=== PATIENT | male | born 1960 | race Caucasian/White ===

== ENCOUNTER 2017-08-16 12:46 | Inpatient (IN) ==
[2017-08-16] MEDS ORDERED: Aspirin 81 MG TAB.CHEW PO ONE (13:14)
[2017-08-16] MEDS ORDERED: *HR* LORazepam 2 MG/ML VIAL IVP ONE (13:15)
--- NOTE | 2017-08-16 13:15 | Emergency Department Note ---
Disposition Clinical Impression: Community acquired pneumonia, CHF (congestive heart failure), RONI (acute kidney injury), Respiratory distress, Elevated troponin Disposition: Admitted As Inpatient Condition: Critical Time of Disposition: 17:00 SOB HPI - General Chief Complaint: ED Shortness of Breath/Dyspnea Stated Complaint: PERLA Time Seen by Provider: 08/16/17 12:55 Source: patient, family Limitations: no limitations Nursing Notes Reviewed: Yes Vital Signs Reviewed: Yes - History of Present Illness Mr. Pitts, a 57-year-old man, presents from home for evaluation of dyspnea. Onset is ago and worsening. He now is unable to lie flat He has no chest pain, no fevers, no chills, no cough. He arrives wearing oxygen but states he is by with it. He has no home oxygen, no home breathing treatments, no history of COPD. PMH: CAD with ACS s/p stent in early . HTN, HLD, DM - Related Data Home Medications Medication Instructions Recorded Confirmed Allopurinol [Zyloprim 300 MG] 300 mg PO DAILY 08/16/17 08/16/17 Amlodipine Besylate 10 mg PO DAILY 08/16/17 08/16/17 Aspirin [Lo-Dose Aspirin EC] 81 mg PO DAILY 08/16/17 08/16/17 Carvedilol [Coreg] 6.25 mg PO BID 08/16/17 08/16/17 Cholecalciferol (D-3) [Vitamin D] 5,000 unit PO DAILY 08/16/17 08/16/17 Escitalopram [Lexapro] 20 mg PO DAILY 08/16/17 08/16/17 Fenofibrate Nanocrystallized 145 mg PO DAILY 08/16/17 08/16/17 [Tricor] Finasteride [Proscar] 5 mg PO DAILY 08/16/17 08/16/17 Insulin ASPART [Novolog] 5 - 15 unit SQ TIDWM 08/16/17 08/16/17 Insulin DETEMIR [Levemir Flextouch] 40 unit SQ HS 08/16/17 08/16/17 Insulin DETEMIR [Levemir Flextouch] 50 unit SQ QAM 08/16/17 08/16/17 Losartan Potassium [Cozaar] 100 mg PO DAILY 08/16/17 08/16/17 Metoprolol [Lopressor] 100 mg PO BID 08/16/17 08/16/17 Rosuvastatin [Crestor] 40 mg PO DAILY 08/16/17 08/16/17 Tamsulosin [Flomax] 0.4 mg PO DAILY 08/16/17 08/16/17 cloNIDine HCl [CloNIDine HCl] 0.1 mg PO DAILY 08/16/17 08/16/17 clonazePAM [Klonopin] 0.5 mg PO BID 08/16/17 08/16/17 glipiZIDE [Glucotrol] 5 mg PO BID 08/16/17 08/16/17 metFORMIN [Glucophage] 500 mg PO BID 08/16/17 08/16/17 Allergies Allergy/AdvReac Type Severity Reaction Status Date / Time No Known Allergies Allergy Verified 01/05/17 18:47 All systems ED: reviewed and negative except as stated. Review of Systems: As Per HPI Past Medical History - Past Medical History Medical history: Reports: coronary artery disease, diabetes, hyperlipidemia, hypertension, myocardial infarction Psychiatric history: Reports: anxiety, depression - Social History Smoking Status: Former smoker Smokeless Tobacco Status: No Alcohol use: Reports: none Physical Exam - General Limitations: no limitations General appearance: alert, in no apparent distress Course Course Narrative: Patient's presentation is concerning for multiple potential etiologies. He has no history of congestive heart are however, he has increasing pedal edema and orthopnea. Patient is dyspneic and diaphoretic also concerning for acute coronary syndrome. He has no chest pain. Chest x-ray concerning for pulmonary edema. Troponin is elevated at 0.17. Patient remains chest pain-free. Abdomen 1.71; this is above his baseline despite the setting of chronic kidney disease. Patient is in acute kidney injury. EKG is concerning for new left bundle-branch block. Most recent EKGs in 2013. Patient has not had a stress test or cardiac intervention in, "many years." Patient has done well on BiPAP. Chest x-ray concerning for pneumonia. Will admit the patient for pneumonia, elevated throat, congestive heart failure , bilateral pulmonary edema. I discussed the above with the patient and family at bedside. They have no additional questions or concerns this time. I also discussed the patient and his critical picture with the admitting physician, Dr. Rubio, who agrees to accept the patient for continued evaluation and management. Chest X-Ray 08/16/17 13:14 IMPRESSION: Pulmonary edema and trace bilateral pleural effusions. D/ / Keo Moreno MD / Keo Moreno MD Interpreting Provider: Keo Moreno MD Vital Signs Temperature 98.2 F 08/16/17 12:49 Pulse Rate 80 08/16/17 12:49 Respiratory Rate 22 08/16/17 12:49 Blood Pressure 201/123 08/16/17 12:49 O2 Sat by Pulse Oximetry 95 08/16/17 12:49 Temperature 98.2 F 08/16/17 12:49 Pulse Rate 69 08/16/17 16:29 Respiratory Rate 16 08/16/17 16:29 Blood Pressure 166/108 08/16/17 16:29 O2 Sat by Pulse Oximetry 96 08/16/17 16:29 Oxygen Delivery Oxygen Delivery Nasal Cannula Shortness of Breath/Dyspnea - Medical Records Medical records reviewed: Yes I reviewed the patient's medical records. - Lab Data Lab results reviewed: Yes I reviewed the patient's lab results. Result diagrams: 08/16/17 13:20 08/16/17 13:20 Lab Results 08/16/17 08/16/17 08/16/17 Range/Units 13:20 13:20 13:20 WBC 12.2 H (4.3-11.1) K/mcL RBC 4.35 (4.19-5.50) M/mcL Hgb 13.3 (12.9-16.9) g/dL Hct 39.2 (37.5-50.1) % MCV 90.1 (83.0-100.0) fL MCH 30.6 (28.0-33.3) pg MCHC 33.9 (31.6-35.5) g/dL RDW 13.8 (11.5-14.5) % Plt Count 300 (140-400) K/mcL MPV 10.3 (9.4-12.4) fL Immature Gran % 1.0 (0-4) % Seg Neutrophils % 86.6 % Lymphocytes % 5.9 % Monocytes % 5.6 % Eosinophils % 0.6 % Basophils % 0.3 % Neutrophils # 10.6 H (1.6-8.9) K/mcL Lymphocytes # 0.7 (0.6-4.6) K/mcL Monocytes # 0.7 (0.0-1.3) K/mcL Eosinophils # 0.1 (0.0-0.6) K/mcL Basophils # 0.0 (0.0-0.2) K/mcL PT 11.7 (9.4-12.1) Seconds INR 1.1 APTT 31.8 (26.0-36.0) Seconds D-Dimer 514 H (0-500) ng/mLFEU Sodium 140 (136-145) mEq/L Potassium 4.0 (3.5-4.5) mEq/L Chloride 107 (98-109) mEq/L Carbon Dioxide 26 (19-29) mEq/L BUN 20 (8-26) mg/dL Creatinine 1.71 H (0.72-1.25) mg/dL Est GFR ( Amer) 50 L (> 60) Est GFR (Non-Af Amer) 41 L (> 60) BUN/Creatinine Ratio 12 (6-26) Glucose 104 H (70-99) mg/dL POC Glucose (58-89) Calculated Osmolality 293 (280-300) Lactic Acid (0.5-2.2) mmol/L Calcium 9.3 (8.6-10.8) mg/dL Phosphorus (2.3-4.7) mg/dL Magnesium (1.6-2.6) mg/dL Troponin I (0-0.03) ng/mL 08/16/17 08/16/17 08/16/17 Range/Units 13:20 15:43 15:43 WBC (4.3-11.1) K/mcL RBC (4.19-5.50) M/mcL Hgb (12.9-16.9) g/dL Hct (37.5-50.1) % MCV (83.0-100.0) fL MCH (28.0-33.3) pg MCHC (31.6-35.5) g/dL RDW (11.5-14.5) % Plt Count (140-400) K/mcL MPV (9.4-12.4) fL Immature Gran % (0-4) % Seg Neutrophils % % Lymphocytes % % Monocytes % % Eosinophils % % Basophils % % Neutrophils # (1.6-8.9) K/mcL Lymphocytes # (0.6-4.6) K/mcL Monocytes # (0.0-1.3) K/mcL Eosinophils # (0.0-0.6) K/mcL Basophils # (0.0-0.2) K/mcL PT 12.0 (9.4-12.1) Seconds INR 1.1 APTT 33.5 (26.0-36.0) Seconds D-Dimer (0-500) ng/mLFEU Sodium (136-145) mEq/L Potassium (3.5-4.5) mEq/L Chloride (98-109) mEq/L Carbon Dioxide (19-29) mEq/L BUN (8-26) mg/dL Creatinine (0.72-1.25) mg/dL Est GFR ( Amer) (> 60) Est GFR (Non-Af Amer) (> 60) BUN/Creatinine Ratio (6-26) Glucose (70-99) mg/dL POC Glucose (58-89) Calculated Osmolality (280-300) Lactic Acid 0.9 (0.5-2.2) mmol/L Calcium (8.6-10.8) mg/dL Phosphorus (2.3-4.7) mg/dL Magnesium (1.6-2.6) mg/dL Troponin I 0.12 H* (0-0.03) ng/mL 08/16/17 08/16/17 08/16/17 Range/Units 15:43 15:43 16:01 WBC (4.3-11.1) K/mcL RBC (4.19-5.50) M/mcL Hgb (12.9-16.9) g/dL Hct (37.5-50.1) % MCV (83.0-100.0) fL MCH (28.0-33.3) pg MCHC (31.6-35.5) g/dL RDW (11.5-14.5) % Plt Count (140-400) K/mcL MPV (9.4-12.4) fL Immature Gran % (0-4) % Seg Neutrophils % % Lymphocytes % % Monocytes % % Eosinophils % % Basophils % % Neutrophils # (1.6-8.9) K/mcL Lymphocytes # (0.6-4.6) K/mcL Monocytes # (0.0-1.3) K/mcL Eosinophils # (0.0-0.6) K/mcL Basophils # (0.0-0.2) K/mcL PT (9.4-12.1) Seconds INR APTT (26.0-36.0) Seconds D-Dimer (0-500) ng/mLFEU Sodium (136-145) mEq/L Potassium (3.5-4.5) mEq/L Chloride (98-109) mEq/L Carbon Dioxide (19-29) mEq/L BUN (8-26) mg/dL Creatinine (0.72-1.25) mg/dL Est GFR ( Amer) (> 60) Est GFR (Non-Af Amer) (> 60) BUN/Creatinine Ratio (6-26) Glucose (70-99) mg/dL POC Glucose 66 (58-89) Calculated Osmolality (280-300) Lactic Acid (0.5-2.2) mmol/L Calcium (8.6-10.8) mg/dL Phosphorus 2.9 (2.3-4.7) mg/dL Magnesium 1.4 L (1.6-2.6) mg/dL Troponin I 0.13 H* (0-0.03) ng/mL - EKG Data EKG attestation: Yes I reviewed and interpreted this EKG. EKG results narrative: EKG data told August 2017 at 13:02 interpreted as sinus rhythm with a rate of 81. Normal intervals appear 133, QRS 177, QT/QTC 434/472. Normal axis. Left bundle branch block that is new and not on comparative EKG dated 12/22/2013. Otherwise nonspecific ST-T changes. Critical Care Time Critical Care Time: Yes Total Critical Care Time: 70 Attestation: Critical care time 35 minutes. Attestation Statement - Attestation Attestation: Patient was seen with resident physician. I reviewed the history, physical, assessment and plan, and agree with the findings. I also personally evaluated this patient and had [id number] time with this patient. 57-year-old male presents to the emergency department with chief complaint of shortness of breath. Patient states that his shortness of breath is gotten progressively worse the last 24-48 hours. He also has a history of anxiety. He states that he has been sweating because of the anxiety. He feels some tightness in his chest but not necessarily chest pain. No nausea vomiting or diarrhea. No abdominal pain. He does note that he has had increased swelling in the lower extremities with some weight gain over nonspecified. At time. Denies oxygen requirements at home. Denies CHF. Denies COPD. On exam vital signs patient is markedly hypertensive. Other vital signs show hypoxia. ENT is unremarkable but the. Patient appears diaphoretic. Heart regular rhythm and rate. Lungs do not hear any abnormalities. Abdomen is soft and nontender. Extremities show 1+ edema in the extremities bilaterally. Neurologically intact. ED course I will do a workup for pulmonary issues. D-dimer was mildly elevated so did order a CTA of the chest. Additionally will need to do a chest pain workup. Patient was started on BiPAP. Patient's troponin came back mildly elevated and with a left bundle branch block we called interventional cardiology. Their suggestion was to continue with the CT scan of the chest, and admission to medicine with possible cardiology consult. This revealed pneumonia in addition to CHF, in addition to the kidney dysfunction. We did note the patient had some renal dysfunction prior to the CT scan that we felt it was an acceptable risk considering the patient's presentation and need to exclude some of the causes of his elevated troponin and respiratory distress. Patient was started on a nitro drip, was also given Lasix. We will start on antibiotics and get blood cultures. Will and admitting to the hospitalist service for respiratory difficulty and pneumonia. Critical care time 70 minutes.
[2017-08-16 13:28] LABS: Basophils % 0.3 %; Eosinophils # 0.1 K/mcL (0.0-0.6); Eosinophils % 0.6 %; Hematocrit 39.2 % (37.5-50.1); Hemoglobin 13.3 g/dL (12.9-16.9); Lymphocytes # 0.7 K/mcL (0.6-4.6); Lymphocytes % 5.9 %; Mean Corpuscular HGB Conc 33.9 g/dL (31.6-35.5); Mean Corpuscular Hemoglobin 30.6 pg (28.0-33.3); Mean Corpuscular Volume 90.1 fL (83.0-100.0); Mean Platelet Volume 10.3 fL (9.4-12.4); Monocytes # 0.7 K/mcL (0.0-1.3); Monocytes % 5.6 %; Neutrophils # 10.6 K/mcL (1.6-8.9); Platelet Count 300 K/mcL (140-400); Red Blood Count 4.35 M/mcL (4.19-5.50); Red Cell Distribution Width 13.8 % (11.5-14.5); Segmented Neutrophils % 86.6 %
[2017-08-16 13:38] LABS: INR 1.1; Prothrombin Time 11.7 Seconds (9.4-12.1)
[2017-08-16 13:40] LABS: Activated Partial Thrombo Time 31.8 Seconds (26.0-36.0)
[2017-08-16 13:42] LABS: Calcium 9.3 mg/dL (8.6-10.8)
[2017-08-16] MEDS ORDERED: Furosemide 40 MG/4 ML VIAL IVP ONE (14:00)
[2017-08-16] MEDS: Nitroglycerin 25 MG/250 ML INFUS..BTL IVC SCH (14:10)
[2017-08-16] MEDS ORDERED: cefTRIAXone 1,000 MG in Water for inj. (sterile) 10 ML IVP ONE (15:10)
[2017-08-16 15:58] LABS: INR 1.1
[2017-08-16 16:00] LABS: Activated Partial Thrombo Time 33.5 Seconds (26.0-36.0)
[2017-08-16 16:02] LABS: Magnesium 1.4 mg/dL (1.6-2.6); Phosphorous 2.9 mg/dL (2.3-4.7)
[2017-08-16] MEDS ORDERED: Acetaminophen 325 MG TABLET PO ONE (16:24)
[2017-08-16] MEDS ORDERED: *HR* Dextrose 50 % in Water (Syg) 50 ML SYRINGE IVP PRN (17:41)
[2017-08-16] MEDS ORDERED: Dextrose Gel 15 GM PO PRN ×2 (17:41)
[2017-08-16] MEDS ORDERED: D5% in Water 1,000 ML IVC PRN (17:41)
[2017-08-16] MEDS ORDERED: Naloxone 0.4 MG/ML INJ IVP PRN (17:43)
[2017-08-16] MEDS ORDERED: Ondansetron 4 MG/2 ML VIAL IVP PRN (17:43)
[2017-08-16] MEDS ORDERED: *HR* Morphine 2 MG/ML SYRINGE IVP PRN (17:43)
[2017-08-16 17:56] LABS: Hemoglobin A1C 5.5 %
[2017-08-16] MEDS: Aspirin Enteric Coated 81 MG Tablet PO SCH (18:14)
[2017-08-16] MEDS: Azithromycin 500 MG in D5% in Water 250 ML IVPB SCH (18:14)
[2017-08-16] MEDS ORDERED: *HR* Heparin 5,000 UNIT/ML VIAL IVP PRN ×2 (18:25)
[2017-08-16] MEDS ORDERED: *HR* Heparin 5,000 UNIT/ML VIAL IVP ONE (18:25)
--- NOTE | 2017-08-16 18:26 | Internal Med History&Physical ---
Date of Encounter: 08/16/17 Time of Encounter: 18:00 Assessment and Plan (1) CHF (congestive heart failure) Current visit: Yes Status: Acute Acute CHF exacerbation, unspecified, unknown LVEF - newly diagnosed - causing dyspnea/orthopnea and lower leg edema - rule out ACS BNP - 823 Chest x-ray - pulmonary edema and trace bilateral pleural effusions Echocardiogram - pending Continue IV Lasix, Coreg, IV Heparin, IV Morphine, O2 via nasal cannula, IV Nitro Cardiology consult - discussed with Dr. Lainez Fluid restriction, strict I's and O's, daily weight Qualifiers: Congestive heart failure type: unspecified congestive heart failure type Congestive heart failure chronicity: acute Qualified Code(s): I50.9 - Heart failure, unspecified (2) Elevated troponin Current visit: Yes Status: Acute Mildly elevated troponin at 0.13 - probably due to CHF and demand ischemia - rule out ACS Start IV Heparin as per protocol for ACS Continue Aspirin, Crestor, Coreg EKG - sinus rhythm with LBBB Cycle troponin, EKG in a.m. Echocardiogram - pending Cardiology consult - discussed with Dr. Lainez (3) Community acquired pneumonia Current visit: Yes Status: Acute Community-acquired pneumonia, bibasilar consolidation, present on admission, likely bacterial - causing shortness of breath Continue empiric IV Rocephin, IV Azithromycin, DuoNeb breathing treatment Cultures - pending Chest x-ray - pulmonary edema with small bilateral effusions CTA chest - negative for PE, negative for aneurysm or dissection, by basilar airspace consolidation, mediastinal lymphadenopathy which is likely reactive WBC - 12.2 Mag - 1.4 Troponin - 0.13 EKG - sinus rhythm with LBBB Cardiac telemetry, continuous pulse ox, labs in a.m., monitor closely Qualifiers: Lung location: unspecified part of lung Qualified Code(s): J18.9 - Pneumonia, unspecified organism (4) CAD (coronary artery disease) Current visit: Yes Status: Acute Coronary artery disease status post stents 2 in the year 1999 Continue Aspirin, Crestor, Coreg, Nitro Elevated troponin, EKG with LBBB, rule out ACS Qualifiers: Coronary Disease-Associated Artery/Lesion type: [place] artery [place] vs. transplanted heart: [place] heart Associated angina: without angina Qualified Code(s): I25.10 - Atherosclerotic heart disease of [place] coronary artery without angina pectoris (5) Chronic kidney disease Current visit: Yes Status: Acute Chronic kidney disease probable stage III with RONI likely due to CHF - possible cardiorenal syndrome Patient was given IV contrast for CTA chest, he needs IV Lasix for CHF Monitor closely, repeat labs in a.m. Nephrology consult if renal function worsens Avoid nephrotoxic agents - Hold Metformin, Losartan Qualifiers: Chronic kidney disease stage: stage 3 (moderate) Qualified Code(s): N18.3 - Chronic kidney disease, stage 3 (moderate) (6) Hypertension Current visit: Yes Status: Acute Essential hypertension, uncontrolled, monitor Continue home dose of Coreg, IV Nitro IV Labetalol as needed for SBP >160 Qualifiers: Hypertension type: essential hypertension Qualified Code(s): I10 - Essential (primary) hypertension (7) Diabetes mellitus Current visit: Yes Status: Acute Type 2 diabetes mellitus, insulin-dependent, hyperglycemia Continue insulin sliding scale, glucose checks HbA1c - pending Qualifiers: Diabetes mellitus type: type 2 Diabetes mellitus complication status: with kidney complications Diabetes mellitus complication detail: with chronic kidney disease Diabetes mellitus group home insulin use: with group home use Chronic kidney disease stage: stage 3 (moderate) Qualified Code(s): E11.22 - Type 2 diabetes mellitus with diabetic chronic kidney disease; N18.3 - Chronic kidney disease, stage 3 (moderate); N18.3 - Chronic kidney disease, stage 3 ( moderate); Z79.4 - terminal gauger supervisor (current) use of insulin; Z79.4 - retirement ( current) use of insulin; Z79.4 - retirement (current) use of insulin; Z79.4 - terminal gauger supervisor (current) use of insulin (8) Hyperlipidemia Current visit: Yes Status: Acute Continue home dose of Crestor 40 mg, TriCor Qualifiers: Hyperlipidemia type: unspecified Qualified Code(s): E78.5 - Hyperlipidemia , unspecified (9) Anxiety and depression Current visit: Yes Status: Acute Chronic anxiety with depression - stable Continue home dose of Lexapro (10) DVT prophylaxis Current visit: Yes Status: Acute Continue IV Heparin due to elevated troponin Internal Medicine - H&P: HPI Chief complaint: Shortness of breath Admitted From: Emergency Dept Plans for Post Hospital Care: Home History of present illness: Mr. Pitts is a 57 year old male with past medical history of coronary artery disease s/p stents, insulin-dependent diabetes, hypertension, anxiety, hyperlipidemia, chronic kidney disease stage III and BPH. He presents to the ED with complaints of shortness of breath. Examined in the room. Patient is awake and alert. He is in mild discomfort due to shortness of breath. He is able to provide all history. He is able to speak in full sentences. and family are not bedside. They provide history as well. Patient states his shortness of breath started about 1 week ago, and is gradually worsening. He states he was sitting at home when he developed sudden onset shortness of breath. Symptoms are intermittent. He also has associated chest tightness but no chest pain. Denies diaphoresis. Denies palpitations. He states the shortness of breath is worse with exertion and also when laying flat. Patient states he wakes up in the middle of the night feeling short of breath. His also states that he has difficulty breathing at night. He also complains of mild cough. Patient also states his bilateral lower leg edema has been gradually worsening. He denies abdominal pain or vomiting or fever or headache or dizziness. No other associated symptoms. No alleviating factors. No other acute complaints at this time. Initial workup in the ED is significant for elevated troponin, elevated BNP. CTA chest is negative for PE. EKG shows sinus rhythm with new onset LBBB. Patient does have bibasilar airspace disease, likely pneumonia and mediastinal lymphadenopathy which is likely reactive. He will need IV antibiotics and IV Lasix. DuoNeb breathing treatment, supplemental O2. IV heparin for elevated troponin. Cardiology consult pending. Patient was initially on BiPAP in the ED , but is now doing well on 4 L nasal cannula. Patient and family have been explained about his guarded condition and plan of care in detail. They understood and agreed. No unanswered questions. Patient is a high risk due to elevated troponin, pneumonia and new onset CHF. CODE STATUS full code. Past Med Surg Social Fam HX - Past Medical History Medical history: coronary artery disease, diabetes, hyperlipidemia, hypertension , myocardial infarction Psychiatric history: anxiety, depression - Past Surgical History Surgical History: angioplasty/stent - Social History Smoking Status: Former smoker Smokeless Tobacco Status: No Alcohol use: none - Family History Father Hx Family Cardiac Disorders: Yes Mother Hx Family Endocrine Disorder: Yes (Diabetes) Internal Medicine - H&P: Meds Allopurinol [Zyloprim 300 MG] 300 mg PO DAILY 08/16/17 [History] Amlodipine Besylate 10 mg PO DAILY 08/16/17 [History] Aspirin [Lo-Dose Aspirin EC] 81 mg PO DAILY 08/16/17 [History] Carvedilol [Coreg] 6.25 mg PO BID 08/16/17 [History] Cholecalciferol (D-3) [Vitamin D] 5,000 unit PO DAILY 08/16/17 [History] Escitalopram [Lexapro] 20 mg PO DAILY 08/16/17 [History] Fenofibrate Nanocrystallized [Tricor] 145 mg PO DAILY 08/16/17 [History] Finasteride [Proscar] 5 mg PO DAILY 08/16/17 [History] Insulin ASPART [Novolog] 5 - 15 unit SQ TIDWM 08/16/17 [History] Insulin DETEMIR [Levemir Flextouch] 40 unit SQ HS 08/16/17 [History] Insulin DETEMIR [Levemir Flextouch] 50 unit SQ QAM 08/16/17 [History] Losartan Potassium [Cozaar] 100 mg PO DAILY 08/16/17 [History] Metoprolol [Lopressor] 100 mg PO BID 08/16/17 [History] Rosuvastatin [Crestor] 40 mg PO DAILY 08/16/17 [History] Tamsulosin [Flomax] 0.4 mg PO DAILY 08/16/17 [History] cloNIDine HCl [CloNIDine HCl] 0.1 mg PO DAILY 08/16/17 [History] clonazePAM [Klonopin] 0.5 mg PO BID 08/16/17 [History] glipiZIDE [Glucotrol] 5 mg PO BID 08/16/17 [History] metFORMIN [Glucophage] 500 mg PO BID 08/16/17 [History] 3 Allergy/AdvReac Type Severity Reaction Status Date / Time No Known Allergies Allergy Verified 01/05/17 18:47 All Systems PM: A 10-system review of systems was performed and is negative for pertinent findings except as documented above in the HPI. - Constitutional Constitutional: fatigue, no fever(s), no falls, no weakness - EENT Eyes: no blurry vision - Cardiovascular Cardiovascular ROS IM: chest pain (Chest pressure), dyspnea, dyspnea on exertion , edema, orthopnea, paroxysmal nocturnal dyspnea, no diaphoresis, no palpitations, no syncope - Respiratory Respiratory: cough, dyspnea, dyspnea on exertion, snoring, no hemoptysis, no wheezing, no chest congestion - Gastrointestinal Gastrointestinal: no abdominal pain, no bloating, no cramping, no diarrhea, no hematemesis, no hematochezia, no nausea, no vomiting - Genitourinary Genitourinary ROS male: no dysuria - Musculoskeletal Musculoskeletal ROS IM: no arthralgias - Neurological Neurological ROS: no abnormal speech, no confusion, no dizziness, no frequent falls, no loss of vision, no numbness, no tingling - Constitutional Vitals: Temp Pulse Resp BP Pulse Ox 98.3 F 71 20 168/108 97 08/16/17 16:51 08/16/17 17:30 08/16/17 16:51 08/16/17 17:30 08/16/17 16:51 General appearance: Present: cooperative, mild distress, A&O X 3, morbidly obese , pleasant, answers questions appropriately - Head Head exam: Present: atraumatic - Eye Eye exam: Present: EOMI - ENT ENT exam: Present: mucous membranes moist - Respiratory Respiratory exam: Present: rales (Mild bilateral), tachypnea. Absent: accessory muscle use, chest wall tenderness, respiratory distress, rhonchi, wheezes - Cardiovascular Cardiovascular exam: Present: RRR, +S1, +S2 - GI/Abdominal GI/Abdominal exam: Present: soft (Obese). Absent: distended, firm, guarding, tenderness - Extremities Exam Extremities exam: Present: pedal edema (Bilaterally 3+ pitting edema), radial pulses palpable and symmetrical. Absent: calf tenderness, cyanotic - Neurological Exam Neurological exam: Present: alert, CN II-XII intact, oriented X3, no focal deficits. Absent: facial droop, speech deficit Internal Med - H&P Results - Labs CBC & Chem 7: 08/16/17 13:20 08/16/17 13:20
[2017-08-16] MEDS ORDERED: Heparin 25,000 UNIT/500 ML D5W 25,000 UNIT/500 ML MLS IVC SCH (18:30)
[2017-08-16 19:14] LABS: Hematocrit 34.4 % (37.5-50.1); Hemoglobin 11.7 g/dL (12.9-16.9); Mean Corpuscular Hemoglobin 30.7 pg (28.0-33.3); Mean Corpuscular Volume 90.3 fL (83.0-100.0); Mean Platelet Volume 10.4 fL (9.4-12.4); Platelet Count 264 K/mcL (140-400); Red Blood Count 3.81 M/mcL (4.19-5.50)
[2017-08-16 19:19] LABS: INR 1.1; Prothrombin Time 12.1 Seconds (9.4-12.1)
[2017-08-16 19:22] LABS: Activated Partial Thrombo Time 33.1 Seconds (26.0-36.0)
[2017-08-16] MEDS: Furosemide 40 MG/4 ML VIAL IVP SCH (19:54)
[2017-08-16] MEDS: Ipratropium/Albuterol Neb 3 ML IH SCH ×2 (21:00→23:33)
[2017-08-16] MEDS: Insulin LISPRO 300 UNITS/3 ML VIAL SQ SCH (21:39)
[2017-08-16 21:40] LABS: Bilirubin,Urine Negative (Negative); Blood,Urine Trace (Negative); Clarity,Urine Clear (Clear); Color,Urine Yellow (Yellow); Glucose,Urine (UA) Normal (Normal); Ketones,Urine Negative (Negative); Leukocyte Esterase,Urine Negative (Negative); Nitrite,Urine Negative (Negative); Protein,Urine >=300 mg/dL (Neg-Trace); Specific Gravity,Urine 1.024 (1.010-1.025); Urobilinogen,Urine Normal (Normal)
[2017-08-16 21:45] LABS: Bacteria,Urine None Seen per hpf (None-Few); Hyaline Casts,Urine None Seen per lpf (None-Few); Squamous Epithelial Cell,Urine Moderate per lpf (None-Few); WBC,Urine 0-3 per hpf (0-3)
[2017-08-16] MEDS: Acetaminophen 325 MG TABLET PO PRN (23:49)
[2017-08-17] MEDS ORDERED: *HR* Heparin 5,000 UNIT/ML VIAL SQ SCH
[2017-08-17 02:55] LABS: Basophils # 0.1 K/mcL (0.0-0.2); Basophils % 0.6 %; Eosinophils # 0.2 K/mcL (0.0-0.6); Eosinophils % 2.5 %; Hematocrit 33.4 % (37.5-50.1); Hemoglobin 11.2 g/dL (12.9-16.9); Immature Granulocytes % 1.2 % (0-4); Immature Platelets 3.6 % (1.1-6.1); Lymphocytes # 1.5 K/mcL (0.6-4.6); Lymphocytes % 17.4 %; Mean Corpuscular HGB Conc 33.5 g/dL (31.6-35.5); Mean Corpuscular Hemoglobin 30.7 pg (28.0-33.3); Mean Corpuscular Volume 91.5 fL (83.0-100.0); Mean Platelet Volume 10.2 fL (9.4-12.4); Monocytes # 0.7 K/mcL (0.0-1.3); Monocytes % 8.5 %; Neutrophils # 5.9 K/mcL (1.6-8.9); Platelet Count 247 K/mcL (140-400); Red Blood Count 3.65 M/mcL (4.19-5.50); Red Cell Distribution Width 14.1 % (11.5-14.5); Segmented Neutrophils % 69.8 %
[2017-08-17 03:09] LABS: Calcium 8.5 mg/dL (8.6-10.8); Magnesium 1.9 mg/dL (1.6-2.6); Potassium 3.2 mEq/L (3.5-4.5)
[2017-08-17] MEDS: Ipratropium/Albuterol Neb 3 ML IH SCH ×6 (03:15→23:13)
[2017-08-17] MEDS: *HR* Labetalol 20 MG/4 ML SYRINGE IVP PRN ×5 (03:49→23:20)
[2017-08-17] MEDS: Insulin LISPRO 300 UNITS/3 ML VIAL SQ SCH ×4 (07:18→20:29)
[2017-08-17] MEDS: Furosemide 40 MG/4 ML VIAL IVP SCH ×2 (07:25→20:28)
[2017-08-17] MEDS: Fenofibrate 54 MG TABLET PO SCH (07:25)
[2017-08-17] MEDS: cefTRIAXone 1,000 MG in Water for inj. (sterile) 10 ML IVPB SCH (07:25)
[2017-08-17] MEDS: Finasteride 5 MG TABLET PO SCH (07:26)
[2017-08-17] MEDS: Aspirin Enteric Coated 81 MG Tablet PO SCH (07:26)
[2017-08-17] MEDS: Cholecalciferol (D-3) 1,000 UNIT TABLET PO SCH (07:26)
[2017-08-17] MEDS ORDERED: Perflutren Lipid Microsphere 1.3 ML in 0.9 % Sodium Chloride 8.7 ML IVP ONE (08:32)
[2017-08-17] MEDS ORDERED: cloNIDine HCl 0.1 MG TABLET PO SCH (09:00)
[2017-08-17] MEDS ORDERED: amLODIPine 5 MG TABLET PO SCH (09:00)
--- NOTE | 2017-08-17 09:57 | Cardiology Consult Note ---
Addendum entered and electronically signed by Juancho Bustillos DO 08/17/17 15:54: no cardiac rehab indicated due to trop elevation from demand ischemia Original Note: <Juancho Bustillos - Last Filed: 08/17/17 11:04> Date of Encounter: 08/17/17 Time of Encounter: 09:47 Assessment and Plan (1) Elevated troponin Current Visit: Yes Status: Acute Most likely Demand Ischemia 2/2 acute exacerbation of CHF/RONI on CKD vs ACS. no chest pain, but patient has been diaphoretic. Patient has previous hx of 2 stent placements in 1999. 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 EKG : new Left bundle branch block. elevated trops, and BNP. - Echo pending, will consider cath - continue IV heparin for now - continue ASA, statin, coreg, O2, morphine PRN, nitro (2) CHF (congestive heart failure) Current Visit: Yes Status: Acute patient has PND, orthopnea, dyspnea on exertion, and leg edema. Risks include uncontrolled BP, HLD, DM, hx of smoking. CXR - pulmonary edema BNP 823, and trop 0.12, 0.13, 0.16, 0.15 - rule out ACS. - echo - pending. - Fluid/Na restriction. NPO for now. - continue Lasix, Coreg, morphine, O2, Nitro, ASA, Statin, heparin Qualifiers: Congestive heart failure type: unspecified congestive heart failure type Congestive heart failure chronicity: acute Qualified Code(s): I50.9 - Heart failure, unspecified (3) CAD (coronary artery disease) Current Visit: Yes Status: Acute Previous 2 stents for MD. Qualifiers: Coronary Disease-Associated Artery/Lesion type: [place] artery [place] vs. transplanted heart: [place] heart Associated angina: without angina Qualified Code(s): I25.10 - Atherosclerotic heart disease of [place] coronary artery without angina pectoris (4) Hypertension Current Visit: Yes Status: Acute When patient seen, systolic 189. Patient reports blood pressure has risen in the last week. home rx: metoprolol 100 BID, clonidine 0.1, losartan 100 PO, and coreg 6.25 BID. Currently on Labetalol 10 mg IV PRN, Furosemide 40 BID - increased Carvedilol from 6.25 to 12.5 BID. Qualifiers: Hypertension type: essential hypertension Qualified Code(s): I10 - Essential (primary) hypertension Discussion w patient/family: The assessment and plan as outlined above was discussed with the patient and/or family members who expressed understanding and agreement. All questions were answered. Thank you for involving us in the care of your patient. Please call with any questions. History of Present Illness Consult date: 08/17/17 Requesting physician: Charbel Sanchez Consult reason: new CHF/elevated trops Chief complaint: Dyspnea History of present illness: Mr. Pitts is a 57 year old male w/ hx of CAD w/ 2 stents in the early , HTN, HLD, T2DM, CKD3 presented w/ trouble breathing. Cardiology is consulted for elevated trops and suspected new CHF. Patient was seen in with daughter and . Patient started having SOB last Thursday, started while at rest and has progressively gotten worse. reports patient wakes up in the middle of the night trying to catch his breath 2-3x a night in the last week. Patient states he's required more pillows to sleep in the last week, and has started sleeping in the recliner, SOB worsens with exertion, and he's had significantly worse Leg edema. Patient denies chest pain but has had diaphoresis for the last week. Patient reports quiting smoking, drinking and marijuana 14-15 years ago when he had his MD. Patient reports eating whatever he wants that includes fast foot. Past Med Surg Social Fam HX - Past Medical History Medical history: coronary artery disease, diabetes, hyperlipidemia, hypertension , myocardial infarction Psychiatric history: anxiety, depression - Past Surgical History Surgical History: angioplasty/stent - Social History Smoking Status: Former smoker Smokeless Tobacco Status: No Alcohol use: none - Family History Father Hx Family Cardiac Disorders: Yes Mother Hx Family Endocrine Disorder: Yes (Diabetes) Medications and Allergies Allopurinol [Zyloprim 300 MG] 300 mg PO DAILY 08/16/17 [History] Amlodipine Besylate 10 mg PO DAILY 08/16/17 [History] Aspirin [Lo-Dose Aspirin EC] 81 mg PO DAILY 08/16/17 [History] Carvedilol [Coreg] 6.25 mg PO BID 08/16/17 [History] Cholecalciferol (D-3) [Vitamin D] 5,000 unit PO DAILY 08/16/17 [History] Escitalopram [Lexapro] 20 mg PO DAILY 08/16/17 [History] Fenofibrate Nanocrystallized [Tricor] 145 mg PO DAILY 08/16/17 [History] Finasteride [Proscar] 5 mg PO DAILY 08/16/17 [History] Insulin ASPART [Novolog] 5 - 15 unit SQ TIDWM 08/16/17 [History] Insulin DETEMIR [Levemir Flextouch] 40 unit SQ HS 08/16/17 [History] Insulin DETEMIR [Levemir Flextouch] 50 unit SQ QAM 08/16/17 [History] Losartan Potassium [Cozaar] 100 mg PO DAILY 08/16/17 [History] Metoprolol [Lopressor] 100 mg PO BID 08/16/17 [History] Rosuvastatin [Crestor] 40 mg PO DAILY 08/16/17 [History] Tamsulosin [Flomax] 0.4 mg PO DAILY 08/16/17 [History] cloNIDine HCl [CloNIDine HCl] 0.1 mg PO DAILY 08/16/17 [History] clonazePAM [Klonopin] 0.5 mg PO BID 08/16/17 [History] glipiZIDE [Glucotrol] 5 mg PO BID 08/16/17 [History] metFORMIN [Glucophage] 500 mg PO BID 08/16/17 [History] 3 Allergy/AdvReac Type Severity Reaction Status Date / Time No Known Allergies Allergy Verified 01/05/17 18:47 All Systems Review: A 10-system review of systems was performed and is negative for pertinent findings except as documented above in the HPI. - Constitutional Constitutional: fatigue, no anorexia, no chills, no fever(s), no headache(s) - EENT Eyes: no blurred vision, no loss of vision - Cardiovascular Cardiovascular: as per HPI - Respiratory Respiratory: cough, dyspnea, no hemoptysis - Gastrointestinal Gastrointestinal: no abdominal pain - Genitourinary Genitourinary: dysuria, other (continues to urinate but has decreased in the last week) - Integumentary Integumentary: no erythema, no rash - Neurological Neurological: no abnormal speech, no dizziness, no loss of vision, no memory loss, no numbness - Psychiatric Psychiatric: no anxiety (reports history of anxiety but has since been controlled since starting new medication 2 years ago) - Hematological/Lymphatic Hematologic/Lymphatic: no easy bleeding, no easy bruising Physical Examination Vital Signs, Last 4 Hours Temp Pulse Resp BP Pulse Ox 08/17/17 08:07 19 96 08/17/17 07:06 98.4 F 70 19 173/98 96 General: Conversant, No Apparent Distress (mildly anxious) HEENT: Atraumatic, Normocephaly, Mucus Membranes Moist Neck: No JVD, Normal carotid pulses Cardiac: Reg Rate and Rhythm, Normal S1 and S2, No Murmur Lungs: Normal Breath Sounds, Other (mild expiratory wheeze lower right lobe) Neuro: Alert and responsive, No focal deficits noted Abdomen: Soft Skin: No rashes noted on visualized skin Musculoskeletal: No Chest Wall Tenderness Extremities: No Clubbing, No Cyanosis, Normal Pulses, Other (2/4 BLE pitting edema) Results 08/17/17 02:47 08/17/17 02:47 Lab Results 08/16/17 08/16/17 08/16/17 18:50 18:50 21:16 WBC 9.4 Hgb 11.7 L D Hct 34.4 L Plt Count 264 INR 1.1 APTT 33.1 Sodium Potassium Chloride Carbon Dioxide BUN Creatinine Glucose Calcium Magnesium Troponin I 0.16 H* 08/17/17 08/17/17 08/17/17 02:47 02:47 02:47 WBC 8.4 Hgb 11.2 L Hct 33.4 L Plt Count 247 INR APTT Sodium 140 Potassium 3.2 L Chloride 106 Carbon Dioxide 24 BUN 22 Creatinine 2.02 H Glucose 113 H Calcium 8.5 L Magnesium 1.9 Troponin I 0.15 H* 08/17/17 02:47 WBC Hgb Hct Plt Count INR APTT 36.4 H Sodium Potassium Chloride Carbon Dioxide BUN Creatinine Glucose Calcium Magnesium Troponin I Consult Discharge Plan - Plan Referrals: Araceli Massey CNP [Advanced Practice Nurse] - 08/26/17 12:30 pm Brooklyn Kirkpatrick CNP [Advanced Practice Nurse] - (office will call patient at home with follow up appointment) <Belinda Kovacs - Last Filed: 08/17/17 17:18> Date of Encounter: 08/17/17 - Attending Attestation I examined this patient and my medical decision-making was reviewed with the Resident Physician. I agree with the documented findings, disposition and treatment plan as described except to the extent set forth below. Mr. Pitts presented with worsening SOB and LE edema recently. He denies chest pain. On admission, he was noted to have ARF on what appears to be worsening CKD. ECG shows LBBB which is new when compared to ECG from 2014 - no intervening ECGs to review. However, Echo demonstrated normal EF 50% with normal wall motion. Patient has been hemodynamically stable. Troponins appear elevated but flat in setting of ARF which appears related to demand ischemia. Recommend IV diuresis - would also consider Nephrology consultation. Appears he was on lopressor at home - recommend restarting and stopping coreg. Ok to continue IV heparin for 48h. Continue aspirin and statin. Can consider outpatient stress testing once clinical status improves. Assessment and Plan Discussion w patient/family: The assessment and plan as outlined above was discussed with the patient and/or family members who expressed understanding and agreement. All questions were answered. Thank you for involving us in the care of your patient. Please call with any questions. History of Present Illness History of present illness: Mr. Pitts is a 57 year old male All Systems Review: A 10-system review of systems was performed and is negative for pertinent findings except as documented above in the HPI. Physical Examination Vital Signs, Last 4 Hours Temp Pulse Resp BP Pulse Ox 08/17/17 16:30 18 94 08/17/17 15:45 98.4 F 86 18 157/96 94 08/17/17 14:16 72 162/94 08/17/17 13:10 174/100 Results 08/17/17 02:47 08/17/17 02:47 Lab Results 08/16/17 08/16/17 08/16/17 18:50 18:50 21:16 WBC 9.4 Hgb 11.7 L D Hct 34.4 L Plt Count 264 INR 1.1 APTT 33.1 Sodium Potassium Chloride Carbon Dioxide BUN Creatinine Glucose Calcium Magnesium Troponin I 0.16 H* 08/17/17 08/17/17 08/17/17 02:47 02:47 02:47 WBC 8.4 Hgb 11.2 L Hct 33.4 L Plt Count 247 INR APTT Sodium 140 Potassium 3.2 L Chloride 106 Carbon Dioxide 24 BUN 22 Creatinine 2.02 H Glucose 113 H Calcium 8.5 L Magnesium 1.9 Troponin I 0.15 H* 08/17/17 08/17/17 08/17/17 02:47 10:20 10:20 WBC Hgb Hct Plt Count INR APTT 36.4 H 49.8 H Sodium Potassium Chloride Carbon Dioxide BUN Creatinine Glucose Calcium Magnesium Troponin I 0.09 H*
[2017-08-17] MEDS: amLODIPine 5 MG TABLET PO SCH (11:59)
[2017-08-17] MEDS: *HR* LORazepam 2 MG/ML VIAL IVP PRN ×2 (12:45→23:21)
[2017-08-17] MEDS: Nitroglycerin 25 MG/250 ML INFUS..BTL IVC SCH (14:05)
--- NOTE | 2017-08-17 15:05 | Electrocardiograph Report ---
[place] [id number] Test Date: 2017-08-16 Pat Name: Solo Pitts Department: 103 Room: 2N11 Gender: M Veterinary Practice Manager: : 1960 Requested By: Kenton Dhaliwal Order Number: [id number] Reading MD: Eduin Lopez MD Measurements Intervals [place] Rate: 81 P: 37 ID: 133 QRS: 24 QRSD: 177 T: 201 QT: 434 QTc: 472 Interpretive Statements SINUS RHYTHM LEFT BUNDLE BRANCH BLOCK Electronically Signed On 08-17-2017 15:04:14 EST by Eduin Lopez MD
--- NOTE | 2017-08-17 15:13 | Electrocardiograph Report ---
[place] [id number] Test Date: 2017-08-16 Pat Name: Solo Pitts Department: 110 Room: 2N11 Gender: M Visual Effects Artist: MARNI : 1960 Requested By: Umberto Funk Order Number: [id number] Reading MD: Eduin Lopez MD Measurements Intervals [place] Rate: 63 P: 31 NM: 135 QRS: 17 QRSD: 190 T: 187 QT: 520 QTc: 528 Interpretive Statements SINUS RHYTHM LEFT BUNDLE BRANCH BLOCK Electronically Signed On 08-17-2017 15:12:02 EST by Eduin Lopez MD
--- NOTE | 2017-08-17 15:14 | Electrocardiograph Report ---
[place] [address] Test Date: 2017-08-17 Pat Name: Solo Pitts Department: 110 Room: 2N11 Gender: M Cork Tipper: FABI : 1960 Requested By: Charbel Sanchez Order Number: [id number] Reading MD: Eduin Lopez MD Measurements Intervals [place] Rate: 71 P: 56 NC: 165 QRS: 35 QRSD: 194 T: 220 QT: 495 QTc: 517 Interpretive Statements SINUS RHYTHM LEFT BUNDLE BRANCH BLOCK Electronically Signed On 08-17-2017 15:12:58 EST by Eduin Lopez MD
--- NOTE | 2017-08-17 15:20 | Internal Med Progress Note ---
Date of Encounter: 08/17/17 Time of Encounter: 10:40 - Assessment and plan (1) CHF (congestive heart failure) Current Visit: Yes Status: Acute Assessment and plan: Acute CHF exacerbation, diastolic dysfunction, LVEF 50% - newly diagnosed - causing dyspnea/orthopnea and lower leg edema - symptoms slowly improving Patient did not require BiPAP last night and is currently doing well on NC, IV heparin can be discontinued BNP - 823 Chest x-ray - pulmonary edema and trace bilateral pleural effusions Echocardiogram - LVEF 50%, normal LV function, moderate LV diastolic dysfunction , normal RV function Continue IV Lasix, Coreg, IV Morphine, O2 via nasal cannula, Nitro Cardiology consult - recommendations reviewed, appreciate input Fluid restriction, strict I's and O's, daily weight, cardiac telemetry, labs in a.m. Qualifiers: Congestive heart failure type: unspecified congestive heart failure type Congestive heart failure chronicity: acute Qualified Code(s): I50.9 - Heart failure, unspecified (2) Elevated troponin Current Visit: Yes Status: Acute Assessment and plan: Mildly elevated troponin at 0.16, trending down - probably due to CHF and demand ischemia - unlikely ACS IV Heparin discontinued Continue Aspirin, Crestor, Coreg EKG - sinus rhythm with LBBB Cycle troponin, EKG in a.m. Echocardiogram - reviewed Cardiology consult - recommendations reviewed, appreciate input (3) Community acquired pneumonia Current Visit: Yes Status: Acute Assessment and plan: Community-acquired pneumonia, bibasilar consolidation, present on admission, likely bacterial - causing shortness of breath Continue empiric IV Rocephin, IV Azithromycin, DuoNeb breathing treatment Cultures - pending Chest x-ray - pulmonary edema with small bilateral effusions CTA chest - negative for PE, negative for aneurysm or dissection, by basilar airspace consolidation, mediastinal lymphadenopathy which is likely reactive WBC - 8.4 Mag - 1.4 Troponin - 0.16, trending down EKG - sinus rhythm with LBBB Cardiac telemetry, continuous pulse ox, labs in a.m., monitor closely Qualifiers: Lung location: unspecified part of lung Qualified Code(s): J18.9 - Pneumonia, unspecified organism (4) CAD (coronary artery disease) Current Visit: Yes Status: Acute Assessment and plan: Coronary artery disease status post stents 2 in the year 1999 Continue Aspirin, Crestor, Coreg, Nitro Qualifiers: Coronary Disease-Associated Artery/Lesion type: [place] artery [place] vs. transplanted heart: [place] heart Associated angina: without angina Qualified Code(s): I25.10 - Atherosclerotic heart disease of [place] coronary artery without angina pectoris (5) Chronic kidney disease Current Visit: Yes Status: Acute Assessment and plan: Chronic kidney disease probable stage III with RONI likely due to CHF - possible cardiorenal syndrome - creatinine is above baseline Patient was given IV contrast for CTA chest, he needs IV Lasix for CHF Monitor closely, repeat labs in a.m. Nephrology consult if renal function worsens Avoid nephrotoxic agents - Hold Metformin, Losartan Qualifiers: Chronic kidney disease stage: stage 3 (moderate) Qualified Code(s): N18.3 - Chronic kidney disease, stage 3 (moderate) (6) Hypertension Current Visit: Yes Status: Acute Assessment and plan: Essential hypertension, uncontrolled, monitor add Norvasc, Lopressor IV Labetalol as needed for SBP >160 Qualifiers: Hypertension type: essential hypertension Qualified Code(s): I10 - Essential (primary) hypertension (7) Diabetes mellitus Current Visit: Yes Status: Acute Assessment and plan: Type 2 diabetes mellitus, insulin-dependent, hyperglycemia Continue insulin sliding scale, glucose checks HbA1c - 5.5 Qualifiers: Diabetes mellitus type: type 2 Diabetes mellitus complication status: with kidney complications Diabetes mellitus complication detail: with chronic kidney disease Diabetes mellitus senior care insulin use: with senior care use Chronic kidney disease stage: stage 3 (moderate) Qualified Code(s): E11.22 - Type 2 diabetes mellitus with diabetic chronic kidney disease; N18.3 - Chronic kidney disease, stage 3 (moderate); N18.3 - Chronic kidney disease, stage 3 ( moderate); Z79.4 - petroleum terminal plant operator (current) use of insulin; 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; Z79.4 - retirement (current) use of insulin; Z79.4 - petroleum terminal plant operator (current) use of insulin (8) Hyperlipidemia Current Visit: Yes Status: Acute Assessment and plan: Continue home dose of Crestor 40 mg, TriCor Qualifiers: Hyperlipidemia type: unspecified Qualified Code(s): E78.5 - Hyperlipidemia , unspecified (9) Anxiety and depression Current Visit: Yes Status: Acute Assessment and plan: Chronic anxiety with depression - stable Continue home dose of Lexapro, IV Ativan as needed (10) DVT prophylaxis Current Visit: Yes Status: Acute Assessment and plan: Start heparin subcutaneous twice daily - Time Spent With Patient 25 - 35 minutes - Subjective Interval history: Examined this morning. Patient is awake and alert. Not in any distress. Denies chest pain. States he continues to have shortness of breath with exertion, but has significantly improved. No fever. Blood pressure has been uncontrolled. No other acute events or complaints. Cardiology has evaluated the patient. Troponin is trending down. IV heparin can be discontinued. LVEF is 50% and overall function appears normal. Moderate LV diastolic dysfunction. - Constitutional Vitals: Temp Pulse Resp BP Pulse Ox 98.9 F 72 20 162/94 94 08/17/17 10:31 08/17/17 14:16 08/17/17 10:31 08/17/17 14:16 08/17/17 12:50 General appearance: Present: cooperative, A&O X 3, morbidly obese, pleasant, no acute distress, answers questions appropriately Exam: Patient does seem to be anxious - Head Head exam: Present: atraumatic - Eye Eye exam: Present: EOMI - ENT ENT exam: Present: mucous membranes moist - Respiratory Respiratory exam: Present: rales (Mild bibasilar, otherwise clear to auscultation). Absent: accessory muscle use, chest wall tenderness, respiratory distress, rhonchi, wheezes, tachypnea - Cardiovascular Cardiovascular exam: Present: RRR, +S1, +S2 - GI/Abdominal GI/Abdominal exam: Present: soft (Obese). Absent: distended, firm, guarding, tenderness - Extremities Exam Extremities exam: Present: pedal edema (Bilateral 3+ pitting edema), radial pulses palpable and symmetrical. Absent: calf tenderness, cyanotic - Neurological Exam Neurological exam: Present: alert, oriented X3, no focal deficits. Absent: facial droop, speech deficit Internal Medicine: Result - Labs CBC & Chem 7: 08/17/17 02:47 08/17/17 02:47 Labs: Short CBC 08/16/17 08/17/17 Range/Units 18:50 02:47 WBC 9.4 8.4 (4.3-11.1) K/mcL Hgb 11.7 L D 11.2 L (12.9-16.9) g/dL Hct 34.4 L 33.4 L (37.5-50.1) % Plt Count 264 247 (140-400) K/mcL Neutrophils # 5.9 (1.6-8.9) K/mcL BMP 08/17/17 02:47 Sodium 140 Potassium 3.2 L Chloride 106 Carbon Dioxide 24 BUN 22 Creatinine 2.02 H Glucose 113 H Calcium 8.5 L Cardiac Enzymes 08/16/17 08/17/17 08/17/17 Range/Units 21:16 02:47 10:20 Troponin I 0.16 H* 0.15 H* 0.09 H* (0-0.03) ng/mL Urine 08/16/17 Range/Units 21:20 Urine Color Yellow (Yellow) Urine Clarity Clear (Clear) Urine pH 6.0 (5.0-8.0) pH Units Ur Specific [place] 1.024 (1.010-1.025) Urine Protein >=300 H (Neg-Trace) mg/dL Urine Glucose (UA) Normal (Normal) mg/dL - ABG Interpretation ABG results: PT/INR, D-dimer PT 12.1 Seconds (9.4-12.1) 08/16/17 18:50 D-Dimer 514 ng/mLFEU (0-500) H 08/16/17 13:20 - Impressions Impressions Echocardiogram 08/16/17 17:50 Impressions: LVEF 50%. Not all LV segments were well visualized, but overall function appears grossly normal. Mild concentric left ventricular hypertrophy. Atypical septal motion possibly due to a bundle branch block. Moderate left ventricular diastolic dysfunction. Right ventricular size not well visualized, but function appears grossly normal. Mild mitral regurgitation. No evidence of pulmonary hypertension identified. Left Ventricular Wall Motion: Rest Echo Findings All wall segments showed normal motion. Findings: Study Quality * Technically sub-optimal due to body habitus. ECG Findings * Sinus rhythm, possible bundle branch block. Left Ventricle * LVEF 50%. Not all LV segments were well visualized, but overall function appears grossly normal. * Normal LV chamber size. * Mild concentric left ventricular hypertrophy. * Atypical septal motion possibly due to a bundle branch block. * Moderate left ventricular diastolic dysfunction. Right Ventricle * Right ventricular size not well visualized, but function appears grossly normal. Left Atrium * Moderately dilated left atrium. Right Atrium * Mildly dilated right atrium. Interatrial Septum * Interatrial septum not well evaluated. Aortic Valve * Aortic valve not well visualized. * No aortic regurgitation. * No aortic stenosis. Mitral Valve * Normal mitral valve structure. * Mild mitral regurgitation. * No mitral stenosis. Tricuspid Valve * Normal tricuspid valve structure and function. * Trace tricuspid regurgitation. * No evidence of pulmonary hypertension identified. Pulmonic Valve * Pulmonic valve not well visualized. * No pulmonic regurgitation. Aorta * Normally sized aortic root. Pericardium * The pericardium appears normal. IVC * The IVC is not well evaluated. Pulmonary Artery * Pulmonary artery not well visualized. Consult Discharge Plan - Plan Referrals: Araceli Massey CNP [Advanced Practice Nurse] - 08/26/17 12:30 pm Brooklyn Kirkpatrick CNP [Advanced Practice Nurse] - (office will call patient at home with follow up appointment)
[2017-08-17] MEDS: Metoprolol 100 MG TABLET PO SCH ×2 (15:46→20:27)
[2017-08-17] MEDS: *HR* Heparin 5,000 UNIT/ML VIAL SQ SCH (17:38)
[2017-08-17] MEDS: Azithromycin 500 MG in D5% in Water 250 ML IVPB SCH (17:40)
[2017-08-18] MEDS: Ipratropium/Albuterol Neb 3 ML IH SCH ×6 (04:02→23:30)
[2017-08-18] MEDS: *HR* Heparin 5,000 UNIT/ML VIAL SQ SCH ×2 (06:06→17:16)
[2017-08-18] MEDS: *HR* LORazepam 2 MG/ML VIAL IVP PRN (06:19)
[2017-08-18 07:23] LABS: Basophils % 0.5 %; Eosinophils # 0.3 K/mcL (0.0-0.6); Eosinophils % 3.1 %; Hematocrit 35.8 % (37.5-50.1); Hemoglobin 12.2 g/dL (12.9-16.9); Immature Granulocytes % 1.5 % (0-4); Lymphocytes # 0.9 K/mcL (0.6-4.6); Lymphocytes % 11.2 %; Mean Corpuscular HGB Conc 34.1 g/dL (31.6-35.5); Mean Corpuscular Hemoglobin 30.8 pg (28.0-33.3); Mean Corpuscular Volume 90.4 fL (83.0-100.0); Mean Platelet Volume 10.4 fL (9.4-12.4); Monocytes # 0.7 K/mcL (0.0-1.3); Monocytes % 8.1 %; Neutrophils # 6.2 K/mcL (1.6-8.9); Platelet Count 257 K/mcL (140-400); Red Blood Count 3.96 M/mcL (4.19-5.50); Red Cell Distribution Width 13.9 % (11.5-14.5); Segmented Neutrophils % 75.6 %
[2017-08-18 07:29] LABS: INR 1.2; Prothrombin Time 12.5 Seconds (9.4-12.1)
[2017-08-18 07:50] LABS: Calcium 8.9 mg/dL (8.6-10.8)
[2017-08-18] MEDS: Insulin LISPRO 300 UNITS/3 ML VIAL SQ SCH ×4 (08:01→21:06)
[2017-08-18] MEDS: Finasteride 5 MG TABLET PO SCH (08:19)
[2017-08-18] MEDS: Metoprolol 100 MG TABLET PO SCH ×2 (08:19→21:11)
[2017-08-18] MEDS: Fenofibrate 54 MG TABLET PO SCH (08:19)
[2017-08-18] MEDS: Aspirin Enteric Coated 81 MG Tablet PO SCH (08:19)
[2017-08-18] MEDS: amLODIPine 5 MG TABLET PO SCH (08:19)
[2017-08-18] MEDS: cefTRIAXone 1,000 MG in Water for inj. (sterile) 10 ML IVPB SCH (08:20)
[2017-08-18] MEDS: Cholecalciferol (D-3) 1,000 UNIT TABLET PO SCH (08:20)
[2017-08-18] MEDS: Furosemide 40 MG/4 ML VIAL IVP SCH ×2 (08:20→21:10)
--- NOTE | 2017-08-18 08:26 | Nephrology Consult Note ---
Date of Encounter: 08/18/17 Time of Encounter: 08:20 Assessment and Plan (1) RONI (acute kidney injury) Current Visit: Yes Status: Acute Scr 1.92, was 2.02 yesterday GFR 36, was 34 yesterday Baseline GFR appears to be 54 based on limited past labs Patient currently on Lasix 40mg IV BID and had a CT with contrast 2 days ago which has most likely contributed to his RONI Agree with holding Metformin and Losartan Had 4600ml UOP yesterday-caution with such high volume output. K+ 3.0- recommend replacing Will do RONI workup to include urine culutre, urine sodium, urine creatinine, urine eosinophils, CPK serum uric acid, and renal ultrasound If patient is scheduled to get a cath will need Mucomyst ordered along with IV fluids before and after heart cath Avoid nephrotoxins if possible (2) CKD (chronic kidney disease) stage 3, GFR 30-59 ml/min Current Visit: Yes Status: Acute CKD workup to include: PTH, C3 and C4 compliments, Vitamin D25-OH, SASHA, SPEP, UPEP, urine albumin to creatine ratio Continue strict I/Os (3) CHF (congestive heart failure) Current Visit: Yes Status: Acute per cardiology/primary teams Qualifiers: Congestive heart failure type: unspecified congestive heart failure type Congestive heart failure chronicity: acute Qualified Code(s): I50.9 - Heart failure, unspecified (4) Diabetes mellitus Current Visit: Yes Status: Acute per primary team Qualifiers: Diabetes mellitus type: type 2 Diabetes mellitus complication status: with kidney complications Diabetes mellitus complication detail: with chronic kidney disease Diabetes mellitus shelter insulin use: with petroleum terminal plant operator use Chronic kidney disease stage: stage 3 (moderate) Qualified Code(s): E11.22 - Type 2 diabetes mellitus with diabetic chronic kidney disease; N18.3 - Chronic kidney disease, stage 3 (moderate); N18.3 - Chronic kidney disease, stage 3 ( moderate); Z79.4 - petroleum terminal plant operator (current) use of insulin; Z79.4 - long-term ( current) use of insulin; Z79.4 - long-term (current) use of insulin; Z79.4 - long-term (current) use of insulin (5) Hypokalemia Current Visit: Yes Status: Acute K+ 3.0 Recommend replacing UOP 4710ml yesterday--use caution with diuretics. History of Present Illness - Reason for Consult Consult date: 08/18/17 - Chief Complaint CHF, elevated troponin, RONI on CKD stage 3A - History of Present Illness Mr. Pitts is a 57 year old male with past medical history of coronary artery disease s/p stents, insulin-dependent diabetes, hypertension, anxiety, hyperlipidemia, chronic kidney disease stage IIIa and BPH. He presented to the ED with complaints of shortness of breath and was admitted for elevated troponins and CHF. Patient is on Lasix 40mg IV BID and had a CT with contrast on 08/16. Review of past records show he has a CKD of stage 3a that appears to have developed over the last year or so. GFR has dropped from a baseline of 54 to as low as 34 during this hospitalization; currently 36. Patient states he is aware of having come CKD but has never seen a administrative professional. His mother had some type of kidney disease which he said contributed to her . Patient occasionally takes NSAIDs. Past Med Surg Social Fam HX - Past Medical History Medical history: coronary artery disease, diabetes, hyperlipidemia, hypertension , myocardial infarction Psychiatric history: anxiety, depression - Past Surgical History Surgical History: angioplasty/stent - Social History Smoking Status: Former smoker Smokeless Tobacco Status: No Alcohol use: none - Family History Father Hx Family Cardiac Disorders: Yes Mother Hx Family Endocrine Disorder: Yes (Diabetes) Medications and Allergies Allopurinol [Zyloprim 300 MG] 300 mg PO DAILY 08/16/17 [History] Amlodipine Besylate 10 mg PO DAILY 08/16/17 [History] Aspirin [Lo-Dose Aspirin EC] 81 mg PO DAILY 08/16/17 [History] Carvedilol [Coreg] 6.25 mg PO BID 08/16/17 [History] Cholecalciferol (D-3) [Vitamin D] 5,000 unit PO DAILY 08/16/17 [History] Escitalopram [Lexapro] 20 mg PO DAILY 08/16/17 [History] Fenofibrate Nanocrystallized [Tricor] 145 mg PO DAILY 08/16/17 [History] Finasteride [Proscar] 5 mg PO DAILY 08/16/17 [History] Insulin ASPART [Novolog] 5 - 15 unit SQ TIDWM 08/16/17 [History] Insulin DETEMIR [Levemir Flextouch] 40 unit SQ HS 08/16/17 [History] Insulin DETEMIR [Levemir Flextouch] 50 unit SQ QAM 08/16/17 [History] Losartan Potassium [Cozaar] 100 mg PO DAILY 08/16/17 [History] Metoprolol [Lopressor] 100 mg PO BID 08/16/17 [History] Rosuvastatin [Crestor] 40 mg PO DAILY 08/16/17 [History] Tamsulosin [Flomax] 0.4 mg PO DAILY 08/16/17 [History] cloNIDine HCl [CloNIDine HCl] 0.1 mg PO DAILY 08/16/17 [History] clonazePAM [Klonopin] 0.5 mg PO BID 08/16/17 [History] glipiZIDE [Glucotrol] 5 mg PO BID 08/16/17 [History] metFORMIN [Glucophage] 500 mg PO BID 08/16/17 [History] 3 Allergy/AdvReac Type Severity Reaction Status Date / Time No Known Allergies Allergy Verified 01/05/17 18:47 Review of Systems All Systems: reviewed and no additional remarkable complaints except as stated Constitutional: malaise, no fever(s) Cardiovascular: chest pain, dyspnea, dyspnea on exertion, leg edema Respiratory: cough, dyspnea, dyspnea on exertion Gastrointestinal: no vomiting Neurological: no behavioral changes Exam - Vital Signs Vital signs: Initial Vital Signs Temp Pulse Resp BP Pulse Ox 98.2 F 80 22 201/123 95 08/16/17 12:49 08/16/17 12:49 08/16/17 12:49 08/16/17 12:49 08/16/17 12:49 Vital Signs - Last 8 Hours Temp Pulse Resp BP Pulse Ox 08/18/17 07:27 18 93 08/18/17 07:23 98.4 F 81 18 153/99 92 08/18/17 04:03 20 96 08/18/17 03:35 98.5 F 75 18 160/83 94 Intake and Output 08/17/17 08/18/17 08/18/17 23:59 07:59 15:59 Intake Total 650 / 650 Output Total 1625 / 1625 Balance -975 / -975 Intake: IV Fluids 250 / 250 Zithromax 500 mg In Dextrose 5% 250 / 250 250 ML @ 252 mls/hr IVPB Q24H [facility] Rx#:[id number] Oral 400 / 400 Output: Urine 1625 / 1625 Other: Weight 117.6 kg Blood Glucose* 204 135 Patient Weight 08/18/17 23:59 Weight 117.6 kg - General Appearance General appearance: well-developed, well-nourished, obese EENT: ATNC, mucous membranes moist, hearing intact, vision intact Neck: supple Respiratory: clear Cardiology: edema (mild BLL edema, improved), normal S1, normal S2 Gastrointestinal: no tenderness, no guarding, obese Integumentary: warm and dry Neurologic: alert and oriented x3 Psychiatric: mood/affect appropriate, cooperative Results - Lab Results 08/18/17 06:51 08/18/17 06:51 Most recent lab results Calcium 8.9 mg/dL (8.6-10.8) 08/18/17 06:51 Phosphorus 2.9 mg/dL (2.3-4.7) 08/16/17 15:43 Magnesium 1.9 mg/dL (1.6-2.6) 08/17/17 02:47 Consult Discharge Plan - Plan Referrals: Araceli Massey CNP [Advanced Practice Nurse] - 08/26/17 12:30 pm Brooklyn Kirkpatrick CNP [Advanced Practice Nurse] - (office will call patient at home with follow up appointment)
--- NOTE | 2017-08-18 09:50 | Cardiology Progress Note ---
<Juancho Bustillos - Last Filed: 08/18/17 11:29> Date of Encounter: 08/18/17 Time of Encounter: 09:46 Assessment and Plan (1) Elevated troponin Current Visit: Yes Status: Acute Most likely Demand Ischemia 2/2 acute exacerbation of CHF/RONI on CKD vs ACS. no chest pain, but patient has been diaphoretic. Patient has previous hx of 2 stent placements in 1999. Patient has not had follow up with government relations analyst. EKG : new Left bundle branch block. trops 0.12, 0.13, 0.16, 0.15, 0.09, and BNP 823. Echo EF 50%, normal wall motion, atypical septal motion possibly due to bundle branch block. Urine Output in last 24 hours 3.4L, cum output 6.3L. Patient is clinically improving. - Patient is fluid overloaded. outpatient stress test follow up. Will sign off for now. (2) CHF (congestive heart failure) Current Visit: Yes Status: Acute Most likely patient is fluid overloaded vs less likely new HFpEF. patient has PND, orthopnea, dyspnea on exertion, and leg edema. Risks include uncontrolled BP, HLD, DM, hx of smoking. CXR - pulmonary edema BNP 823, and trop 0.12, 0.13 , 0.16, 0.15, 0.09. echo 50% Qualifiers: Congestive heart failure type: unspecified congestive heart failure type Congestive heart failure chronicity: acute Qualified Code(s): I50.9 - Heart failure, unspecified (3) CAD (coronary artery disease) Current Visit: Yes Status: Acute Previous 2 stents for MA. Qualifiers: Coronary Disease-Associated Artery/Lesion type: [place] artery [place] vs. transplanted heart: [place] heart Associated angina: without angina Qualified Code(s): I25.10 - Atherosclerotic heart disease of [place] coronary artery without angina pectoris (4) Hypertension Current Visit: Yes Status: Acute Patient reports blood pressure has risen in the last week. home rx: metoprolol 100 BID, clonidine 0.1, losartan 100 PO, and coreg 6.25 BID. - patient BP remains elevated ~150-170/~83-110 - D/C labetalol - increased dose of Lopressor to 200 BID - further management per medicine team. will sign off for now Qualifiers: Hypertension type: essential hypertension Qualified Code(s): I10 - Essential (primary) hypertension Discussion w patient/family: The assessment and plan as outlined above was discussed with the patient and/or family members who expressed understanding and agreement. All questions were answered. Thank you for involving us in the care of your patient. Please call with any questions. Subjective Principal diagnosis: new CHF/elevated Trops Interval history: Mr. Pitts is a 57 year old male w/ hx of CAD w/ 2 stents in the early , HTN, HLD, T2DM, CKD3 presented w/ trouble breathing. Cardiology was consulted for elevated trops and new CHF. No events over night. Patient reports symptoms of difficult breathing are improving. He has been urinating. Objective Vital Signs, Last 4 Hours Temp Pulse Resp BP Pulse Ox 08/18/17 07:27 18 93 08/18/17 07:23 98.4 F 81 18 153/99 92 General: Conversant, No Apparent Distress HEENT: Atraumatic, Normocephaly, Mucus Membranes Moist Neck: No JVD, Normal carotid pulses Cardiac: Reg Rate and Rhythm, Normal S1 and S2, No Murmur Lungs: Normal Breath Sounds, No Wheeze, Rales, Rhonchi Neuro: Alert and responsive, No focal deficits noted Abdomen: Soft, Non-Tender Skin: No rashes noted on visualized skin Musculoskeletal: No Chest Wall Tenderness Extremities: No Clubbing, No Cyanosis, Normal Pulses, Other (1/4 BLE pitting edema) Results 08/18/17 06:51 08/18/17 06:51 Lab Results 08/17/17 08/17/17 08/18/17 10:20 10:20 06:51 WBC 8.1 Hgb 12.2 L Hct 35.8 L Plt Count 257 INR APTT 49.8 H Sodium Potassium Chloride Carbon Dioxide BUN Creatinine Glucose Calcium Troponin I 0.09 H* 08/18/17 08/18/17 06:51 06:51 WBC Hgb Hct Plt Count INR 1.2 APTT Sodium 143 Potassium 3.0 L Chloride 105 Carbon Dioxide 28 BUN 21 Creatinine 1.92 H Glucose 140 H Calcium 8.9 Troponin I - VTE Documentation of Mechanical Device: Graduated compression elastic hosiery Consult Discharge Plan - Plan Referrals: Araceli Massey CNP [Advanced Practice Nurse] - 08/26/17 12:30 pm Casimiro,Brooklyn J, [employer] [Advanced Practice Nurse] - (office will call patient at home with follow up appointment) <Belinda Kovacs - Last Filed: 08/18/17 18:47> Date of Encounter: 08/18/17 Assessment and Plan Discussion w patient/family: I examined this patient and my medical decision-making was reviewed with the Resident Physician. I agree with the documented findings, disposition and treatment plan. Mr. Pitts has diuresed and is now that -5 L. He is feeling better today. Nephrology has been consulted and made recommendations. PLAN: 1. Elevated troponin: Suspect demand ischemia secondary to diastolic dysfunction and acute renal failure. LV systolic function remains in the normal range. However, given patient's history of remote PCI, we did discuss consideration for an invasive approach. Given acute renal dysfunction, the patient is aware that proceeding with LHC at this time could contribute to worsening renal function. I also recommended considering optimizing his current status and having him follow up as an outpatient to consider stress testing. The patient declines proceeding with left heart catheterization. He would like to follow up as an outpatient. Continue aspirin and statin. 2. CHF: Appears to be diastolic dysfunction in the setting of acute renal failure. Recommend diuresis management per nephrology. 3. Hypertension: Recommend continuing the increased dose of metoprolol, 150 mg twice daily. We will add on Imdur 30 mg daily and hydralazine IV as needed. We will sign off for now. Please call with questions. Recommend outpatient cardiology follow-up. Objective Vital Signs, Last 4 Hours Temp Pulse Resp BP Pulse Ox 08/18/17 16:37 98.2 F 72 18 134/80 92 Results 08/18/17 06:51 08/18/17 06:51 Lab Results 08/18/17 08/18/17 08/18/17 06:51 06:51 06:51 WBC 8.1 Hgb 12.2 L Hct 35.8 L Plt Count 257 INR 1.2 Sodium 143 Potassium 3.0 L Chloride 105 Carbon Dioxide 28 BUN 21 Creatinine 1.92 H Glucose 140 H Calcium 8.9
[2017-08-18 09:51] LABS: Uric Acid 6.9 mg/dL (3.5-7.2)
[2017-08-18] MEDS ORDERED: Potassium Chloride Elixir 20 MEQ/15 ML UDC PO ONE (11:27)
[2017-08-18] MEDS ORDERED: Metoprolol 100 MG TABLET PO SCH (11:30)
--- NOTE | 2017-08-18 11:56 | Internal Med Progress Note ---
Date of Encounter: 08/18/17 Time of Encounter: 11:54 - Assessment and plan (1) Pneumonia Current Visit: Yes Status: Acute Assessment and plan: CT angiogram of chest shows bibasal infiltrates along with bilateral pleural effusion. Continue IV antibiotics-Rocephin and azithromycin for possible pneumonia. Continues to require supplemental oxygen via nasal cannula at 2 L/ m. Supportive care. Blood cultures, sputum culture, urine for Legionella and strep pneumoniae antigen remain negative. Qualifiers: Pneumonia type: due to unspecified organism Laterality: bilateral Lung location: lower lobe of lung Qualified Code(s): J18.9 - Pneumonia, unspecified organism (2) CHF (congestive heart failure) Current Visit: Yes Status: Acute Assessment and plan: Patient presents with dyspnea, orthopnea, pedal edema, elevated BNP. Echocardiogram shows ejection fraction 50%, mild concentric left ventricular hypertrophy, moderate left-ventricular diastolic dysfunction, mild mitral regurgitation, atypical septal motion consistent with bundle branch block. Continue diuresis with IV Lasix, urine output monitoring, start fluid restriction. Noted to have at least 5 L net negative fluid balance. Cardiology consult and follow-up appreciated, currently signed off. Continue beta romie, Imdur; Telemetry monitoring; patient had mild Troponin leak, peak at 0.16, likely demand ischemia, no further testing at this time, recommend outpatient stress testing. Qualifiers: Congestive heart failure type: unspecified congestive heart failure type Congestive heart failure chronicity: acute Qualified Code(s): I50.9 - Heart failure, unspecified (3) RONI (acute kidney injury) Current Visit: Yes Status: Acute Assessment and plan: serum creatinine noted to be improving, 19 today, Baseline noted to be around 1.3 in January 2017. nephrology on board. Follow-up renal ultrasound. (4) Elevated troponin Current Visit: Yes Status: Resolved (5) CAD (coronary artery disease) Current Visit: Yes Status: Chronic Assessment and plan: continue ASA, statin, beta romie; Telemetry monitoring; Qualifiers: Coronary Disease-Associated Artery/Lesion type: [place] artery [place] vs. transplanted heart: [place] heart Associated angina: without angina Qualified Code(s): I25.10 - Atherosclerotic heart disease of [place] coronary artery without angina pectoris (6) Hypertension Current Visit: Yes Status: Chronic Assessment and plan: BP noted to be fairly controlled; continue Norvasc, Metoprolol, Imdur; on IV Labetalol PRN for appropriate BP control; off Nitroglycerine drip; Qualifiers: Hypertension type: essential hypertension Qualified Code(s): I10 - Essential (primary) hypertension (7) Diabetes mellitus Current Visit: Yes Status: Chronic Assessment and plan: continue Accucheck blood glucose monitoring with sliding scale insulin; start basal insulin at home dose; blood sugars noted to be elevated; diabetic diet; Qualifiers: Diabetes mellitus type: type 2 Diabetes mellitus complication status: with kidney complications Diabetes mellitus complication detail: with chronic kidney disease Diabetes mellitus rn long term care insulin use: with rn long term care use Chronic kidney disease stage: stage 3 (moderate) Qualified Code(s): E11.22 - Type 2 diabetes mellitus with diabetic chronic kidney disease; N18.3 - Chronic kidney disease, stage 3 (moderate); N18.3 - Chronic kidney disease, stage 3 ( moderate); Z79.4 - correction (current) use of insulin; Z79.4 - correction ( current) use of insulin; Z79.4 - correction (current) use of insulin; Z79.4 - continuous churn buttermaker (current) use of insulin (8) Anxiety and depression Current Visit: Yes Status: Chronic (9) Chronic kidney disease Current Visit: Yes Status: Chronic Qualifiers: Chronic kidney disease stage: stage 3 (moderate) Qualified Code(s): N18.3 - Chronic kidney disease, stage 3 (moderate) (10) Hypokalemia Current Visit: Yes Status: Acute Assessment and plan: supplement with PO potassium chloride; monitor K and Mg closely due to diuretic use; - Subjective Interval history: Feels better; continues to have leg swelling and facial puffiness; no cough, fever, and has some exertional dyspnea; good urine output with IV Lasix; continues to require supplemental O2 via NC; - Constitutional Vitals: Temp Pulse Resp BP Pulse Ox 98.4 F 71 18 155/87 95 08/18/17 11:18 08/18/17 11:18 08/18/17 11:18 08/18/17 11:18 08/18/17 11:18 General appearance: Present: A&O X 3, morbidly obese, answers questions appropriately - Respiratory Respiratory exam: Present: CTAB. Absent: accessory muscle use, rales, rhonchi, wheezes - Cardiovascular Cardiovascular exam: Present: RRR, +S1, +S2. Absent: diastolic murmur, gallop, rubs, systolic murmur - GI/Abdominal GI/Abdominal exam: Present: normal bowel sounds, soft, no peritoneal signs. Absent: distended, tenderness - Extremities Exam Extremities exam: Present: pedal edema (2+ pedal edema B/L upto knees), warm, radial pulses palpable and symmetrical. Absent: calf tenderness, cyanotic - Neurological Exam Neurological exam: Present: CN II-XII intact, oriented X3, no focal deficits. Absent: pronater drift, facial droop, speech deficit - Skin Skin exam: Present: dry, intact Internal Medicine: Result - Labs CBC & Chem 7: 08/18/17 06:51 08/18/17 06:51 Labs: Short CBC 08/18/17 Range/Units 06:51 WBC 8.1 (4.3-11.1) K/mcL Hgb 12.2 L (12.9-16.9) g/dL Hct 35.8 L (37.5-50.1) % Plt Count 257 (140-400) K/mcL Neutrophils # 6.2 (1.6-8.9) K/mcL BMP 08/18/17 06:51 Sodium 143 Potassium 3.0 L Chloride 105 Carbon Dioxide 28 BUN 21 Creatinine 1.92 H Glucose 140 H Calcium 8.9 - ABG Interpretation ABG results: PT/INR, D-dimer PT 12.5 Seconds (9.4-12.1) H 08/18/17 06:51 D-Dimer 514 ng/mLFEU (0-500) H 08/16/17 13:20 - Impressions Impressions Echocardiogram 08/16/17 17:50 Impressions: LVEF 50%. Not all LV segments were well visualized, but overall function appears grossly normal. Mild concentric left ventricular hypertrophy. Atypical septal motion possibly due to a bundle branch block. Moderate left ventricular diastolic dysfunction. Right ventricular size not well visualized, but function appears grossly normal. Mild mitral regurgitation. No evidence of pulmonary hypertension identified. Left Ventricular Wall Motion: Rest Echo Findings All wall segments showed normal motion. Findings: Study Quality * Technically sub-optimal due to body habitus. ECG Findings * Sinus rhythm, possible bundle branch block. Left Ventricle * LVEF 50%. Not all LV segments were well visualized, but overall function appears grossly normal. * Normal LV chamber size. * Mild concentric left ventricular hypertrophy. * Atypical septal motion possibly due to a bundle branch block. * Moderate left ventricular diastolic dysfunction. Right Ventricle * Right ventricular size not well visualized, but function appears grossly normal. Left Atrium * Moderately dilated left atrium. Right Atrium * Mildly dilated right atrium. Interatrial Septum * Interatrial septum not well evaluated. Aortic Valve * Aortic valve not well visualized. * No aortic regurgitation. * No aortic stenosis. Mitral Valve * Normal mitral valve structure. * Mild mitral regurgitation. * No mitral stenosis. Tricuspid Valve * Normal tricuspid valve structure and function. * Trace tricuspid regurgitation. * No evidence of pulmonary hypertension identified. Pulmonic Valve * Pulmonic valve not well visualized. * No pulmonic regurgitation. Aorta * Normally sized aortic root. Pericardium * The pericardium appears normal. IVC * The IVC is not well evaluated. Pulmonary Artery * Pulmonary artery not well visualized. - VTE Documentation of Mechanical Device: Graduated compression elastic hosiery Consult Discharge Plan - Plan Referrals: Araceli Massey CNP [Advanced Practice Nurse] - 08/26/17 12:30 pm Brooklyn Kirkpatrick CNP [Advanced Practice Nurse] - (office will call patient at home with follow up appointment)
[2017-08-18] MEDS: clonazePAM 0.5 MG TABLET PO PRN (12:23)
[2017-08-18] MEDS: Isosorbide MONOnitrate (24 HR) 30 MG TAB.ER.24H PO SCH (12:38)
[2017-08-18] MEDS: Acetaminophen 325 MG TABLET PO PRN (14:47)
[2017-08-18 16:42] LABS: Protein/Creatinine Ratio,Urine 8.15 mg/mg (0-0.20)
[2017-08-18] MEDS: Azithromycin 500 MG in D5% in Water 250 ML IVPB SCH (17:16)
[2017-08-18] MEDS: *HR* OxyCODONE/APAP 5/325 TABLET PO PRN (17:32)
[2017-08-18] MEDS ORDERED: Acetaminophen/Butalbital/CaffeineTABLET PO ONE (20:34)
[2017-08-18] MEDS: Insulin DETEMIR 100 UNIT/ML X5UNITS SQ SCH (21:10)
[2017-08-19] MEDS: Ipratropium/Albuterol Neb 3 ML IH SCH ×6 (04:19→23:25)
[2017-08-19] MEDS: *HR* Heparin 5,000 UNIT/ML VIAL SQ SCH ×2 (05:06→17:17)
[2017-08-19 06:31] LABS: Albumin 2.6 g/dL (3.5-5.0); Calcium 9.3 mg/dL (8.6-10.8); Magnesium 1.7 mg/dL (1.6-2.6); Potassium 3.3 mEq/L (3.5-4.5)
[2017-08-19] MEDS: Insulin LISPRO 300 UNITS/3 ML VIAL SQ SCH ×4 (07:32→20:50)
[2017-08-19] MEDS: Furosemide 40 MG/4 ML VIAL IVP SCH (07:43)
[2017-08-19] MEDS: cefTRIAXone 1,000 MG in Water for inj. (sterile) 10 ML IVPB SCH (07:45)
[2017-08-19] MEDS: Aspirin Enteric Coated 81 MG Tablet PO SCH (07:45)
[2017-08-19] MEDS: Finasteride 5 MG TABLET PO SCH (07:45)
[2017-08-19] MEDS: amLODIPine 5 MG TABLET PO SCH (07:46)
[2017-08-19] MEDS: Metoprolol 100 MG TABLET PO SCH ×2 (07:46→20:50)
[2017-08-19] MEDS: Isosorbide MONOnitrate (24 HR) 30 MG TAB.ER.24H PO SCH (07:46)
[2017-08-19] MEDS: Cholecalciferol (D-3) 1,000 UNIT TABLET PO SCH (07:46)
[2017-08-19] MEDS: Fenofibrate 54 MG TABLET PO SCH (07:46)
[2017-08-19] MEDS: clonazePAM 0.5 MG TABLET PO PRN ×2 (07:53→20:55)
[2017-08-19] MEDS: Insulin DETEMIR 100 UNIT/ML X5UNITS SQ SCH ×2 (08:46→20:51)
[2017-08-19] MEDS: *HR* OxyCODONE/APAP 5/325 TABLET PO PRN (13:11)
--- NOTE | 2017-08-19 16:57 | Event Note ---
Date of Encounter: 08/19/17 Time of Encounter: 16:56 Nephrology Chart review Slightly improved renal function. Agree with switching lasix back to oral. Will recheck on him tomorrow. No new recommendations today. Thank you.
[2017-08-19] MEDS: Furosemide 40 MG TABLET PO SCH (17:17)
[2017-08-19] MEDS ORDERED: Potassium Chloride Elixir 20 MEQ/15 ML UDC PO ONE (17:19)
--- NOTE | 2017-08-19 17:23 | Internal Med Progress Note ---
Date of Encounter: 08/19/17 Time of Encounter: 14:50 - Assessment and plan (1) Pneumonia Current Visit: Yes Status: Acute Assessment and plan: CT angiogram of chest shows bibasal infiltrates along with bilateral pleural effusion. Continue IV antibiotics-Rocephin and azithromycin- day 4 for possible pneumonia. Does not require supplemental O2. Supportive care. Blood cultures, sputum culture, urine for Legionella and strep pneumoniae antigen remain negative. Qualifiers: Pneumonia type: due to unspecified organism Laterality: bilateral Lung location: lower lobe of lung Qualified Code(s): J18.9 - Pneumonia, unspecified organism (2) CHF (congestive heart failure) Current Visit: Yes Status: Acute Assessment and plan: Patient presents with dyspnea, orthopnea, pedal edema, elevated BNP. Echocardiogram shows ejection fraction 50%, mild concentric left ventricular hypertrophy, moderate left-ventricular diastolic dysfunction, mild mitral regurgitation, atypical septal motion consistent with bundle branch block. Continue diuresis, change to oral Lasix with IV Lasix, urine output monitoring, fluid restriction. Noted to have at least 6.3 L net negative fluid balance. Cardiology consult and follow-up appreciated, currently signed off. Continue beta romie, Imdur; Telemetry monitoring; patient had mild Troponin leak, peak at 0.16, likely demand ischemia, no further testing at this time, recommend outpatient stress testing. Qualifiers: Congestive heart failure type: unspecified congestive heart failure type Congestive heart failure chronicity: acute Qualified Code(s): I50.9 - Heart failure, unspecified (3) RONI (acute kidney injury) Current Visit: Yes Status: Acute Assessment and plan: serum creatinine noted to be stable, 2.1 today, Baseline noted to be around 1.3 in January 2017. nephrology on board. Renal ultrasound shows no acute abnormality /obstruction. (4) Elevated troponin Current Visit: Yes Status: Resolved (5) CAD (coronary artery disease) Current Visit: Yes Status: Chronic Assessment and plan: continue ASA, statin, beta romie; Telemetry monitoring; Qualifiers: Coronary Disease-Associated Artery/Lesion type: [place] artery [place] vs. transplanted heart: [place] heart Associated angina: without angina Qualified Code(s): I25.10 - Atherosclerotic heart disease of [place] coronary artery without angina pectoris (6) Hypertension Current Visit: Yes Status: Chronic Assessment and plan: BP noted to be better controlled; continue Norvasc, Metoprolol, Imdur; on IV Labetalol PRN for appropriate BP control; Qualifiers: Hypertension type: essential hypertension Qualified Code(s): I10 - Essential (primary) hypertension (7) Diabetes mellitus Current Visit: Yes Status: Chronic Assessment and plan: continue Accucheck blood glucose monitoring with sliding scale and basal insulin ; blood sugars noted to be better controlled today; diabetic diet; Qualifiers: Diabetes mellitus type: type 2 Diabetes mellitus complication status: with kidney complications Diabetes mellitus complication detail: with chronic kidney disease Diabetes mellitus detention insulin use: with truck terminal manager use Chronic kidney disease stage: stage 3 (moderate) Qualified Code(s): E11.22 - Type 2 diabetes mellitus with diabetic chronic kidney disease; N18.3 - Chronic kidney disease, stage 3 (moderate); N18.3 - Chronic kidney disease, stage 3 ( moderate); Z79.4 - USP (current) use of insulin; Z79.4 - USP ( current) use of insulin; Z79.4 - termite exterminator helper (current) use of insulin; Z79.4 - USP (current) use of insulin (8) Anxiety and depression Current Visit: Yes Status: Chronic (9) Chronic kidney disease Current Visit: Yes Status: Chronic Assessment and plan: Needs outpatient Nephrology f/up; continue to hold ARB for now; Urine PCR noted to be 8.1; Qualifiers: Chronic kidney disease stage: stage 3 (moderate) Qualified Code(s): N18.3 - Chronic kidney disease, stage 3 (moderate) (10) Hypokalemia Current Visit: Yes Status: Acute Assessment and plan: supplement with PO potassium chloride; monitor K and Mg closely due to diuretic use; - Subjective Interval history: Feels well. No new complaints. Able to ambulate independently. Not requiring supplemental oxygen. Minimal improvement in leg swelling and facial puffiness. Noted to have good urine output. No chest pain, dyspnea, palpitations. - Constitutional Vitals: Temp Pulse Resp BP Pulse Ox 98.0 F 81 20 142/84 100 08/19/17 16:20 08/19/17 16:20 08/19/17 16:20 08/19/17 16:20 08/19/17 16:20 General appearance: Present: A&O X 3, morbidly obese, answers questions appropriately - Respiratory Respiratory exam: Present: CTAB. Absent: accessory muscle use, rales, rhonchi, wheezes - Cardiovascular Cardiovascular exam: Present: RRR, +S1, +S2. Absent: diastolic murmur, gallop, rubs, systolic murmur - GI/Abdominal GI/Abdominal exam: Present: normal bowel sounds, soft (Obese), no peritoneal signs. Absent: distended, tenderness - Extremities Exam Extremities exam: Present: full ROM, pedal edema (2+ pedal edema bilaterally), warm, radial pulses palpable and symmetrical. Absent: calf tenderness, cyanotic - Neurological Exam Neurological exam: Present: CN II-XII intact, oriented X3, no focal deficits. Absent: pronater drift, facial droop, speech deficit Internal Medicine: Result - Labs CBC & Chem 7: 08/18/17 06:51 08/19/17 05:43 Labs: BMP 08/19/17 05:43 Sodium 143 Potassium 3.3 L Chloride 105 Carbon Dioxide 29 BUN 28 H Creatinine 2.11 H Glucose 105 H Calcium 9.3 Liver Function 08/19/17 Range/Units 05:43 Albumin 2.6 L (3.5-5.0) g/dL - ABG Interpretation ABG results: PT/INR, D-dimer PT 12.5 Seconds (9.4-12.1) H 08/18/17 06:51 D-Dimer 514 ng/mLFEU (0-500) H 08/16/17 13:20 - Impressions Impressions Retroperitoneum Ultrasound 08/18/17 17:30 IMPRESSION: Unremarkable ultrasound of the kidneys and urinary bladder. Fatty infiltration of the liver. D/ / Rickie Vogt MD / Rickie Vogt MD Interpreting Provider: Rickie Vogt MD - VTE Documentation of Mechanical Device: Graduated compression elastic hosiery Consult Discharge Plan - Plan Referrals: Araceli Massey CNP [Advanced Practice Nurse] - 08/26/17 12:30 pm Brooklyn Kirkpatrick CNP [Advanced Practice Nurse] - (office will call patient at home with follow up appointment)
[2017-08-19] MEDS ORDERED: Azithromycin 250 MG TABLET PO SCH (18:00)
[2017-08-20] MEDS: Ipratropium/Albuterol Neb 3 ML IH SCH ×3 (03:51→11:31)
[2017-08-20 04:28] LABS: Potassium 3.6 mEq/L (3.5-4.5)
[2017-08-20] MEDS: *HR* Heparin 5,000 UNIT/ML VIAL SQ SCH (05:36)
[2017-08-20] MEDS: Fenofibrate 54 MG TABLET PO SCH (07:41)
[2017-08-20] MEDS: Finasteride 5 MG TABLET PO SCH (07:42)
[2017-08-20] MEDS: Isosorbide MONOnitrate (24 HR) 30 MG TAB.ER.24H PO SCH (07:42)
[2017-08-20] MEDS: Furosemide 40 MG TABLET PO SCH (07:42)
[2017-08-20] MEDS: Metoprolol 100 MG TABLET PO SCH (07:42)
[2017-08-20] MEDS: amLODIPine 5 MG TABLET PO SCH (07:43)
[2017-08-20] MEDS: Aspirin Enteric Coated 81 MG Tablet PO SCH (07:44)
[2017-08-20] MEDS: cefTRIAXone 1,000 MG in Water for inj. (sterile) 10 ML IVPB SCH (07:44)
[2017-08-20] MEDS: clonazePAM 0.5 MG TABLET PO PRN (07:53)
[2017-08-20] MEDS: Insulin LISPRO 300 UNITS/3 ML VIAL SQ SCH (08:02)
[2017-08-20 08:09] LABS: Complement Component 3 205 mg/dL (88-201); Complement Component 4 49 mg/dL (10-40)
[2017-08-20 08:16] LABS: ANA IgG by ELISA NONE DETECTED (None Detected)
--- NOTE | 2017-08-20 08:58 | Nephrology Progress Note ---
Date of Encounter: 08/20/17 Time of Encounter: 08:53 - Assessment and Plan (1) RONI (acute kidney injury) Current Visit: Yes Status: Acute Kidney function stable-Scr 2.15 GFR 32 [place] UOP 3655 Renal ultrasound WNL Ok from a kidney standpoint to discharge home today with a BMP in one week and follow up in office with Dr Cabrera in 2-4 weeks. Recommend restarting Losartan (2) CKD (chronic kidney disease) stage 3, GFR 30-59 ml/min Current Visit: Yes Status: Acute Baseline GFR 54 See above (3) CHF (congestive heart failure) Current Visit: Yes Status: Acute per primary team Qualifiers: Congestive heart failure type: unspecified congestive heart failure type Congestive heart failure chronicity: acute Qualified Code(s): I50.9 - Heart failure, unspecified (4) Diabetes mellitus Current Visit: Yes Status: Chronic per primary team Qualifiers: Diabetes mellitus type: type 2 Diabetes mellitus complication status: with kidney complications Diabetes mellitus complication detail: with chronic kidney disease Diabetes mellitus terminal press operator insulin use: with terminal press operator use Chronic kidney disease stage: stage 3 (moderate) Qualified Code(s): E11.22 - Type 2 diabetes mellitus with diabetic chronic kidney disease; N18.3 - Chronic kidney disease, stage 3 (moderate); N18.3 - Chronic kidney disease, stage 3 ( moderate); Z79.4 - emt intermediate (current) use of insulin; Z79.4 - long-term ( current) use of insulin; Z79.4 - emt intermediate (current) use of insulin; Z79.4 - long-term (current) use of insulin (5) Hypokalemia Current Visit: Yes Status: Resolved Subjective Principal diagnosis: new CHF/elevated [place] Interval history: Patient seen and examined. States he is feeling well. Objective - Vital Signs Vital signs: Vital Signs Temp Pulse Resp BP Pulse Ox 08/20/17 07:30 97.7 F 78 12 192/116 96 08/20/17 04:51 167/93 08/20/17 04:06 98.7 F 75 16 191/116 08/19/17 23:35 98.6 F 78 17 169/105 93 08/19/17 21:21 79 08/19/17 20:00 97.8 F 79 18 150/85 92 08/19/17 19:36 16 93 08/19/17 16:20 98.0 F 81 20 142/84 100 08/19/17 15:18 82 08/19/17 11:57 16 90 08/19/17 11:45 76 08/19/17 11:35 98.3 F 73 20 133/85 95 08/19/17 09:26 125/69 Intake and Output 08/19/17 08/20/17 08/20/17 23:59 07:59 15:59 Intake Total 60 / 60 30 / 30 Output Total 275 / 275 625 / 625 Balance -215 / -215 -595 / -595 Intake: Oral 60 / 60 30 / 30 Output: Urine 275 / 275 625 / 625 Other: Weight 118.4 kg Blood Glucose* 169 87 Patient Weight 08/20/17 23:59 Weight 118.4 kg - General Appearance General appearance: Present: well-developed, well-nourished EENT: Present: ATNC, mucous membranes moist, hearing intact, vision intact Neck: Present: supple Respiratory: Present: clear Cardiology: Present: no edema, normal S1, normal S2 Gastrointestinal: Present: no tenderness, no guarding Integumentary: Present: warm and dry Neurologic: Present: alert and oriented x3 Psychiatric: Present: mood/affect appropriate, cooperative - Lab 08/18/17 06:51 08/20/17 03:59 Most recent lab results Calcium 10.0 mg/dL (8.6-10.8) 08/20/17 03:59 Phosphorus 2.9 mg/dL (2.3-4.7) 08/16/17 15:43 Magnesium 2.0 mg/dL (1.6-2.6) 08/20/17 03:59 Urine Creatinine 109 mg/dL 08/18/17 15:25 Urine Sodium 68.0 mEq/L 08/18/17 15:25 Urine Total Protein 888 mg/dL (1-14) H 08/18/17 15:25 - VTE Documentation of Mechanical Device: Graduated compression elastic hosiery Consult Discharge Plan - Plan Referrals: Araceli Massey CNP [Advanced Practice Nurse] - 08/26/17 12:30 pm Brooklyn Kirkpatrick CNP [Advanced Practice Nurse] - (office will call patient at home with follow up appointment)
[2017-08-20] MEDS: Acetaminophen 325 MG TABLET PO PRN (10:11)
[2017-08-20] MEDS: Cholecalciferol (D-3) 1,000 UNIT TABLET PO SCH (10:12)
[2017-08-20] MEDS: Insulin DETEMIR 100 UNIT/ML X5UNITS SQ SCH (10:12)
[2017-08-20 11:24] VITALS: BP 155/93
--- NOTE | 2017-08-20 11:43 | Discharge Summary ---
Date of Encounter: 08/20/17 Time of Encounter: 11:41 - Discharge Diagnosis (1) Pneumonia Priority: Primary Status: Suspected Qualifiers: Pneumonia type: due to unspecified organism Laterality: bilateral Lung location: lower lobe of lung Qualified Code(s): J18.9 - Pneumonia, unspecified organism (2) CHF (congestive heart failure) Priority: Primary Status: Acute Qualifiers: Congestive heart failure type: combined Congestive heart failure chronicity : acute Qualified Code(s): I50.41 - Acute combined systolic (congestive) and diastolic (congestive) heart failure (3) RONI (acute kidney injury) Priority: Primary Status: Resolved (4) Elevated troponin Priority: Primary Status: Resolved (5) CAD (coronary artery disease) Priority: Secondary Status: Chronic Qualifiers: Coronary Disease-Associated Artery/Lesion type: [place] artery [place] vs. transplanted heart: [place] heart Associated angina: without angina Qualified Code(s): I25.10 - Atherosclerotic heart disease of [place] coronary artery without angina pectoris (6) Hypertension Priority: Secondary Status: Chronic Qualifiers: Hypertension type: essential hypertension Qualified Code(s): I10 - Essential (primary) hypertension (7) Diabetes mellitus Priority: Secondary Status: Chronic Qualifiers: Diabetes mellitus type: type 2 Diabetes mellitus complication status: with kidney complications Diabetes mellitus complication detail: with chronic kidney disease Diabetes mellitus fdc insulin use: with terminal system operator use Chronic kidney disease stage: stage 3 (moderate) Qualified Code(s): E11.22 - Type 2 diabetes mellitus with diabetic chronic kidney disease; N18.3 - Chronic kidney disease, stage 3 (moderate); N18.3 - Chronic kidney disease, stage 3 ( moderate); Z79.4 - residential (current) use of insulin; Z79.4 - marine oil terminal superintendent ( current) use of insulin; Z79.4 - marine oil terminal superintendent (current) use of insulin; Z79.4 - marine oil terminal superintendent (current) use of insulin (8) Anxiety and depression Priority: Secondary Status: Chronic (9) Chronic kidney disease Priority: Secondary Status: Chronic Qualifiers: Chronic kidney disease stage: stage 3 (moderate) Qualified Code(s): N18.3 - Chronic kidney disease, stage 3 (moderate) (10) Hypokalemia Priority: Primary Status: Resolved - Discharge Medications Prescriptions: Azithromycin [Zithromax] 500 mg PO DAILY@1800 #4 tablet Cefdinir [Omnicef] 300 mg PO BID #4 capsule Furosemide [Lasix] 40 mg PO BIDDIURETIC #60 tablet Losartan [Cozaar] 25 mg PO DAILY #30 tablet Metoprolol [Lopressor] 200 mg PO BID #120 tablet Potassium Chloride 10 meq PO BIDWM #60 tab.er.prt Home Medications: Allopurinol [Zyloprim 300 MG] 300 mg PO DAILY 08/16/17 [History] Amlodipine Besylate 10 mg PO DAILY 08/16/17 [History] Aspirin [Lo-Dose Aspirin EC] 81 mg PO DAILY 08/16/17 [History] Cholecalciferol (D-3) [Vitamin D] 5,000 unit PO DAILY 08/16/17 [History] Escitalopram [Lexapro] 20 mg PO DAILY 08/16/17 [History] Fenofibrate Nanocrystallized [Tricor] 145 mg PO DAILY 08/16/17 [History] Finasteride [Proscar] 5 mg PO DAILY 08/16/17 [History] Insulin ASPART [Novolog] 5 - 15 unit SQ TIDWM 08/16/17 [History] Insulin DETEMIR [Levemir Flextouch] 40 unit SQ HS 08/16/17 [History] Insulin DETEMIR [Levemir Flextouch] 50 unit SQ QAM 08/16/17 [History] Rosuvastatin [Crestor] 40 mg PO DAILY 08/16/17 [History] Tamsulosin [Flomax] 0.4 mg PO DAILY 08/16/17 [History] clonazePAM [Klonopin] 0.5 mg PO BID 08/16/17 [History] Azithromycin [Zithromax] 500 mg PO DAILY@1800 #4 tablet 08/20/17 [Rx] Cefdinir [Omnicef] 300 mg PO BID #4 capsule 08/20/17 [Rx] Furosemide [Lasix] 40 mg PO BIDDIURETIC #60 tablet 08/20/17 [Rx] Losartan [Cozaar] 25 mg PO DAILY #30 tablet 08/20/17 [Rx] Metoprolol [Lopressor] 200 mg PO BID #120 tablet 08/20/17 [Rx] Potassium Chloride 10 meq PO BIDWM #60 tab.er.prt 08/20/17 [Rx] Allergies/Adverse Reactions: 3 Allergy/AdvReac Type Severity Reaction Status Date / Time No Known Allergies Allergy Verified 04/03/17 18:47 Procedures/tests Complete & Pending: Procedures Performed prior 72 hours Category Date Time Status Retroperitoneal Ultrasound - Complete [US Exams 08/18/17 17:30 Completed retroperitoneal comp] [US] Stat Date of admission: 08/16/17 17:43 Primary care physician: Getachew Judd DO Consults: 08/16/17 17:52 Consult to Cardiology [CONS] Routine Comment: Consulting Provider: Cardiology Nieves Reason for Consult: elevated troponin Call Completed: No 08/17/17 15:04 Consult to Nephrology [CONS] Routine Consulting Provider: Kidney Nieves/NEETA/SONALI/KRIS Reason for Consult: RONI Call Completed: Yes Discharging clinician: Sia Vincent Anticipated date of discharge: 08/20/17 - Patient Status Disposition: Home, Self-Care Condition: Fair Functional capacity at discharge: independent ambulation Overall status at discharge: patient is progressing back to baseline - Discharge Instructions Instructions: Metoprolol (By mouth), Furosemide (By mouth), Potassium Chloride (By mouth), Azithromycin (By mouth), Losartan (By mouth), Cefdinir (By mouth) Follow Up With: Araceli Massey CNP [Advanced Practice Nurse] - 08/26/17 12:30 pm Brooklyn Kirkpatrick CNP [Advanced Practice Nurse] - (office will call patient at home with follow up appointment) Additional Instructions: F/up with [facility] as scheduled F/up with in 3-4 weeks - Diet and Activity Activity: resume usual activities as tolerated Diet: diabetic diet, low fat, low cholesterol, low salt diet, other (renal diet , fluid restriction to 1.5L/day) Hospital course: Mr. Pitts is a 57 year old male with the above medical problems who was admitted with worsening shortness of breath. CT angiogram of chest done in the emergency room showed bibasal infiltrates along with bilateral pleural effusions. Patient was started on broad-spectrum IV antibiotics. Blood, urine and sputum cultures remained negative; urine Legionella and Strep pneumo Ag negative. Patient was also noted to have mild troponin elevation. Echocardiogram shows ejection fraction 50%, mild concentric left ventricular hypertrophy, moderate left-ventricular diastolic dysfunction, mild mitral regurgitation, atypical septal motion consistent with bundle branch block. Cardiology was consulted, recommended outpatient stress testing and to continue with IV diuresis to maintain euvolemic status. He was noted to have uncontrolled hypertension and his blood pressure medications were up titrated to achieve target blood pressure. Nephrology was consulted who followed the patient for acute on chronic renal failure. Patient was noted to have appropriate urine output and at least 6.3 L of net negative fluid balance during this hospitalization and seems to be doing much better currently. He is saturating well on room air and ambulating independently. Patient was instructed about cardiac diet, fluid restriction and medication compliance after discharge and he verbalized understanding. He Is currently medically stable for discharge with outpatient cardiology and nephrology follow-up. - Time Spent with Patient Total time spent providing and/or coordinating discharge services: Greater than 30 minutes (45 min) - Constitutional Vitals: Temp Pulse Resp BP Pulse Ox 97.5 F L 69 16 155/93 94 08/20/17 11:20 08/20/17 11:20 08/20/17 11:31 08/20/17 11:20 08/20/17 11:31 General appearance: Present: A&O X 3, morbidly obese, answers questions appropriately - Respiratory Respiratory exam: Present: CTAB. Absent: accessory muscle use, rales, rhonchi, wheezes - Cardiovascular Cardiovascular exam: Present: RRR, +S1, +S2. Absent: diastolic murmur, gallop, rubs, systolic murmur - VTE Documentation of Mechanical Device: Graduated compression elastic hosiery
[2017-08-20] MEDS ORDERED: Metoprolol 100 MG TABLET PO SCH (21:00)
[2017-08-22 03:36] LABS: Urine Collection Duration RANDOM hr; Urine Collection Volume RANDOM mL
== END 2017-08-20 14:05 | disposition home or self-care (01) | DRG 291 ==
LOC: EMEROO 12:46 → 2NNU 12:46 → SUATTDRO 17:43
PROVIDERS: ADMIT Internal Medicine; ATTEND Internal Medicine

== ENCOUNTER 2018-01-27 10:58 | Inpatient (IN) ==
[2018-01-27] MEDS ORDERED: Aspirin 81 MG TAB.CHEW PO STA (11:16)
--- NOTE | 2018-01-27 11:18 | Emergency Department Note ---
Disposition Clinical Impression: NSTEMI (non-ST elevated myocardial infarction), CKD (chronic kidney disease) stage 3, GFR 30-59 ml/min Disposition: Admitted As Inpatient Condition: Good General Adult HPI - General Chief complaint: ED Chest Pain Stated complaint: Chest Pain Time Seen by Provider: 01/27/18 11:03 Nursing Notes Reviewed: Yes Vital Signs Reviewed: Yes - History of Present Illness Pain Scale: 1 - Related Data Home Medications Medication Instructions Recorded Confirmed Allopurinol [Zyloprim 300 MG] 300 mg PO DAILY 08/16/17 01/27/18 Amlodipine Besylate 10 mg PO DAILY 08/16/17 01/27/18 Aspirin [Lo-Dose Aspirin EC] 81 mg PO DAILY 08/16/17 01/27/18 Cholecalciferol (D-3) [Vitamin D] 5,000 unit PO DAILY 08/16/17 01/27/18 Escitalopram [Lexapro] 20 mg PO DAILY 08/16/17 01/27/18 Fenofibrate Nanocrystallized 145 mg PO DAILY 08/16/17 01/27/18 [Tricor] Finasteride [Proscar] 5 mg PO DAILY 08/16/17 01/27/18 Insulin ASPART [Novolog] 5 - 15 unit SQ TIDWM 08/16/17 01/27/18 Insulin DETEMIR [Levemir Flextouch] 40 unit SQ HS 08/16/17 01/27/18 Insulin DETEMIR [Levemir Flextouch] 50 unit SQ QAM 08/16/17 01/27/18 Tamsulosin [Flomax] 0.4 mg PO DAILY 08/16/17 01/27/18 clonazePAM [Klonopin] 0.5 mg PO BID 08/16/17 01/27/18 Furosemide [Lasix] 40 mg PO BID 01/27/18 01/27/18 Losartan Potassium [Cozaar] 50 mg PO DAILY 01/27/18 01/27/18 Lovastatin 40 mg PO QPM 01/27/18 01/27/18 Metoprolol Succinate 200 mg PO DAILY 01/27/18 01/27/18 Previous Rx's Medication Instructions Recorded Potassium Chloride 10 meq PO BIDWM #60 tab.er.prt 08/20/17 Allergies Allergy/AdvReac Type Severity Reaction Status Date / Time No Known Allergies Allergy Verified 01/05/17 18:47 Past Medical History - Past Medical History Medical history: Reports: coronary artery disease, diabetes, hyperlipidemia, hypertension, myocardial infarction Surgical history: Reports: angioplasty/stent Psychiatric history: Reports: anxiety, depression - Social History Smoking Status: Former smoker Smokeless Tobacco Status: No Alcohol use: Reports: none Course Vital Signs Temperature 97.6 F 01/27/18 11:00 Pulse Rate 76 01/27/18 11:00 Respiratory Rate 16 01/27/18 11:00 Blood Pressure 193/114 01/27/18 11:00 O2 Sat by Pulse Oximetry 97 01/27/18 11:00 Temperature 97.6 F 01/27/18 11:17 Pulse Rate 65 01/27/18 13:17 Respiratory Rate 14 01/27/18 13:17 Blood Pressure 154/103 01/27/18 13:17 O2 Sat by Pulse Oximetry 96 01/27/18 13:17 Oxygen Delivery Oxygen Delivery Room Air Medical Decision Making - MDM Narrative Medical decision making narrative: This documentation is done with the assistance of Dragon dictation. Despite efforts made to ensure accuracy, there may be inaccuracies in hand cigar making supervisor or spelling and typographical errors. Patient had chest pain that awoke him this morning early around 6 or 7. It was relieved around 10 then went away on its own he did take aspirin. He has had chest pain the past of his medications but no nitroglycerin. No is chest pain- free. Denies any fevers chills cough shortness of breath or ankle pain. Patient's negative cardiac workup and most likely will need admission. He is in agreement with this plan. Chest X-Ray 01/27/18 11:03 IMPRESSION: No acute process. D/ / Omid Armendariz MD / Omid Armendariz MD Interpreting Provider: Omid Armendariz MD 1135 hours: Chest x-rays unremarkable waiting on troponin. 1220 hrs.: Lab called troponin is elevated > 1.0. Patient's pain-free. We will be repeating EKG and then bring him into the hospital. 1250 hrs.: Patient's creatinines elevated also which has been in the past. We will go ahead and start him on heparin; we spoke to cardiology. They will follow him along with admission to hospitalist. Patient's pain-free. Repeat EKG shows no acute changes. Repeat EKG done at 1230 hrs. shows sinus rhythm, left ventricular hypertrophy by voltage criteria QRS is 99 QTc is 410 no signs of acute ischemia compared with her old EKG that was done earlier today in the department shows no changes except for rate. - Lab Data Result diagrams: 01/27/18 11:34 01/27/18 11:34 Lab Results 01/27/18 01/27/18 01/27/18 Range/Units 11:26 11:34 11:34 WBC 9.2 (4.3-11.1) K/mcL RBC 4.30 (4.19-5.50) M/mcL Hgb 13.5 (12.9-16.9) g/dL Hct 38.6 (37.5-50.1) % MCV 89.8 (83.0-100.0) fL MCH 31.4 (28.0-33.3) pg MCHC 35.0 (31.6-35.5) g/dL RDW 13.7 (11.5-14.5) % Plt Count 229 (140-400) K/mcL MPV 10.5 (9.4-12.4) fL Immature Gran % 3.1 (0-4) % Seg Neutrophils % 81.7 % Lymphocytes % 9.3 % Monocytes % 4.1 % Eosinophils % 1.0 % Basophils % 0.8 % Neutrophils # 7.5 (1.6-8.9) K/mcL Lymphocytes # 0.9 (0.6-4.6) K/mcL Monocytes # 0.4 (0.0-1.3) K/mcL Eosinophils # 0.1 (0.0-0.6) K/mcL Basophils # 0.1 (0.0-0.2) K/mcL Sodium 137 (136-145) mEq/L Potassium 3.8 (3.5-5.1) mEq/L Chloride 100 (98-107) mEq/L Carbon Dioxide 23 (23-29) mEq/L BUN 37 H (6-20) mg/dL Creatinine 2.21 H (0.70-1.30) mg/dL Est GFR ( Amer) 37 L (> 60) Est GFR (Non-Af Amer) 31 L (> 60) BUN/Creatinine Ratio 17 (6-26) Glucose 299 H (70-105) mg/dL POC Glucose 268 H (70-99) mg/dL Calculated Osmolality 304 H (280-300) Calcium 9.3 (8.6-10.3) mg/dL Troponin I 1.39 H* (< 0.04) ng/mL Critical Care Time Critical Care Time: Yes Total Critical Care Time: 30 Attestation: Excluding any separately billable procedures Attestation Statement - Attestation Attestation: I examined this patient and my medical decision-making was reviewed with the Resident Physician. I agree with the documented findings, disposition and treatment plan as described except to the extent set forth below. Patient seen and evaluated on arrival by Dr. Narvaez and myself, I agree with her evaluation and management plan, supervised the care of the patient's stay.
--- NOTE | 2018-01-27 11:19 | Emergency Department Note ---
Disposition Clinical Impression: NSTEMI (non-ST elevated myocardial infarction), CKD (chronic kidney disease) stage 3, GFR 30-59 ml/min Disposition: Admitted As Inpatient Condition: Good Referrals: Getachew Judd DO [Primary Care Provider] - Forms: ED Satisfaction Letter Time of Disposition: 13:13 Chest Pain HPI - General Chief Complaint: ED Chest Pain Stated Complaint: Chest Pain Time Seen by Provider: 01/27/18 11:03 Vital Signs Reviewed: Yes Nursing Notes Reviewed: Yes - History of Present Illness HPI Narrative: Chest pain began this morning after he woke up. Attributed it to a muscle pull however did not relieve. His blood pressure medication. States it did relieve around 10:00. States the pain is gone at this time. No associated shortness of breath but does have chronic cough. Severity scale (1-10): 1 - Related Data Home Medications Medication Instructions Recorded Confirmed Allopurinol [Zyloprim 300 MG] 300 mg PO DAILY 08/16/17 08/16/17 Amlodipine Besylate 10 mg PO DAILY 08/16/17 08/16/17 Aspirin [Lo-Dose Aspirin EC] 81 mg PO DAILY 08/16/17 08/16/17 Cholecalciferol (D-3) [Vitamin D] 5,000 unit PO DAILY 08/16/17 08/16/17 Escitalopram [Lexapro] 20 mg PO DAILY 08/16/17 08/16/17 Fenofibrate Nanocrystallized 145 mg PO DAILY 08/16/17 08/16/17 [Tricor] Finasteride [Proscar] 5 mg PO DAILY 08/16/17 08/16/17 Insulin ASPART [Novolog] 5 - 15 unit SQ TIDWM 08/16/17 08/16/17 Insulin DETEMIR [Levemir Flextouch] 40 unit SQ HS 08/16/17 08/16/17 Insulin DETEMIR [Levemir Flextouch] 50 unit SQ QAM 08/16/17 08/16/17 Rosuvastatin [Crestor] 40 mg PO DAILY 08/16/17 08/16/17 Tamsulosin [Flomax] 0.4 mg PO DAILY 08/16/17 08/16/17 clonazePAM [Klonopin] 0.5 mg PO BID 08/16/17 08/16/17 Previous Rx's Medication Instructions Recorded Azithromycin [Zithromax] 500 mg PO DAILY@1800 #4 tablet 08/20/17 Cefdinir [Omnicef] 300 mg PO BID #4 capsule 08/20/17 Furosemide [Lasix] 40 mg PO BIDDIURETIC #60 tablet 08/20/17 Losartan [Cozaar] 25 mg PO DAILY #30 tablet 08/20/17 Metoprolol [Lopressor] 200 mg PO BID #120 tablet 08/20/17 Potassium Chloride 10 meq PO BIDWM #60 tab.er.prt 08/20/17 Allergies Allergy/AdvReac Type Severity Reaction Status Date / Time No Known Allergies Allergy Verified 01/05/17 18:47 All systems ED: reviewed and negative except as stated. Constitutional: Denies: fever, chills ENT ED: Denies: congestion Cardiovascular: Reports: chest pain (Earlier today. Resolved at this time.). Denies: palpitations, syncope Respiratory: Reports: cough (Chronic). Denies: dyspnea Gastrointestinal: Denies: abdominal pain, nausea, vomiting, diarrhea Musculoskeletal: Denies: back pain, neck pain Neurological: Denies: headache, weakness Chest Pain PMH - Past Medical History Medical history: Reports: coronary artery disease, diabetes, hyperlipidemia, hypertension, myocardial infarction Surgical history: Reports: angioplasty/stent Psychiatric history: Reports: anxiety, depression - Social History Smoking Status: Former smoker Alcohol use: Reports: none Physical Exam - General Limitations: no limitations General appearance: alert, in no apparent distress - Head Head exam: atraumatic, normocephalic, normal inspection - Eye Eye exam: Present: normal appearance, PERRL, EOMI. Absent: scleral icterus - ENT ENT exam: normal exam, normal oropharynx - Neck Neck exam: Present: normal inspection, full ROM, trachea midline - Chest Chest inspection: Present: normal inspection, symmetric chest wall rise - Respiratory Respiratory exam: Present: normal lung sounds bilaterally. Absent: respiratory distress - Cardiovascular Cardiovascular exam: Present: regular rate, normal rhythm, normal heart sounds - Abdominal Exam Abdominal exam: Present: soft, distention. Absent: tenderness, guarding, rigidity, organomegaly - Extremities Exam Extremities exam: Present: normal inspection, full ROM. Absent: tenderness, pedal edema - Back Exam Back exam: Present: normal inspection, full ROM. Absent: tenderness - Neurological Exam Neurological exam: Present: alert, oriented X3 - Psychiatric Psychiatric exam: Present: normal affect, normal mood - Skin Skin exam: Present: warm, dry, intact, normal color Course Course Narrative: Male patient presenting complaints from complaining of chest pain started around 7:30 this morning. He states he woke up and noticed that it was there. He initially attributed it to sleeping wrong and pulling a muscle in his chest. However he states that it continued. He did get full relief of the pain around 10 this morning. He to reach us to taking his blood pressure medication around 8. He is resting comfortably at this time. Denies any shortness of breath associated with it. States it was completely across his chest. Does have a productive cough that has been present for several months. Denies any nausea vomiting. Does have a history of stent placed in 1999. No cardiac workup since. Approximately a month ago he was admitted here for CHF exacerbation as well as pneumonia. We will do a cardiac workup on patient. He is refusing any pain medication at this time. States he did take aspirin at home earlier. - Reevaluation(s) Reevaluation #1: Patient's troponin is elevated. His creatinine is also elevated. He was supposed to have a cardiac catheter at the last visit here per him and his family however his creatinine was elevated so this was deferred. We will start patient on heparin at this time. All his creatinine is elevated appears to be at baseline for him. However his troponin he does only have atrial [place] however this is more elevated than normal. Repeat EKG showed no signs of acute ischemia and no changes from previous EKG today. Time: 12:59 - Consultations Consultation #1: I spoke with Dr. Lainez. He states he will consult the patient while he is in the hospital. We will admit to medicine. Time: 13:06 Consultation #2: Genet the nurse practitioner accepted patient stable condition. Time: 13:11 Vital Signs Temperature 97.6 F 01/27/18 11:00 Pulse Rate 76 01/27/18 11:00 Respiratory Rate 16 01/27/18 11:00 Blood Pressure 193/114 01/27/18 11:00 O2 Sat by Pulse Oximetry 97 01/27/18 11:00 Temperature 97.6 F 01/27/18 11:17 Pulse Rate 76 01/27/18 11:17 Respiratory Rate 16 01/27/18 11:17 Blood Pressure 193/114 01/27/18 11:17 O2 Sat by Pulse Oximetry 97 01/27/18 11:17 Oxygen Delivery Oxygen Delivery Room Air Chest Pain - Medical Records Medical records reviewed: Yes I reviewed the patient's medical records. - Lab Data Lab results reviewed: Yes I reviewed the patient's lab results. Result diagrams: 01/27/18 11:34 01/27/18 11:34 Lab Results 01/27/18 01/27/18 01/27/18 Range/Units 11:26 11:34 11:34 WBC 9.2 (4.3-11.1) K/mcL RBC 4.30 (4.19-5.50) M/mcL Hgb 13.5 (12.9-16.9) g/dL Hct 38.6 (37.5-50.1) % MCV 89.8 (83.0-100.0) fL MCH 31.4 (28.0-33.3) pg MCHC 35.0 (31.6-35.5) g/dL RDW 13.7 (11.5-14.5) % Plt Count 229 (140-400) K/mcL MPV 10.5 (9.4-12.4) fL Immature Gran % 3.1 (0-4) % Seg Neutrophils % 81.7 % Lymphocytes % 9.3 % Monocytes % 4.1 % Eosinophils % 1.0 % Basophils % 0.8 % Neutrophils # 7.5 (1.6-8.9) K/mcL Lymphocytes # 0.9 (0.6-4.6) K/mcL Monocytes # 0.4 (0.0-1.3) K/mcL Eosinophils # 0.1 (0.0-0.6) K/mcL Basophils # 0.1 (0.0-0.2) K/mcL Sodium 137 (136-145) mEq/L Potassium 3.8 (3.5-5.1) mEq/L Chloride 100 (98-107) mEq/L Carbon Dioxide 23 (23-29) mEq/L BUN 37 H (6-20) mg/dL Creatinine 2.21 H (0.70-1.30) mg/dL Est GFR ( Amer) 37 L (> 60) Est GFR (Non-Af Amer) 31 L (> 60) BUN/Creatinine Ratio 17 (6-26) Glucose 299 H (70-105) mg/dL POC Glucose 268 H (70-99) mg/dL Calculated Osmolality 304 H (280-300) Calcium 9.3 (8.6-10.3) mg/dL Troponin I 1.39 H* (< 0.04) ng/mL - Radiology Data Radiology results reviewed: Yes I reviewed the patient's radiology results. Chest X-Ray 01/27/18 11:03 IMPRESSION: No acute process. D/ / Omid Armendariz MD / Omid Armendariz MD Interpreting Provider: Omid Armendariz MD - EKG Data EKG attestation: Yes I reviewed and interpreted this EKG. EKG results narrative: Normal sinus rhythm at a rate of 74. ND interval is 154. Castration is 98. QT is 388. QTC is 4:15. No signs of acute ischemia. Does not appear as if patient has a bundle branch block however he did have one on previous EKG dated 08/17/2017. He does have some gross ST depressions in leads 2 and 3. As well as V5 and V6. Still no signs of acute ischemia no changes from previous EKG performed earlier today.
[2018-01-27 11:57] LABS: Basophils # 0.1 K/mcL (0.0-0.2); Basophils % 0.8 %; Eosinophils # 0.1 K/mcL (0.0-0.6); Hematocrit 38.6 % (37.5-50.1); Hemoglobin 13.5 g/dL (12.9-16.9); Immature Granulocytes % 3.1 % (0-4); Lymphocytes # 0.9 K/mcL (0.6-4.6); Lymphocytes % 9.3 %; Mean Corpuscular Hemoglobin 31.4 pg (28.0-33.3); Mean Corpuscular Volume 89.8 fL (83.0-100.0); Mean Platelet Volume 10.5 fL (9.4-12.4); Monocytes # 0.4 K/mcL (0.0-1.3); Monocytes % 4.1 %; Neutrophils # 7.5 K/mcL (1.6-8.9); Platelet Count 229 K/mcL (140-400); Red Cell Distribution Width 13.7 % (11.5-14.5); Segmented Neutrophils % 81.7 %
[2018-01-27 12:18] LABS: Calcium 9.3 mg/dL (8.6-10.3); Potassium 3.8 mEq/L (3.5-5.1)
[2018-01-27 12:21] LABS: Troponin I 1.39 ng/mL (< 0.04)
[2018-01-27] MEDS ORDERED: *HR* Heparin 5,000 UNIT/ML VIAL IVP ONE (12:56)
[2018-01-27] MEDS ORDERED: *HR* Heparin 5,000 UNIT/ML VIAL IVP PRN ×2 (12:56)
--- NOTE | 2018-01-27 14:28 | Cardiology Consult Note ---
<Alex Galindo R - Last Filed: 01/27/18 14:25> Date of Encounter: 01/27/18 Time of Encounter: 14:25 Assessment and Plan (1) NSTEMI (non-ST elevated myocardial infarction) Current Visit: Yes Status: Acute Chest pain this AM on waking, radiated across chest associated with diaphoresis and left arm weakness. LBBB diagnosed 08/2017 that was new. Currently no LBBB noted, intermittent LBBB. Current EKG SR, LVH, mild diffuse ST changes. Initial troponin 1.39. Trend for total of 3. Has been chest pain free since 10AM. Continue heparin gtt. Start ASA, Statin, BB. Recommend LHC--R/B/A discussed, including risk of SUGAR given his stage 3 CKD with baseline creatinine ~2. Pt agreeable to proceed. Consulted nephrology--Dr. Cabrera, who pt follows with as outpt. Appreciate their recommendations as well. Plan for LHC tomorrow. Check TTE today--TTE 08/2017 EF 50%, mild MR. (2) CKD (chronic kidney disease) stage 3, GFR 30-59 ml/min Current Visit: Yes Status: Acute Creatinine 2.21, near his baseline range. Nephrology consulted to optimize pt prior to LHC. (3) CAD (coronary artery disease) Current Visit: No Status: Chronic Hx of PCI x 2 in 1999 and 2000. As above, NSTEMI. Heparin gtt, ASA, Statin, BB. Qualifiers: Coronary Disease-Associated Artery/Lesion type: [place] artery [place] vs. transplanted heart: [place] heart Associated angina: angina presence unspecified Qualified Code(s): I25.10 - Atherosclerotic heart disease of [place] coronary artery without angina pectoris (4) Diastolic CHF Current Visit: Yes Status: Chronic Known hx of diastolic dysfunction. Appears near euvolemic on exam. Mild LE edema. Lungs clear, CXR negative. Qualifiers: Heart failure chronicity: chronic Qualified Code(s): I50.32 - Chronic diastolic (congestive) heart failure Discussion w patient/family: The assessment and plan as outlined above was discussed with the patient and/or family members who expressed understanding and agreement. All questions were answered. Thank you for involving us in the care of your patient. Please call with any questions. I will discuss all the above with Dr. Lainez and make changes as necessary. History of Present Illness Consult date: 01/27/18 Consult reason: NSTEMI Chief complaint: Chest pain History of present illness: Mr. Pitts is a 57 year old male with PMH of CAD hx of 2 stents in the early , HTN, HLD, T2DM, CKD3, diastolic dysfunction, LBBB presented to ED today with complaint of chest pain that started at 0730 this AM. Reports chest pain was present when he woke from sleep, left sided, heavy and radiated across his chest associated with left arm weakness and diaphoresis. He states the chest pain resolved on its own on his way to [facility] ~1000 and has been chest pain free since that time.There were no exacerbating or alleviating factors. Initial troponin 1.39. Cardiology consulted for further recs. Of note, cardiology saw pt in consult 08/2017 for mild troponins and a new LBBB compared to 2013. TTE 08/2017 EF 50%, mild MR. Saini is currently chest pain free and on heparin gtt. Creatinine 2.21, near his baseline range. Past Med Surg Social Fam HX - Past Medical History Medical history: coronary artery disease, diabetes, hyperlipidemia, hypertension , myocardial infarction Psychiatric history: anxiety, depression - Past Surgical History Surgical History: angioplasty/stent - Social History Smoking Status: Former smoker Smokeless Tobacco Status: No Alcohol use: none Drug use: none - Family History Father Hx Family Cardiac Disorders: Yes Mother Hx Family Endocrine Disorder: Yes (Diabetes) Medications and Allergies Allopurinol [Zyloprim 300 MG] 300 mg PO DAILY 08/16/17 [History] Amlodipine Besylate 10 mg PO DAILY 08/16/17 [History] Aspirin [Lo-Dose Aspirin EC] 81 mg PO DAILY 08/16/17 [History] Cholecalciferol (D-3) [Vitamin D] 5,000 unit PO DAILY 08/16/17 [History] Escitalopram [Lexapro] 20 mg PO DAILY 08/16/17 [History] Fenofibrate Nanocrystallized [Tricor] 145 mg PO DAILY 08/16/17 [History] Finasteride [Proscar] 5 mg PO DAILY 08/16/17 [History] Insulin ASPART [Novolog] 5 - 15 unit SQ TIDWM 08/16/17 [History] Insulin DETEMIR [Levemir Flextouch] 40 unit SQ HS 08/16/17 [History] Insulin DETEMIR [Levemir Flextouch] 50 unit SQ QAM 08/16/17 [History] Tamsulosin [Flomax] 0.4 mg PO DAILY 08/16/17 [History] clonazePAM [Klonopin] 0.5 mg PO BID 08/16/17 [History] Potassium Chloride 10 meq PO BIDWM #60 tab.er.prt 08/20/17 [Rx] Furosemide [Lasix] 40 mg PO BID 01/27/18 [History] Losartan Potassium [Cozaar] 50 mg PO DAILY 01/27/18 [History] Lovastatin 40 mg PO QPM 01/27/18 [History] Metoprolol Succinate 200 mg PO DAILY 01/27/18 [History] 3 Allergy/AdvReac Type Severity Reaction Status Date / Time No Known Allergies Allergy Verified 01/05/17 18:47 All Systems Review: The remainder of the systems were reviewed and are negative - Cardiovascular Cardiovascular: as per HPI, chest pain at rest, chest pain with exertion, diaphoresis, dyspnea on exertion, radiating jaw, neck or arm pain, leg edema - Respiratory Respiratory: dyspnea Physical Examination Vital Signs, Last 4 Hours Temp Pulse BP Pulse Ox 01/27/18 14:23 98.4 F 71 139/80 95 Vital Signs Temp Pulse Resp BP Pulse Ox 01/27/18 14:23 98.4 F 71 139/80 95 01/27/18 13:17 65 14 154/103 96 01/27/18 11:17 97.6 F 76 16 193/114 97 01/27/18 11:00 97.6 F 76 16 193/114 97 Intake and Output 01/26/18 01/27/18 01/27/18 23:59 07:59 15:59 Other: Weight 113.398 kg Patient Weight 01/27/18 23:59 Weight 113.398 kg General: Conversant, No Apparent Distress HEENT: Atraumatic, Normocephaly, Mucus Membranes Moist Neck: No JVD, Normal carotid pulses Cardiac: Reg Rate and Rhythm, Normal S1 and S2, No Murmur Lungs: Normal Breath Sounds, No Wheeze, Rales, Rhonchi Neuro: Alert and responsive, No focal deficits noted Abdomen: Soft, Non-Tender Skin: No rashes noted on visualized skin Musculoskeletal: No Chest Wall Tenderness Extremities: Other (mild LE edema) Results 01/27/18 11:34 01/27/18 11:34 Short CBC 01/27/18 01/27/18 01/27/18 Range/Units 11:34 11:34 11:26 WBC 9.2 (4.3-11.1) K/mcL RBC 4.30 (4.19-5.50) M/mcL Hgb 13.5 (12.9-16.9) g/dL Hct 38.6 (37.5-50.1) % MCV 89.8 (83.0-100.0) fL MCH 31.4 (28.0-33.3) pg MCHC 35.0 (31.6-35.5) g/dL RDW 13.7 (11.5-14.5) % Plt Count 229 (140-400) K/mcL MPV 10.5 (9.4-12.4) fL Immature Gran % 3.1 (0-4) % Seg Neutrophils % 81.7 % Lymphocytes % 9.3 % Monocytes % 4.1 % Eosinophils % 1.0 % Basophils % 0.8 % Neutrophils # 7.5 (1.6-8.9) K/mcL Lymphocytes # 0.9 (0.6-4.6) K/mcL Monocytes # 0.4 (0.0-1.3) K/mcL Eosinophils # 0.1 (0.0-0.6) K/mcL Basophils # 0.1 (0.0-0.2) K/mcL Sodium 137 (136-145) mEq/L Potassium 3.8 (3.5-5.1) mEq/L Chloride 100 (98-107) mEq/L Carbon Dioxide 23 (23-29) mEq/L BUN 37 H (6-20) mg/dL Creatinine 2.21 H (0.70-1.30) mg/dL Est GFR ( Amer) 37 L (> 60) Est GFR (Non-Af Amer) 31 L (> 60) BUN/Creatinine Ratio 17 (6-26) Glucose 299 H (70-105) mg/dL POC Glucose 268 H (70-99) mg/dL Calculated Osmolality 304 H (280-300) Calcium 9.3 (8.6-10.3) mg/dL Troponin I 1.39 H* (< 0.04) ng/mL BMP 04/25/18 Range/Units 11:34 Sodium 137 (136-145) mEq/L Potassium 3.8 (3.5-5.1) mEq/L Chloride 100 (98-107) mEq/L Carbon Dioxide 23 (23-29) mEq/L BUN 37 H (6-20) mg/dL Creatinine 2.21 H (0.70-1.30) mg/dL Glucose 299 H (70-105) mg/dL Calcium 9.3 (8.6-10.3) mg/dL Cardiac Enzymes 01/27/18 Range/Units 11:34 Troponin I 1.39 H* (< 0.04) ng/mL Impressions Chest X-Ray 01/27/18 11:03 IMPRESSION: No acute process. D/ / Omid Armendariz MD / Omid Armendariz MD Interpreting Provider: Omid Armendariz MD Active Medications Heparin Sodium (Porcine) (Heparin) 4,000 unit IVP Q6HR PRN PRN Reason: SEE COMMENTS Stop: 07/29/18 12:57 Heparin Sodium (Porcine) (Heparin) 2,000 unit IVP Q6H PRN PRN Reason: SEE COMMENTS Stop: 07/29/18 12:57 Heparin Sodium/Dextrose (Heparin 25,000 Unit/500 Ml D5w) 25,000 unit in 500 mls @ 27.216 mls/hr IVC .[id number] BALDEMAR; 12 UNIT/KG/HR PRN Reason: Protocol Stop: 07/29/18 13:01 - Imaging and Cardiology Echo: report reviewed - EKG Interpretation EKG results cardiology: personally reviewed (SR, mild diffuse ST changes) Consult Discharge Plan - Plan Referrals: Getachew Judd, DO [Primary Care Provider] - <Winston Lainez - Last Filed: 01/27/18 21:38> Date of Encounter: 01/27/18 Time of Encounter: 21:00 - Attending Attestation I have personally performed a face to face evaluation on this patient. I have reviewed and agree with the care plan. History and Exam by me shows: CC: Chest pain Pt presented to ER with complaints of new onset chest pain, mid sternal, awoke him from sleep around 7:30 AM, left sided, associated with left arm numbness and diaphoresis. Pt reports lasted two hours, starting at an 8/10, fading to 0 by the time he went to the ER at 10:00 AM. HE had similar episode in 08/21, was admitted, ruled out for AMI, lifestyle modifications recommended and discharged to home. This is the first episode of chest pain he has experienced since then. Pt reports this is the same pain he experienced with his previous HI in the early , at which time he had two stents placed in unknown vessel. PMHx.: reviewed PE: pt seen and examined, agree with findings as documented. IMP/Plan: 1. NSTEMI: troponin 1.39, no acute EKG changes, discussed options, invasive versus non-invasive strategy, recommend LHC/poss, risks and benefits discussed with he and at bedside, elect to proceed with diagnostic LHC/poss PCI in AM. Assessment and Plan Discussion w patient/family: The assessment and plan as outlined above was discussed with the patient and/or family members who expressed understanding and agreement. All questions were answered. Thank you for involving us in the care of your patient. Please call with any questions. History of Present Illness History of present illness: Mr. Pitts is a 57 year old male All Systems Review: The remainder of the systems were reviewed and are negative Results 01/27/18 11:34 01/27/18 11:34 Lab Results 01/27/18 17:36 Troponin I 6.92 H*
[2018-01-27 14:32] LABS: Activated Partial Thrombo Time 29.4 Seconds (26.0-36.0); INR 0.9; Prothrombin Time 10.1 Seconds (9.4-12.1)
[2018-01-27] MEDS ORDERED: Naloxone 0.4 MG/ML INJ IVP PRN (14:40)
[2018-01-27] MEDS ORDERED: D5% in Water 1,000 ML IVC PRN (14:44)
[2018-01-27] MEDS ORDERED: *HR* Dextrose 50 % in Water (Syg) 50 ML SYRINGE IVP PRN (14:44)
[2018-01-27] MEDS ORDERED: Dextrose Gel 15 GM/37.5 ML TUBE PO PRN ×2 (14:44)
[2018-01-27] MEDS ORDERED: 0.9 % Sodium Chloride 1,000 ML IVC SCH (14:45)
--- NOTE | 2018-01-27 14:49 | Nephrology Consult Note ---
Date of Encounter: 01/27/18 Time of Encounter: 14:44 Assessment and Plan (1) CKD (chronic kidney disease) stage 3, GFR 30-59 ml/min Current Visit: Yes Status: Acute Will monitor Scr and GFR. Mucomyst and NS ordered prophylactically for possible heart cath tomorrow. Avoid Nephrotoxins when possible. (2) NSTEMI (non-ST elevated myocardial infarction) Current Visit: Yes Status: Acute Per Cardio. (3) CAD (coronary artery disease) Current Visit: No Status: Chronic per Cardio. Qualifiers: Coronary Disease-Associated Artery/Lesion type: [place] artery [place] vs. transplanted heart: [place] heart Associated angina: angina presence unspecified Qualified Code(s): I25.10 - Atherosclerotic heart disease of [place] coronary artery without angina pectoris (4) Chest pain Current Visit: Yes Status: Acute Resolved at this time. Qualifiers: Chest pain type: unspecified Qualified Code(s): R07.9 - Chest pain, unspecified History of Present Illness - Reason for Consult Chronic Kidney Disease - Chief Complaint CP - History of Present Illness Mr. Pitts is a 57 year old Male, known to [facility]. Dr. Cabrera manages his stage 3 CKD. Pertinent PMH: CAD with 2 stents, HTN, HLD, T2DM, and diastolic dysfunction. Unfortunately, today he presented to ED with midsternal chest pain that was relieved within 2 hours of arriving to the ED. There is concern for worsening CKD, which is why Nephrology was asked to see the patient. Past Med Surg Social Fam HX - Past Medical History Medical history: coronary artery disease, diabetes, hyperlipidemia, hypertension , myocardial infarction Psychiatric history: anxiety, depression - Past Surgical History Surgical History: angioplasty/stent - Social History Smoking Status: Former smoker Smokeless Tobacco Status: No Alcohol use: none Drug use: none - Family History Father Hx Family Cardiac Disorders: Yes Mother Hx Family Endocrine Disorder: Yes (Diabetes) Medications and Allergies Allopurinol [Zyloprim 300 MG] 300 mg PO DAILY 08/16/17 [History] Amlodipine Besylate 10 mg PO DAILY 08/16/17 [History] Aspirin [Lo-Dose Aspirin EC] 81 mg PO DAILY 08/16/17 [History] Cholecalciferol (D-3) [Vitamin D] 5,000 unit PO DAILY 08/16/17 [History] Escitalopram [Lexapro] 20 mg PO DAILY 08/16/17 [History] Fenofibrate Nanocrystallized [Tricor] 145 mg PO DAILY 08/16/17 [History] Finasteride [Proscar] 5 mg PO DAILY 08/16/17 [History] Insulin ASPART [Novolog] 5 - 15 unit SQ TIDWM 08/16/17 [History] Insulin DETEMIR [Levemir Flextouch] 40 unit SQ HS 08/16/17 [History] Insulin DETEMIR [Levemir Flextouch] 50 unit SQ QAM 08/16/17 [History] Tamsulosin [Flomax] 0.4 mg PO DAILY 08/16/17 [History] clonazePAM [Klonopin] 0.5 mg PO BID 08/16/17 [History] Potassium Chloride 10 meq PO BIDWM #60 tab.er.prt 08/20/17 [Rx] Furosemide [Lasix] 40 mg PO BID 01/27/18 [History] Losartan Potassium [Cozaar] 50 mg PO DAILY 01/27/18 [History] Lovastatin 40 mg PO QPM 01/27/18 [History] Metoprolol Succinate 200 mg PO DAILY 01/27/18 [History] 3 Allergy/AdvReac Type Severity Reaction Status Date / Time No Known Allergies Allergy Verified 01/05/17 18:47 Review of Systems Constitutional: no fatigue, no fever(s), no night sweats, no weakness Nose, mouth and throat: no dizziness Cardiovascular: as per HPI, chest pain, chest pain at rest, dyspnea on exertion , no palpitations Respiratory: no cough, no wheezing Gastrointestinal: no change in bowel habits, no loose stools Genitourinary Male: no urinary frequency, no urinary hesitancy, no urinary incontinence Exam - Vital Signs Vital signs: Initial Vital Signs Temp Pulse Resp BP Pulse Ox 97.6 F 76 16 193/114 97 01/27/18 11:00 01/27/18 11:00 01/27/18 11:00 01/27/18 11:00 01/27/18 11:00 Vital Signs - Last 8 Hours Temp Pulse BP Pulse Ox 01/27/18 14:23 98.4 F 71 139/80 95 - General Appearance General appearance: well-developed, well-nourished, obese EENT: ATNC, hearing intact, vision intact Neck: supple Cardiology: no murmurs, regular rate, normal S1, normal S2 Gastrointestinal: normoactive bowel sounds, no tenderness, no guarding Integumentary: no rash, warm and dry Neurologic: no asterixis, alert and oriented x3 Psychiatric: mood/affect appropriate, cooperative Results - Lab Results 01/27/18 11:34 01/27/18 11:34 Most recent lab results Calcium 9.3 mg/dL (8.6-10.3) 01/27/18 11:34 Consult Discharge Plan - Plan Referrals: Getachew Judd DO [Primary Care Provider] -
--- NOTE | 2018-01-27 14:52 | Internal Med History&Physical ---
Addendum entered and electronically signed by Roxane Brown CNP 01/27/18 15:49: Discussed case with nephrology (Dr. Justin) and will hold lasix at this time with worsening renal function. Will most likely need to be resumed prior to discharge. Defer resuming Lasix to nephrology. Original Note: <Roxane Brown - Last Filed: 01/27/18 15:19> Date of Encounter: 01/27/18 Time of Encounter: 14:50 Internal Medicine - H&P: HPI Chief complaint: Chest pain Admitted From: Home Plans for Post Hospital Care: Home History of present illness: Mr. Pitts is a 57 year old male with PMH CAD, see KD, hypertension, diabetes and gout who presented to [facility] on 01/27/18 with complaints of chest pain. He is placed in observation status for further workup and treatment. Information obtained from chart review and patient report. Patient reports waking up from sleep around 0700 this morning with central chest pressure, no radiation but says left arm felt weak. Nothing makes chest pressure better or worse. Says chest pressure spontaneously resolved at 10:00 this morning. No shortness of breath. Past Med Surg Social Fam HX - Past Medical History Medical history: coronary artery disease, diabetes, hyperlipidemia, hypertension , myocardial infarction Psychiatric history: anxiety, depression - Past Surgical History Surgical History: angioplasty/stent - Social History Smoking Status: Former smoker Smokeless Tobacco Status: No Alcohol use: none Drug use: none - Family History Father Hx Family Cardiac Disorders: Yes Mother Hx Family Endocrine Disorder: Yes (Diabetes) Internal Medicine - H&P: Meds Allopurinol [Zyloprim 300 MG] 300 mg PO DAILY 08/16/17 [History] Amlodipine Besylate 10 mg PO DAILY 08/16/17 [History] Aspirin [Lo-Dose Aspirin EC] 81 mg PO DAILY 08/16/17 [History] Cholecalciferol (D-3) [Vitamin D] 5,000 unit PO DAILY 08/16/17 [History] Escitalopram [Lexapro] 20 mg PO DAILY 08/16/17 [History] Fenofibrate Nanocrystallized [Tricor] 145 mg PO DAILY 08/16/17 [History] Finasteride [Proscar] 5 mg PO DAILY 08/16/17 [History] Insulin ASPART [Novolog] 5 - 15 unit SQ TIDWM 08/16/17 [History] Insulin DETEMIR [Levemir Flextouch] 40 unit SQ HS 08/16/17 [History] Insulin DETEMIR [Levemir Flextouch] 50 unit SQ QAM 08/16/17 [History] Tamsulosin [Flomax] 0.4 mg PO DAILY 08/16/17 [History] clonazePAM [Klonopin] 0.5 mg PO BID 08/16/17 [History] Potassium Chloride 10 meq PO BIDWM #60 tab.er.prt 08/20/17 [Rx] Furosemide [Lasix] 40 mg PO BID 01/27/18 [History] Losartan Potassium [Cozaar] 50 mg PO DAILY 01/27/18 [History] Lovastatin 40 mg PO QPM 01/27/18 [History] Metoprolol Succinate 200 mg PO DAILY 01/27/18 [History] 3 Allergy/AdvReac Type Severity Reaction Status Date / Time No Known Allergies Allergy Verified 01/05/17 18:47 All Systems PM: A 10-system review of systems was performed and is negative for pertinent findings except as documented above in the HPI. - Constitutional Constitutional: no chills, no fever(s), no night sweats - EENT Eyes: no change in vision, no discharge, no pain, no photophobia Ears: no ear discharge, no ear pain, no tinnitus Nose, mouth and throat: no dysphagia, no nasal discharge, no neck pain, no sore throat - Cardiovascular Cardiovascular ROS IM: as per HPI, chest pain, no diaphoresis, no dyspnea, no lightheadedness, no palpitations, no syncope - Respiratory Respiratory: no cough, no dyspnea, no wheezing, no excessive phlegm production - Gastrointestinal Gastrointestinal: no abdominal pain, no diarrhea, no hematemesis, no hematochezia, no melena, no nausea, no vomiting - Musculoskeletal Musculoskeletal ROS IM: no numbness, no tingling - Integumentary Integumentary IM: no rash, no unusual bruising - Neurological Neurological ROS: no confusion, no convulsions, no focal weakness, no numbness, no tingling, no tremor(s) - Hematologic/Lymphatic Hematologic/Lymphatic: no easy bruising - Constitutional Vitals: Temp Pulse Resp BP Pulse Ox 98.4 F 71 14 139/80 95 01/27/18 14:23 01/27/18 14:23 01/27/18 13:17 01/27/18 14:23 01/27/18 14:23 General appearance: Present: A&O X 3, morbidly obese, no acute distress - Head Head exam: Present: atraumatic, normocephalic - Eye Eye exam: Present: PERRL, conjuntiva pink, sclera anicteric Pupils: Present: PERRL - Neck Neck exam general surgery: Present: supple, trachea midline. Absent: lymphadenopathy - Respiratory Respiratory exam: Present: CTAB. Absent: accessory muscle use, rales, rhonchi, wheezes - Cardiovascular Cardiovascular exam: Present: RRR, +S1, +S2. Absent: diastolic murmur, gallop, rubs, systolic murmur - GI/Abdominal GI/Abdominal exam: Present: normal bowel sounds, soft, no peritoneal signs. Absent: distended, tenderness - Extremities Exam Extremities exam: Present: warm, radial pulses palpable and symmetrical. Absent : calf tenderness, cyanotic, pedal edema - Neurological Exam Neurological exam: Present: CN II-XII intact, oriented X3, no focal deficits. Absent: pronater drift, facial droop, speech deficit - Skin Skin exam: Present: dry, intact Internal Med - H&P Results - Labs CBC & Chem 7: 01/27/18 11:34 01/27/18 11:34 - Assessment and plan (1) CKD (chronic kidney disease) stage 3, GFR 30-59 ml/min Current Visit: Yes Status: Acute Assessment and plan: per hx. Follows with Nephrology. Renal function slightly worsened from baseline. Nephrology consulted as left heart catheterization planned as noted above. Mucomyst and NS ordered prophylactically for LHC. Avoid Nephrotoxins when possible. Nephrology following (2) Hyperlipidemia Current Visit: No Status: Acute Assessment and plan: per hx. Cont home statin Qualifiers: Hyperlipidemia type: unspecified Qualified Code(s): E78.5 - Hyperlipidemia , unspecified (3) Diabetes mellitus Current Visit: No Status: Chronic Assessment and plan: per hx. Control unknown. Continue home long-acting at decreased dose as diet is likely more restricted inpatient. Add SSI. Monitor blood sugar and titrate PRN. Hgb A1c pending Qualifiers: Diabetes mellitus type: type 2 Diabetes mellitus termite exterminator insulin use: with halfway use Diabetes mellitus complication status: with kidney complications Diabetes mellitus complication detail: with chronic kidney disease Chronic kidney disease stage: stage 3 (moderate) Qualified Code(s): E11.22 - Type 2 diabetes mellitus with diabetic chronic kidney disease; N18.3 - Chronic kidney disease, stage 3 (moderate); N18.3 - Chronic kidney disease, stage 3 (moderate); Z79.4 - termite exterminator (current) use of insulin; Z79.4 - correction (current) use of insulin; Z79.4 - correction (current) use of insulin; Z79.4 - correction (current) use of insulin (4) Hypertension Current Visit: No Status: Chronic Assessment and plan: per hx. BP uncontrolled on arrival; possibly secondary to stress/anxiety/chest pain. Home meds taken prior to admission. BP now controlled. Continue home BP medications. Monitor BP and titrate PRN. Add PRN hydralazine Qualifiers: Hypertension type: essential hypertension Qualified Code(s): I10 - Essential (primary) hypertension (5) Anxiety and depression Current Visit: No Status: Chronic Assessment and plan: per hx. Cont home anti-anxiety (6) DVT prophylaxis Current Visit: No Status: Acute Assessment and plan: heparin gtt (7) NSTEMI (non-ST elevated myocardial infarction) Current Visit: Yes Status: Acute Assessment and plan: has known CAD with prior [place] and stents. Presented with chest pain that woke him from sleep with associated left arm weakness. EKG SR, mild diffuse ST changes. Initial troponin 1.39; heparin drip started in the ED. Continue to cycle troponins, check echocardiogram. NPO at midnight for [facility]. Cardiology following. Monitor on telemetry. Continue home ASA, BB, statin - Time Spent With Patient Total time spent is greater than 50% in coordination of care (as documented) at patient's floor/unit and/or counseling patient: <Elaine Roque - Last Filed: 01/27/18 16:09> Date of Encounter: 01/27/18 Internal Medicine - H&P: HPI History of present illness: Mr. Pitts is a 57 year old male All Systems PM: A 10-system review of systems was performed and is negative for pertinent findings except as documented above in the HPI. - Constitutional Vitals: Temp Pulse Resp BP Pulse Ox 98.4 F 71 14 139/80 95 01/27/18 14:23 01/27/18 14:23 01/27/18 13:17 01/27/18 14:23 01/27/18 14:23 Internal Med - H&P Results - Labs CBC & Chem 7: 01/27/18 11:34 01/27/18 11:34 - Attending Attestation Patient examined, chart reviewed and agreed with the plan of care. Family at bedside. Patient is almost chest pain free at this time. Heparin drip in process. Seen by tariff inspector who is planning for left heart catheterization tomorrow morning. Consulted athletic director for monitoring of kidney with a history of CAD and plan for heart effect tomorrow. Lasix on hold due to slight raised creatinine level compared to last one. Mucomyst prophylactically started. - Assessment and plan (1) Hypertension Current Visit: No Status: Chronic Qualifiers: Hypertension type: essential hypertension Qualified Code(s): I10 - Essential (primary) hypertension (2) Diabetes mellitus Current Visit: No Status: Chronic Qualifiers: Diabetes mellitus type: type 2 Diabetes mellitus halfway insulin use: with termite exterminator use Diabetes mellitus complication status: with kidney complications Diabetes mellitus complication detail: with chronic kidney disease Chronic kidney disease stage: stage 3 (moderate) Qualified Code(s): E11.22 - Type 2 diabetes mellitus with diabetic chronic kidney disease; N18.3 - Chronic kidney disease, stage 3 (moderate); N18.3 - Chronic kidney disease, stage 3 (moderate); Z79.4 - termite exterminator (current) use of insulin; Z79.4 - correction (current) use of insulin; Z79.4 - correction (current) use of insulin; Z79.4 - correction (current) use of insulin (3) DVT prophylaxis Current Visit: No Status: Acute (4) Hyperlipidemia Current Visit: No Status: Acute Qualifiers: Hyperlipidemia type: unspecified Qualified Code(s): E78.5 - Hyperlipidemia , unspecified (5) Anxiety and depression Current Visit: No Status: Chronic (6) CKD (chronic kidney disease) stage 3, GFR 30-59 ml/min Current Visit: Yes Status: Acute (7) NSTEMI (non-ST elevated myocardial infarction) Current Visit: Yes Status: Acute - Time Spent With Patient Total time spent is greater than 50% in coordination of care (as documented) at patient's floor/unit and/or counseling patient:
[2018-01-27] MEDS: Heparin 25,000 UNIT/500 ML D5W 25,000 UNIT/500 ML BAG IVC SCH (15:10)
[2018-01-27] MEDS: Insulin LISPRO 300 UNITS/3 ML VIAL SQ SCH ×2 (18:49→21:06)
[2018-01-27] MEDS: *HR* Acetylcysteine 20% 600 MG/3 ML ORAL SYRINGE PO SCH (19:30)
[2018-01-27 20:31] LABS: Estimated Average Glucose 194 mg/dl; Hemoglobin A1C 8.4 %
[2018-01-27] MEDS ORDERED: Furosemide 40 MG TABLET PO SCH (21:00)
[2018-01-27] MEDS ORDERED: NON-FORMULARY MEDICATION 1 EACH EACH (Insulin Detemir [Levemir Flextouch] 30 UNIT) SQ SCH (21:00)
[2018-01-27] MEDS: Acetaminophen 325 MG TABLET PO PRN (21:01)
[2018-01-27] MEDS: clonazePAM 0.5 MG TABLET PO SCH (21:02)
[2018-01-27] MEDS: Insulin DETEMIR 100 UNIT/ML X5UNITS SQ SCH (22:32)
[2018-01-28] MEDS: *HR* Acetylcysteine 20% 600 MG/3 ML ORAL SYRINGE PO SCH ×3 (00:10→20:38)
[2018-01-28] MEDS: Acetaminophen 325 MG TABLET PO PRN ×2 (05:32→09:09)
[2018-01-28 07:08] LABS: Calcium 9.1 mg/dL (8.6-10.3); Potassium 3.1 mEq/L (3.5-5.1)
[2018-01-28 07:09] LABS: Hematocrit 38.2 % (37.5-50.1); Hemoglobin 12.9 g/dL (12.9-16.9); Mean Corpuscular HGB Conc 33.8 g/dL (31.6-35.5); Mean Corpuscular Hemoglobin 30.6 pg (28.0-33.3); Mean Corpuscular Volume 90.7 fL (83.0-100.0); Mean Platelet Volume 10.7 fL (9.4-12.4); Platelet Count 208 K/mcL (140-400); Red Blood Count 4.21 M/mcL (4.19-5.50); Red Cell Distribution Width 13.6 % (11.5-14.5)
[2018-01-28] MEDS: Aspirin Enteric Coated 81 MG Tablet PO SCH (08:02)
[2018-01-28] MEDS: clonazePAM 0.5 MG TABLET PO SCH ×2 (08:02→20:37)
[2018-01-28] MEDS: Fenofibrate 54 MG TABLET PO SCH (08:02)
[2018-01-28] MEDS: amLODIPine 5 MG TABLET PO SCH (08:02)
[2018-01-28] MEDS: Insulin LISPRO 300 UNITS/3 ML VIAL SQ SCH ×4 (08:04→22:08)
--- NOTE | 2018-01-28 08:26 | Event Note ---
Date of Encounter: 01/28/18 Time of Encounter: 08:25 - Cardiology Event Note NSTEMI, peak troponin 6.97. Creatinine 2.11 today, within baseline range. Nephrology following as well. [facility] today. R/B/A discussed. Pt agrees to proceed, aware of risk of SUGAR and possibility of dialysis.
[2018-01-28] MEDS ORDERED: NON-FORMULARY MEDICATION 1 EACH EACH (Insulin Detemir [Levemir Flextouch] 30 UNIT) SQ SCH (09:00)
[2018-01-28] MEDS ORDERED: Metoprolol XL (24 HR) Succ 50 MG TAB.ER.24H PO SCH (09:00)
[2018-01-28] MEDS: Heparin 25,000 UNIT/500 ML D5W 25,000 UNIT/500 ML BAG IVC SCH (09:20)
--- NOTE | 2018-01-28 09:40 | Nephrology Progress Note ---
Date of Encounter: 01/28/18 Time of Encounter: 09:00 - Assessment and Plan (1) CKD (chronic kidney disease) stage 3, GFR 30-59 ml/min Current Visit: Yes Status: Chronic CKD stage III and to help minimize the potential risks for Contrast induced RONI , I rec continuing the IVF of 0.9% saline at low flow for today. Holding Lasix and the ARB for now. NAC may be helpful, and so will have him receive this as well. Based upon his volume status, BP and SCr tomorrow, would likely resume the Losartan tomorrow. Continue the CCB and BB (but of his Metoprolol succinate is listed as 200mg BID, and he's presently receiving Metoprolol succinate 200mg daily -- yes, succinate is typically once daily but in some instances it is also prescribed bid). Since his BPs are so elevated, cont to use the Hydralazine prn. I suspect is high levels of anxiety are contributing to the elevated BPs. (2) NSTEMI (non-ST elevated myocardial infarction) Current Visit: Yes Status: Acute Appreciated Cardiology. (3) Anxiety and depression Current Visit: No Status: Chronic See above. Agree with the Benzo. (4) Hypertension Current Visit: No Status: Chronic See above Qualifiers: Hypertension type: essential hypertension Qualified Code(s): I10 - Essential (primary) hypertension Subjective Principal diagnosis: CKD and NSTEMI Interval history: Pt was s/e earlier today. He was laying in bed and reported feeling anxious; has not had any breakfast (he affirmed that he's properly NPO); and his was at the bedside. He did not affirm N/V/D or abd pain or any feelings of being "swollen." Objective - Vital Signs Vital signs: Vital Signs Temp Pulse Resp BP Pulse Ox 01/28/18 09:04 97.9 F 85 18 163/83 93 01/28/18 08:02 98.0 F 78 18 201/105 93 01/28/18 05:11 98.2 F 62 17 195/92 96 01/27/18 23:34 98.4 F 67 17 145/59 95 01/27/18 22:36 68 162/90 01/27/18 22:20 98 F 68 18 181/96 95 Intake and Output 04/25/18 04/26/18 04/26/18 23:59 07:59 15:59 Intake Total 460.2 / 460.2 39.8 / 39.8 Balance 460.2 / 460.2 39.8 / 39.8 Intake: IV Fluids 460.2 / 460.2 39.8 / 39.8 Heparin 25,000 UNIT/500 ML D5W 460.2 / 460.2 39.8 / 39.8 25,000 unit In 500 ml @ 12 UNIT /KG/HR 27.216 mls/hr IVC . [id number] [facility] Rx#:[id number] Oral 0 / 0 Other: Meal turkey sandwich 2 pks of goldfish NPO Percent of Meal Consumed 0% Weight 116.573 kg Blood Glucose* 132 302 Patient Weight 01/28/18 23:59 Weight 116.573 kg - General Appearance General appearance: Present: well-developed, well-nourished, appears started age , obese EENT: Present: ATNC, PERRL, mucous membranes moist Neck: Present: supple Respiratory: Present: clear Cardiology: Present: edema (trace ankle edema, but no hand edema, bilaterally), regular rate, regular rhythm, normal S1, normal S2 Gastrointestinal: Present: normoactive bowel sounds, no tenderness, no guarding , obese Integumentary: Present: no rash, warm and dry Neurologic: Present: no focal deficit, no asterixis, alert and oriented x3 Musculoskeletal: Present: no deformities, no erythema Psychiatric: Present: cooperative (and anxious appearing) - Lab 01/28/18 06:31 01/28/18 06:31 Most recent lab results Calcium 9.1 mg/dL (8.6-10.3) 01/28/18 06:31 Consult Discharge Plan - Plan Referrals: Getachew Judd DO [Primary Care Provider] -
[2018-01-28] MEDS: Insulin DETEMIR 100 UNIT/ML X5UNITS SQ SCH ×2 (12:47→22:07)
[2018-01-28] MEDS ORDERED: *HR* Midazolam HCl 2 MG/2 ML VIAL ONE (14:13)
--- NOTE | 2018-01-28 14:21 | Pre-Sedation Evaluation ---
Pre-sedation evaluation - Pre-sedation checklist Date of procedure: 01/28/18 Procedure: heart cath Recent Vitals: Last Vital Signs Temp 98.3 F 01/28/18 11:26 Pulse 76 01/28/18 11:26 Resp 18 01/28/18 11:26 BP 144/82 01/28/18 11:26 Pulse Ox 95 01/28/18 11:26 H&P (including ROS) documented in medical record: Yes Previous reaction to sedatives/anesthetics: Yes; explain in comment Dietary Status: NPO after Midnight Airway Assessment: Patient can open mouth completely, TMJ function normal Dentition: No loose teeth or bridges Possible difficult airway: No ASA Classification *see protocol: CLASS III-Severe systemic disease Plan of Care: Pt appropriate candidate for procedure/moderate/conscious sedation , Risks/benefits of procedure/sedation discussed w/ patient/family, If not NPO; Risk of intake outweiged by necessity to perform procedure
[2018-01-28] MEDS ORDERED: *HR* Ticagrelor 90 MG TABLET ONE (15:02)
[2018-01-28] MEDS ORDERED: 0.9 % Sodium Chloride 1,000 ML IVC SCH (15:15)
[2018-01-28] MEDS ORDERED: *HR* Heparin 10,000 UNIT/10 ML VIAL ONE (15:26)
[2018-01-28] MEDS ORDERED: Heparin 1,000 UNITS/500 mL 500 ML ONE (15:26)
[2018-01-28] MEDS ORDERED: ISOVUE-370 200 ML INFUS..BTL IV ONE (15:26)
[2018-01-28] MEDS ORDERED: Nitroglycerin 1,000 MCG/10 ML VIAL IV ONE (15:26)
[2018-01-28] MEDS ORDERED: Nitroglycerin Spray 4.9 GM BOTTLE ONE (17:12)
--- NOTE | 2018-01-28 18:07 | Invasive Diagnostic Lab Proc ---
Name: Solo Pitts Date of Study: 01/28/2018 Date: 1960 Ht: 66.0in Medical Record#: [id number] Age: 57 Wt: 255.74lb Gender: Male BSA: 2.22 Order #: [id number] BMI: 41.3 Physicians Procedure Physician: Winston Lainez DO Referring MD: Referring MD: Staff Name Position Time In Zack, Adrian RN Monitor 02:18 PM Sukhjinder Heath RT (R) Scrub 02:18 PM Jayden Colindres RN Utility Operator Yarn 02:18 PM Joan Peter RT (R) Monitor 02:18 PM Indications Indication Non-Stemi Procedures Performed Procedure L HRT ARTERY/VENTRICLE ANGIO PRQ CARD CODI STENT W/ANGIO 1 VSL Pre-Procedure Checklist Informed consent is complete signed and on chart. H&P is on chart. ID band is on and ID verified with patient. Patient NPO for procedure The procedure was described for the patient and questions were answered. Blood Pressure: 163/83 ECG is on chart. Rhythm: NSR Plan of Care Patient will tolerate the procedure without complications. Adequate level of comfort will be maintained. Hemodynamics will remain stable Patient will recover from procedure without complications. Respiratory function will be maintained. Cardiac rhythm will remain stable. Patient temperature will be maintained. Patient and/or family have verbalized understanding of the procedure. Patient Education Intravenous Access Time IV Size Location DC'd Fluid/Drip Rate Units RN 20g 1 10/08" Patent On Arrival Rt Hand Jayden Colindres RN Allergies No Known Allergies NONE NKA Vital Signs Time BP (mmHg) HR (bpm) O2 Sat. RR (bpm) LOC 02:19 PM / % 5 = Fully awake and oriented or at pre-proc level 02:19 PM / % 4 = Oriented but drowsy 02:34 PM / % 4 = Oriented but drowsy 02:49 PM / % 4 = Oriented but drowsy 02:21 PM 181 / 95 80 99 % 02:25 PM 168 / 92 80 99 % 02:30 PM 161 / 98 79 99 % 02:35 PM 173 / 93 80 98 % 02:41 PM 182 / 102 78 98 % 02:46 PM 185 / 95 84 99 % 02:51 PM 188 / 99 86 99 % 02:56 PM 187 / 89 83 99 % 03:01 PM 184 / 99 83 100 % 03:06 PM 182 / 93 78 97 % 03:11 PM 183 / 89 % 03:15 PM 170 / 96 75 98 % 18 5 = Fully awake and oriented or at pre-proc level 03:30 PM 178 / 98 76 97 % 16 5 = Fully awake and oriented or at pre-proc level 03:45 PM 162 / 93 75 98 % 16 5 = Fully awake and oriented or at pre-proc level 04:00 PM 174 / 98 76 98 % 16 5 = Fully awake and oriented or at pre-proc level 04:15 PM 169 / 90 73 98 % 16 5 = Fully awake and oriented or at pre-proc level 04:35 PM 184 / 110 74 98 % 16 5 = Fully awake and oriented or at pre-proc level 05:15 PM 199 / 117 75 98 % 16 5 = Fully awake and oriented or at pre-proc level 05:20 PM 169 / 101 77 98 % 16 5 = Fully awake and oriented or at pre-proc level 05:30 PM 166 / 97 78 98 % 16 5 = Fully awake and oriented or at pre-proc level 05:45 PM 160 / 100 77 98 % 18 5 = Fully awake and oriented or at pre-proc level Procedural Medications Time Medication Dose Units Method Given By 02:19 PM Oxygen 2 L/min nasal cannula Jayden Colindres RN 02:19 PM Versed 2 mg Intravenous Jayden Colindres RN 02:33 PM Lidocaine 2% 10 ml Subcutaneous Winston Lainez DO 02:48 PM Heparin 5000 units Intravenous Jayden Colindres RN 03:08 PM Brilinta 180 mg Orally Jayden Colindres RN 04:49 PM Tylenol 650 mg Orally ASA Classification: CLASS III- Severe systemic disease (i.e. prior AMI, diabetes with vascular complications, morbid obesity) Vishnu Score Preprocedure Postprocedure Activity 2- Moves 4 extremities sustained head lift Activity 2- Moves 4 extremities sustained head lift Circulation 2- SBP +/= 20 points of pre-anesthetic level Circulation 2- SBP +/= 20 points of pre-anesthetic level Consciousness 2- Awake and alert oriented x 3 Consciousness 2- Awake and alert oriented x 3 O2 Saturation 2- Able to maintain O2 satruation of 92% on room air O2 Saturation 2- Able to maintain O2 satruation of 92% on room air Respiratory 2- Able to deep breathe and cough well Respiratory 2- Able to deep breathe and cough well Total Score 10 Total Score 10 Contrast Agent: Isovue Diagnostic Contrast: 190 ml Total Contrast: 190 ml Fluoro Dose: 1488 mGy Activated Clotting Time Time Seconds to Clot 03:02 PM 04:40 PM 152 Procedure Log Time Note Enter By 02:11 PM Pt arrived to hoisting laborer 2 at 14:12 [email or web address] 02:11 PM [facility] PM [place] and [facility] PM Sign in performed according to hospital policy. [email or web address] 02:12 PM Procedure start 14:12 [email or web address] 02:18 PM Adrian Dixon RN Position: Monitor Time in: :18 jcallan 02:18 PM Sukhjinder Heath RT (R) Position: Scrub Time in: :18 [facility] PM Jayden Colindres RN Position: Utility Operator Yarn Time in: :18 [facility] PM Joan Peter RT (R) Position: Monitor Time in: :[address] [facility] PM Patient charges- Angio tray pack, Navilyst 3mm J, Pulse Oximetry and ACIST tubing and transducer jcallan :18 PM Hair removed from procedure site in procedure lab using clippers. Bilateral groin prepped with Chloraprep by Joan Peter RT (R), then patient was draped. Skin intact. jcallihan :19 PM CathStat 02:19 PM Vitals capture started with the following parameters, Patient=Adult, Interval=5 min, Initial Mtqhudpc=173 mmHg, Deflation Rate=5 mmHg, Cuff placed on Right Arm : PM Time: 14: Patient comfortable and pain free: Yes jcallihan : PM Time: 14:LOC: 5 = Fully awake and oriented or at pre-proc level jcallihan : PM Time: 14: Oxygen on at 2 L/min per nasal cannula by Jayden Colindres [facility] : PM Time: 14: Versed 2 mg Intravenous Given by Jayden Colindres [facility] PM Clinical Presentation: [facility] PM Vitals capture started with the following parameters, Patient=Adult, Interval=5 min, Initial Djmajnum=983 mmHg, Deflation Rate=5 mmHg, Cuff placed on Right Arm 02:20 PM Recorded ECG: HR=84 Condition=Condition 1 02:21 PM HR=80 bpm, KIDT=329/95 mmhg, SpO2=99.0 %, Comment=nsr 02:22 PM Pressure channel 2 zeroed. 02:25 PM HR=80 bpm, AGZR=258/92 mmhg, SpO2=99.0 %, Comment=nsr 02:27 PM ASA Class CLASS III- Severe systemic disease (i.e. prior AMI, diabetes with vascular complications, morbid obesity) jcallihan 02:30 PM HR=79 bpm, GWAW=999/98 mmhg, SpO2=99.0 %, Comment=nsr 02:32 PM Time out performed according to hospital policy jcallihan 02:33 PM Time: 14:33 10 ml Lidocaine 2% to right groin Subcutaneous Given by Winston Lainez DO jcallihan 02:34 PM Time: 14:19 Patient comfortable and pain free: Yes jcallihan 02:34 PM Time: 14:19LOC: 4 = Oriented but drowsy jcallihan 02:35 PM HR=80 bpm, IJDR=155/93 mmhg, SpO2=98.0 %, Comment=nsr 02:36 PM Micro-Introducer Kit utilized for sheath placement jcallihan 02:36 PM Access obtained by percutaneous puncture. 6Fr 10cm Terumo [place] sheath placed in right Femoral artery. [id number] jcallihan 02:36 PM 6Fr FR 4 catheter inserted over the wire [facility] jcallihan 02:36 PM Catheter selectively placed in left ventricle jcallihan 02:36 PM Bolus angiogram of left Ventricle complete: hand injected 10 ml jcallihan 02:37 PM Recorded Pressure: LV, HR=87, Condition=Condition 1 (Left Ventricle) LV 127/24/125 02:37 PM Recorded Pressure: LV, Ao, HR=90, Condition=Condition 1 (Left Ventricle) LV 177/60/121, (Aorta) Ao 127/62/93 02:38 PM reposititioned to RCA jcallihan 02:38 PM RCA angiography performed in multiple views. [email or web address] 02:38 PM Catheter removed jcallihan 02:38 PM 6Fr FL 4 catheter inserted over the wire [facility] jcallihan 02:38 PM Recorded Pressure: Ao, HR=82, Condition=Condition 1 (Aorta) Ao 177/97/131 02:40 PM LCA angiography performed in multiple views. jcallihan 02:41 PM HR=78 bpm, BIZV=241/102 mmhg, SpO2=98.0 %, Comment=nsr 02:41 PM Recorded Pressure: Ao, HR=80, Condition=Condition 1 (Aorta) Ao 157/84/116 02:42 PM Catheter removed jcallihan 02:43 PM 6Fr XB LAD 3.5 Cordis guide catheter was used to cannulate the PCI vessel successfully. reused? No jcallihan 02:46 PM HR=84 bpm, UNVF=388/95 mmhg, SpO2=99.0 %, Comment=nsr 02:49 PM Time: 14:48 Heparin 5000 units Intravenous Given by Jayden Colindres RN jcallihan 02:49 PM Inflation device was opened. jcallihan 02:49 PM Time: 14:34LOC: 4 = Oriented but drowsy jcallihan 02:49 PM Time: 14:34 Patient comfortable and pain free: Yes jcallihan 02:49 PM .014 ChoICE PT Extra Support 300cm guide wire across target lesion- successful. reused? No jcallihan 02:50 PM Coronary Dominance: Left jcallihan 02:50 PM Lesion found in Proximal Circumflex. Pre Stenosis: 90 Pre RO Flow: 3: Complete and Brisk Flow/Perfusion jcallihan 02:50 PM Lesion found in Distal Circumflex. Pre Stenosis: 70 Pre RO Flow: 3: Complete and Brisk Flow/Perfusion jcallihan 02:51 PM HR=86 bpm, BPDC=064/99 mmhg, SpO2=99.0 %, Comment=nsr 02:51 PM Circumflex, Obtuse Marginal, Left Posterior Descending, and Left Posterolateral Coronary Arteries with 90 % stenosis. If graft is supplying this area, 0 % stenosis jcallihan 02:52 PM Recorded Pressure: Ao, HR=86, Condition=Condition 1 (Aorta) Ao 184/99/136 02:53 PM PCI Indication: PCI for high risk Non-STEMI or unstable angina jcallihan 02:53 PM PCI Status Urgent jcallihan 02:53 PM 2.5mm x 12mm Synergy drug-eluting stent across target lesion- successful Severino #[id number] jcallihan 02:54 PM Lesion found in 1st Marginal. Pre Stenosis: 70 Pre RO Flow: [email or web address] 02:54 PM Lesion found in 2nd Diagonal. Pre Stenosis: 50 Pre RO Flow: jcallihan 02:54 PM Stent deployed @ 14 sherine for 16 seconds jcallihan 02:55 PM Stent delivery system removed intact. jcallihan 02:55 PM Lesion found in Proximal RCA. Pre Stenosis: 100 Pre RO Flow: jcallihan 02:56 PM HR=83 bpm, JPUV=167/89 mmhg, SpO2=99.0 %, Comment=nsr 02:56 PM Mid/Distal Left Anterior Descending Coronary Artery and diagonal branches with 50% stenosis. If graft is supplying this area, 0 % stenosis jcallihan 02:57 PM Right Coronary, Right Posterior Descending Arteries with Right Posterolateral and Acute Marginal branches with 100 % stenosis. If graft is supplying this area, 0 % stenosis jcallihan 02:57 PM 3.0mm x 24mm Synergy drug-eluting stent across target lesion- successful Lot #[id number] jcallihan 02:58 PM Stent deployed @ 16 sherine for 17 seconds jcallihan 02:59 PM Stent delivery system removed intact. jcallihan 03:01 PM HR=83 bpm, KXZM=903/99 mmhg, MeT4=225.0 %, Comment=nsr 03:01 PM 3.5mm x 8mm Synergy drug-eluting stent across target lesion- successful Lot #[id number] jcallihan 03:01 PM Stent deployed @ 18 sherine for 20 seconds jcallihan 03:02 PM Stent delivery system removed intact. jcallihan 03:03 PM At 15:02 the ACT was >400 seconds. jcallihan 03:05 PM Time: 14:49 Patient comfortable and pain free: Yes jcallihan 03:05 PM Time: 14:49LOC: 4 = Oriented but drowsy jcallihan 03:06 PM HR=78 bpm, IFCB=709/93 mmhg, SpO2=97.0 % 03:06 PM Guide wire removed intact. jcallihan 03:06 PM Guide catheter removed intact. jcallihan 03:06 PM Groin shot obtained. jcallihan 03:06 PM Procedure completed at 15:06 jcallihan 03:06 PM Did you address RO flow and Dominance? Yes jcallihan 03:06 PM Sign out completed: Radiation Dose 1488 mGy Fluoro Time: 5.2 Isovue 370 - 200ml contrast 190 ml given by Winston Lainez DO. Complications: NoneCardiac Rehab Consult needed: YesConfirmed administered medications: Yes jcallihan 03:06 PM Isovue 370 - 200ml,1 Bottle(s) used. jcallihan 03:07 PM Sheath left in place to be pulled on floor/holding areaV+Pad jcallihan 03:07 PM Estimated Blood Loss: less than 20cc jcallihan 03:07 PM Post ECG NSR jcallihan 03:07 PM Post Blood Pressure 182/93 jcallihan 03:07 PM 15:07 Post Pulses Bilateral DP & PT 2+ jcallihan 03:07 PM Information taught Cardiac Cath and PCI jcallihan 03:07 PM Education needs Procedure, Plan of Care, and Responsibilities of Patient in Care jcallihan 03:07 PM Learning barriers :None jcallihan 03:08 PM Education Methods Verbal jcallihan 03:08 PM Education evaluation Able to repeat information jcallihan 03:08 PM Site status No bleeding/hematoma - Rt Groin as reported by Sukhjinder Heath RT (R) at 15:08 jcallihan 03:08 PM Opsite applied jcallihan 03:08 PM Plavix, Effient or Brilinta given Yes jcallihan 03:08 PM Family placed in consult room. jcallihan 03:08 PM Fluoro Time: 5.2 jcallihan 03:08 PM Isovue 370 - 200ml contrast 190 ml given by Winston Lainez. jcallihan 03:08 PM Radiation Dose 1488 mGy jcallihan 03:09 PM Time: 15:08 Brilinta 180 mg Orally Given by Jayden Colindres RN jcallihtabatha 03:11 PM QGDL=927/89 mmhg, Comment=nsr 03:11 PM Report given to Zena REYNOSO Pt taken to Holding room Room #14. 15:11 jcallihan 03:11 PM Patient out of room: 15:11 jcallihan 03:12 PM Vitals capture stopped. 03:33 PM Patient educated on post cath procedure and routine. Family at bedside. Drink provided. wilsonelle 04:49 PM Time: 16:49 Tylenol 650 mg Orally Given by sirena 04:49 PM Patient c/o headache 7/10. Tylenol given as per 's order. ittelle 05:03 PM 160/100BP, hemostasis obtained to Right femoral artery. Patient educated on post sheath pull. Patient verbalized understanding. sirena 05:08 PM Delay to floor Bed availability kwitte 05:15 PM Blood pressure 199/117. Dr. Lainez notified. new orders received per Joan Peter RT/Jose A RN. elle 05:15 PM Nitro 0.4mcg nitro spray SL given as per 's order. ittelle 05:20 PM 169/101 BP ittelle 05:20 PM Right femoral sheath pulled per Joan Peter RT. Manual pressure being held with Vpad at present. ittelle 05:21 PM 166/97 BP ittelle 05:50 PM Report given to Joya REYNOSO Pt taken to Holding room Room #[id number]. 17:58 ittelle 05:51 PM Complications: None itte 05:53 PM Patient out of room: 17:58 kwittelle Complications Complication None None Hemodynamics Pressures Site Systolic/A Wave Diastolic/V Wave Mean LV 127 24 125 LV 177 60 121 AO 127 62 93 AO 177 97 131 AO 157 84 116 AO 184 99 136 Post Procedure Information Blood Pressure: 182/93 mmHg Rhythm: NSR Post procedural instructions were given Site Checks Time Location Status Staff Sheath In? Note 03:08 PM Rt Groin No bleeding/hematoma Sukhjinder Heath RT (R) Yes 03:15 PM Rt Groin No bleeding/ No Hematoma Gerardo Hartman RN Yes 03:30 PM Rt Groin No bleeding/ No Hematoma Gerardo Hartman RN Yes 03:45 PM Rt Groin No bleeding/ No Hematoma Gerardo Hartman RN Yes 04:00 PM Rt Groin No bleeding/ No Hematoma Gerardo Hartman RN Yes 04:15 PM Rt Groin No bleeding/ No Hematoma Gerardo Hartman RN Yes 04:35 PM Rt Groin No bleeding/ No Hematoma Gerardo Hartman RN Yes 05:15 PM Rt Groin No bleeding/ No Hematoma Gerardo Hartman RN Yes 05:30 PM Rt Groin No bleeding/ No Hematoma [place], Joan RT (R) 05:45 PM Rt Groin No bleeding/ No Hematoma Sites, Joan RT (R) Pulses Time Site Pre-Procedure Post-Procedure Note Bilateral DP & PT 2+ 3:07:00 PM Bilateral DP & PT 2+ 01/28/2018 3:30:00 PM Bilateral DP & PT 2+ 01/28/2018 5:00:00 PM Bilateral DP 2+ Updated by Gerardo Hartman RN on 01/28/2018 6:01:55 PM Gerardo Hartman RN electronically signed on 01/28/2018 6:02:16 PM with status of Final
[2018-01-28] MEDS ORDERED: *HR* LORazepam 2 MG/ML VIAL IVP ONE (18:15)
[2018-01-28] MEDS ORDERED: Nitroglycerin 25 MG/250 ML INFUS..BTL IVC SCH ×2 (19:00→19:30)
[2018-01-28] MEDS ORDERED: Nitroglycerin 25 MG/250 ML INFUS..BTL IVC ONE (19:20)
[2018-01-28] MEDS ORDERED: *HR* Morphine 2 MG/ML SYRINGE IVP ONE ×2 (19:27→20:16)
[2018-01-28] MEDS ORDERED: Mag Hydrox/Al Hydrox/Simeth 30 ML UDC PO STA (20:14)
[2018-01-28] MEDS: *HR* Ticagrelor 90 MG TABLET PO SCH (20:37)
[2018-01-28] MEDS: Metoprolol XL (24 HR) Succ 50 MG TAB.ER.24H PO SCH (20:37)
--- NOTE | 2018-01-28 22:50 | Internal Med Progress Note ---
Date of Encounter: 01/28/18 Time of Encounter: 21:57 - Assessment and plan (1) NSTEMI (non-ST elevated myocardial infarction) Current Visit: Yes Status: Acute Assessment and plan: Cardiology consulted; appreciate input. S/P [facility] with 3 stents today. Continue telemetry. Continue herpain and nitro drips. Continue morphine PRN pain. Continue home medications. (2) CKD (chronic kidney disease) stage 3, GFR 30-59 ml/min Current Visit: Yes Status: Acute Assessment and plan: Likely RONI on CKD. Creatinine improved today. Nephrology consulted; appreciate input. Avoid nephrotoxins when possible. Continue IVF per nephrology. Holding lasix and ARB for now. On mucomyst. Consider restarting losartan tomorrow. Adjusted metoprolol dose to home dose. Continue hydralazine PRN for HTN. (3) Hypertension Current Visit: Yes Status: Chronic Assessment and plan: Continue home BP medications. Continue PRN hydralazine. Qualifiers: Hypertension type: essential hypertension Qualified Code(s): I10 - Essential (primary) hypertension (4) Diabetes mellitus Current Visit: Yes Status: Chronic Assessment and plan: Continue home long-acting insulin at reduced dose. Continue accuchecks and SSI QID AC/HS. Qualifiers: Diabetes mellitus type: type 2 Diabetes mellitus microbiology quality control technician insulin use: with chcf use Diabetes mellitus complication status: with kidney complications Diabetes mellitus complication detail: with chronic kidney disease Chronic kidney disease stage: stage 3 (moderate) Qualified Code(s): E11.22 - Type 2 diabetes mellitus with diabetic chronic kidney disease; N18.3 - Chronic kidney disease, stage 3 (moderate); N18.3 - Chronic kidney disease, stage 3 (moderate); Z79.4 - nursing home (current) use of insulin; Z79.4 - nursing home (current) use of insulin; Z79.4 - nursing home (current) use of insulin; Z79.4 - cctv technician (current) use of insulin (5) Hyperlipidemia Current Visit: Yes Status: Acute Assessment and plan: Continue home medications. Qualifiers: Hyperlipidemia type: unspecified Qualified Code(s): E78.5 - Hyperlipidemia , unspecified (6) Anxiety and depression Current Visit: No Status: Chronic Assessment and plan: Continue home medications. (7) DVT prophylaxis Current Visit: No Status: Acute Assessment and plan: Continue heparin drip. - Time Spent With Patient Total time spent is greater than 50% in coordination of care (as documented) at patient's floor/unit and/or counseling patient: less than 15 minutes - Subjective Interval history: Patient had no acute events overnight. 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 He is still having mild chest pain tonight; improve with nitro and morphine. He denies SOB, fever, chills, nausea , or vomiting. She has no other complaints at this time. - Constitutional Vitals: Temp Pulse Resp BP Pulse Ox 98.9 F 73 18 121/73 97 01/28/18 21:29 01/28/18 21:29 01/28/18 21:29 01/28/18 21:29 01/28/18 21:29 General appearance: Present: cooperative, A&O X 3, no acute distress, obese, answers questions appropriately - Respiratory Respiratory exam: Present: CTAB. Absent: accessory muscle use, rales, rhonchi, wheezes Additional comments: Normal WOB - Cardiovascular Cardiovascular exam: Present: RRR, +S1, +S2. Absent: diastolic murmur, gallop, rubs, systolic murmur Additional comments: No BLE edema - GI/Abdominal GI/Abdominal exam: Present: normal bowel sounds, soft. Absent: distended, hepatomegaly, mass, splenomegaly, tenderness - Psychiatric Psychiatric exam: Present: normal affect, normal mood. Absent: agitated, anxious, depressed - Skin Skin exam: Present: dry, intact, warm. Absent: cyanosis, rash Internal Medicine: Result - Labs CBC & Chem 7: 01/28/18 06:31 01/28/18 06:31 Labs: Short CBC 01/28/18 Range/Units 06:31 WBC 7.8 (4.3-11.1) K/mcL Hgb 12.9 (12.9-16.9) g/dL Hct 38.2 (37.5-50.1) % Plt Count 208 (140-400) K/mcL BMP 01/28/18 06:31 Sodium 137 Potassium 3.1 L Chloride 102 Carbon Dioxide 23 BUN 35 H Creatinine 2.11 H Glucose 246 H Calcium 9.1 Cardiac Enzymes 01/27/18 Range/Units 22:39 Troponin I 6.72 H* (< 0.04) ng/mL - ABG Interpretation ABG results: PT/INR, D-dimer PT 10.1 Seconds (9.4-12.1) 01/27/18 11:34 Consult Discharge Plan - Plan Referrals: Getachew Judd, [Primary Care Provider] -
[2018-01-29 05:15] LABS: Basophils # 0.1 K/mcL (0.0-0.2); Basophils % 0.5 %; Eosinophils # 0.1 K/mcL (0.0-0.6); Eosinophils % 1.3 %; Hematocrit 36.2 % (37.5-50.1); Hemoglobin 12.1 g/dL (12.9-16.9); Immature Granulocytes % 2.1 % (0-4); Lymphocytes # 1.3 K/mcL (0.6-4.6); Lymphocytes % 14.2 %; Mean Corpuscular HGB Conc 33.4 g/dL (31.6-35.5); Mean Corpuscular Hemoglobin 30.6 pg (28.0-33.3); Mean Corpuscular Volume 91.6 fL (83.0-100.0); Mean Platelet Volume 10.7 fL (9.4-12.4); Monocytes # 0.9 K/mcL (0.0-1.3); Monocytes % 9.6 %; Neutrophils # 6.7 K/mcL (1.6-8.9); Platelet Count 238 K/mcL (140-400); Red Blood Count 3.95 M/mcL (4.19-5.50); Red Cell Distribution Width 14.1 % (11.5-14.5); Segmented Neutrophils % 72.3 %
[2018-01-29 05:33] LABS: Calcium 8.8 mg/dL (8.6-10.3); Potassium 3.3 mEq/L (3.5-5.1)
--- NOTE | 2018-01-29 08:28 | Cardiology Progress Note ---
Date of Encounter: 01/29/18 Time of Encounter: 08:25 Assessment and Plan (1) NSTEMI (non-ST elevated myocardial infarction) Current Visit: Yes Status: Acute Per Cardiology: LBBB diagnosed 08/2017 that was new. Currently no LBBB noted, intermittent LBBB. Peak Trop 6.92. S/p [facility]: Impressions: There is severe two vessel coronary artery disease. The left ventricle is normal and has mildly Abnormal contractility EF 45% Patient had successful PTCA/Drug-Eluting Stent placement in the distal and proximal Circ. Lesion Findings/Interventions * Left Main Coronary Artery The LMCA is angiographically free of disease. * Left Anterior Descending There is a 50% stenosis in the Proximal 2nd Diagonal. * Circumflex There is a 32 mm long, 90% stenosis in the Proximal Circumflex. The lesion has a RO flow of 3. An intervention was performed on the Proximal Circumflex with a final stenosis of 0%. There were no lesion complications. The final RO flow was 3. There is a 12 mm long, 70% stenosis in the Distal Circumflex. The lesion has a RO flow of 3. An intervention was performed on the Distal Circumflex with a final stenosis of 0%. There were no lesion complications. The final RO flow was 3. There is a 70% stenosis in the proximal 1st Marginal. * Right Coronary Artery There is a 100% stenosis in the Proximal RCA. Fills via L to R collaterals. Kidney function remains stable and around baseline post procedure. On aspirin, statin, beta romie, Brilinta. We will discontinue nitro drip (CP free) and IV heparin drip. Recommend discharge with SL NTG pills. Post procedure and post CT education provided. Cardiology will sign off, reconsult as needed, and follow-up arranged. All questions answered. Has CR c/s. Patient aware to not discontinue aspirin or Brilinta unless instructed by cardiology-- assistance card provided. Discussion w patient/family: The assessment and plan as outlined above was discussed with the patient and/or family members who expressed understanding and agreement. All questions were answered. Thank you for involving us in the care of your patient. Please call with any questions. Subjective Principal diagnosis: CKD and NSTEMI Interval history: Denies any chest pain, shortness of breath, palpitations. Denies any right groin concerns. Objective Vital Signs, Last 4 Hours BP 01/29/18 05:59 132/86 Selected Entries 01/29/18 03:49 01/29/18 05:59 Temperature 98.8 F Pulse Rate 77 Respiratory Rate 17 Blood Pressure 132/86 O2 Sat by Pulse Oximetry 98 Oxygen Delivery Method Room Air General: Conversant, No Apparent Distress HEENT: Atraumatic, Normocephaly, Mucus Membranes Moist Neck: No JVD, Normal carotid pulses Cardiac: Reg Rate and Rhythm, Normal S1 and S2, No Murmur Lungs: Normal Breath Sounds, No Wheeze, Rales, Rhonchi Neuro: Alert and responsive, No focal deficits noted Abdomen: Soft, Non-Tender Skin: No rashes noted on visualized skin, Other (Right groin site trying intact , no hematoma, and very mild ecchymosis, no bleeding, right DP and PT pulses are 1+ palpable) Musculoskeletal: No Chest Wall Tenderness Extremities: No Clubbing, No Cyanosis, No Edema, Normal Pulses Results 01/29/18 04:05 01/29/18 04:05 Lab Results Laboratory Tests 01/27/18 01/29/18 17:36 04:05 Creatinine 2.30 H Est GFR (Non-Af Amer) 29 L Troponin I 6.92 H* ITS Impressions Chest X-Ray 01/27/18 11:03 IMPRESSION: No acute process. D/ / Omid Armendariz MD / Omid Armendariz MD Interpreting Provider: Omid Armendariz MD Echocardiogram 01/27/18 14:42 Impressions: LVEF 50-55%. Normal LV chamber size, wall thickness and function. Pseudonormal left ventricular diastolic dysfunction. Normal right ventricular structure and function. No evidence of pulmonary hypertension. No significant valvular dysfunction. Left Ventricular Wall Motion: Rest Echo Findings All wall segments showed normal motion. Findings: Study Quality * Technically adequate exam. ECG Findings * Normal sinus rhythm. Left Ventricle * LVEF 50-55%. * Normal LV chamber size, wall thickness and function. * Pseudonormal left ventricular diastolic dysfunction. Right Ventricle * Normal right ventricular structure and function. Left Atrium * Mildly dilated left atrium. Right Atrium * Mildly dilated right atrium. Interatrial Septum * Interatrial septum not well evaluated. Aortic Valve * Trileaflet aortic valve with normal function. * No aortic regurgitation. * No aortic stenosis. Mitral Valve * Normal mitral valve structure and function. * Trace mitral regurgitation. * No mitral stenosis. Tricuspid Valve * Normal tricuspid valve structure and function. * Trace tricuspid regurgitation. * No evidence of pulmonary hypertension. Pulmonic Valve * Normal pulmonic valve structure and function. * No pulmonic regurgitation. Aorta * Normally sized aortic root. Pericardium * The pericardium appears normal. IVC * Normal IVC dimensions and inspiratory collapse. Pulmonary Artery * Normal visualized portions of the main pulmonary artery. Active Medications Acetaminophen (Tylenol) 650 mg PO Q6HR PRN PRN Reason: Mild Pain Stop: 07/29/18 20:19 Last Admin: 01/28/18 09:09 Dose: 650 mg Acetylcysteine (Acetylcysteine 20%) 600 mg PO BID [facility] Stop: 07/30/18 14:46 Last Admin: 01/28/18 20:38 Dose: 600 mg Allopurinol (Zyloprim) 300 mg PO DAILY [facility] Stop: 07/30/18 09:01 Last Admin: 01/28/18 08:03 Dose: 300 mg Amlodipine Besylate (Norvasc) 10 mg PO DAILY [facility] Stop: 07/30/18 09:01 Last Admin: 01/28/18 08:02 Dose: 10 mg Aspirin (Aspirin Ec) 81 mg PO DAILY [facility] Stop: 07/30/18 09:01 Last Admin: 01/28/18 08:02 Dose: 81 mg Atorvastatin Calcium (Lipitor) 10 mg PO QPM [facility] Stop: 07/29/18 18:01 Last Admin: 01/28/18 20:37 Dose: 10 mg Clonazepam (Klonopin) 0.5 mg PO BID [facility] Stop: 07/29/18 21:01 Last Admin: 01/28/18 20:37 Dose: 0.5 mg Dextrose/Water (Dextrose 50% (Syg)) 25 ml IVP AD PRN PRN Reason: Hypoglycemia Stop: 07/29/18 14:45 Fenofibrate (Tricor) 135 mg PO DAILY [facility] Stop: 07/30/18 09:01 Last Admin: 01/28/18 08:02 Dose: 135 mg Glucagon (Glucagen) 1 mg IM ONCE PRN PRN Reason: Hypoglycemia Stop: 07/29/18 14:45 Glucose (Gluctose) 15 gm PO ONCE PRN PRN Reason: Hypoglycemia Stop: 07/29/18 14:45 Glucose (Gluctose) 30 gm PO ONCE PRN PRN Reason: Hypoglycemia Stop: 07/29/18 14:45 Heparin Sodium (Porcine) (Heparin) 4,000 unit IVP Q6HR PRN PRN Reason: SEE COMMENTS Stop: 07/29/18 12:57 Last Admin: 01/28/18 08:06 Dose: 4,000 unit Heparin Sodium (Porcine) (Heparin) 2,000 unit IVP Q6H PRN PRN Reason: SEE COMMENTS Stop: 07/29/18 12:57 Hydralazine HCl (Hydralazine) 10 mg IVP Q6HR PRN PRN Reason: Hypertension Stop: 07/29/18 14:45 Last Admin: 01/28/18 18:30 Dose: 10 mg Heparin Sodium/Dextrose (Heparin 25,000 Unit/500 Ml D5w) 25,000 unit in 500 mls @ 27.216 mls/hr IVC .[id number] [facility]; 12 UNIT/KG/HR PRN Reason: Protocol Stop: 07/29/18 13:01 Last Admin: 01/28/18 09:20 Dose: 16 unit/kg/hr, 36.287 mls/hr Dextrose (Dextrose 5%) 1,000 mls @ 100 mls/hr IVC .Q10H PRN PRN Reason: HYPOGLYCEMIA Stop: 07/29/18 14:45 Sodium Chloride (0.9 % Sodium Chloride) 1,000 mls @ 100 mls/hr IVC .Q10H [facility] Stop: 07/30/18 15:16 Nitroglycerin (Nitroglycerin Premix 25 Mg/250 Ml) 25 mg in 250 mls @ 3 mls/hr IVC .Q24H [facility]; 5 MCG/MIN PRN Reason: Protocol Stop: 07/30/18 19:31 Last Titration: 01/29/18 03:42 Dose: 15 mcg/min, 9 mls/hr Insulin Detemir (Levemir) 30 unit SQ BID [facility] Stop: 07/29/18 21:01 Last Admin: 01/28/18 22:07 Dose: 30 unit Insulin Human Lispro (Humalog) 0 units SQ HS [facility] PRN Reason: Protocol Stop: 07/29/18 21:01 Last Admin: 01/28/18 22:07 Dose: Not Given Insulin Human Lispro (Humalog) 0 units SQ TIDAC [facility] PRN Reason: Protocol Stop: 07/29/18 16:31 Last Admin: 01/28/18 22:08 Dose: Not Given Metoprolol Succinate (Toprol Xl) 200 mg PO BID [facility] Stop: 07/30/18 21:01 Last Admin: 01/28/18 20:37 Dose: 200 mg Naloxone HCl (Narcan) 0.4 mg IVP Q2MIN PRN PRN Reason: SEE COMMENTS Stop: 07/29/18 14:41 Tamsulosin HCl (Flomax) 0.4 mg PO DAILY [facility] PRN Reason: Protocol Stop: 07/30/18 09:01 Last Admin: 01/28/18 08:03 Dose: 0.4 mg Ticagrelor (Brilinta) 90 mg PO BID [facility] Stop: 07/30/18 21:01 Last Admin: 01/28/18 20:37 Dose: 90 mg - Imaging and Cardiology Cardiac cath: report reviewed Consult Discharge Plan - Plan Referrals: Getachew Judd DO [Primary Care Provider] -
[2018-01-29] MEDS: Insulin DETEMIR 100 UNIT/ML X5UNITS SQ SCH (08:45)
[2018-01-29] MEDS: Insulin LISPRO 300 UNITS/3 ML VIAL SQ SCH ×2 (08:45→11:35)
[2018-01-29] MEDS: *HR* Acetylcysteine 20% 600 MG/3 ML ORAL SYRINGE PO SCH (08:46)
[2018-01-29] MEDS: clonazePAM 0.5 MG TABLET PO SCH (08:47)
[2018-01-29] MEDS: Metoprolol XL (24 HR) Succ 50 MG TAB.ER.24H PO SCH (08:47)
[2018-01-29] MEDS: Fenofibrate 54 MG TABLET PO SCH (08:47)
[2018-01-29] MEDS: amLODIPine 5 MG TABLET PO SCH (08:47)
[2018-01-29] MEDS: *HR* Ticagrelor 90 MG TABLET PO SCH (08:47)
[2018-01-29] MEDS: Aspirin Enteric Coated 81 MG Tablet PO SCH (08:47)
[2018-01-29 11:03] VITALS: BP 136/77
--- NOTE | 2018-01-29 13:14 | Discharge Summary ---
- NOTES TO OUTPATIENT PROVIDER Notes to Outpatient Provider: Follow up with PCP in 2-3 days after discharge. Recheck BMP at that time (hypokalemia and CKD). Send BMP results to mill house supervisor. Follow up with health inspector food and mill house supervisor as directed. Orders not resulted at time of discharge: Pending orders 01/28/18 15:18 ECG 12 lead ECG [ECG] Routine 01/30/18 04:00 Magnesium AM 0400 Date of Encounter: 01/29/18 Time of Encounter: 13:12 - Discharge Diagnosis (1) NSTEMI (non-ST elevated myocardial infarction) Priority: Primary Status: Acute (2) CKD (chronic kidney disease) stage 3, GFR 30-59 ml/min Priority: Secondary Status: Acute (3) Hypertension Priority: Secondary Status: Chronic Qualifiers: Hypertension type: essential hypertension Qualified Code(s): I10 - Essential (primary) hypertension (4) Diabetes mellitus Priority: Secondary Status: Chronic Qualifiers: Diabetes mellitus type: type 2 Diabetes mellitus extermination inspector insulin use: with correction use Diabetes mellitus complication status: with kidney complications Diabetes mellitus complication detail: with chronic kidney disease Chronic kidney disease stage: stage 3 (moderate) Qualified Code(s): E11.22 - Type 2 diabetes mellitus with diabetic chronic kidney disease; N18.3 - Chronic kidney disease, stage 3 (moderate); N18.3 - Chronic kidney disease, stage 3 (moderate); Z79.4 - termite treater (current) use of insulin; Z79.4 - termite treater (current) use of insulin; Z79.4 - custodial (current) use of insulin; Z79.4 - termite treater (current) use of insulin (5) Hyperlipidemia Priority: Secondary Status: Acute Qualifiers: Hyperlipidemia type: unspecified Qualified Code(s): E78.5 - Hyperlipidemia , unspecified (6) Anxiety and depression Priority: Secondary Status: Chronic (7) Hypokalemia Priority: Secondary Status: Acute (8) DVT prophylaxis Priority: Secondary Status: Acute Hospital course: Mr. Pitts is a 57 year old white male admitted for NSTEMI. He was admitted to general medical floor with telemetry. Troponin was trended and was 6.72 at 12 hours. Cardiology was consulted. He was taken for [facility]. He was found to have severe two vessel CAD. Stents were placed in the distal and proximal circ. He will continue aspirin and brilinta. Chest pain has resolved. He has history of CKD. Nephrology was consulted. Potassium was repleted for hypokalemia. He will follow up with PCP in 2-3 days after discharge. BMP will be checked at that time to monitor hypokalemia and CKD. Labwork will be forwarded to mill house supervisor. I spoke with nephrology today, and they are ok with discharge as long as labwork is forwarded and he follows up with them as directed. Cardiology signed off on patient this morning, and he will follow up with them in clinic as directed. Patient has met maximum benefit of this hospitalization and will be discharged home in stable condition. Discharge discussed with: patient, family, nurse, business sales consultant (Pilates Coordinator), other (Pharmacist) - Time Spent with Patient Total time spent providing and/or coordinating discharge services: Greater than 30 minutes - Discharge Medications Prescriptions: Ticagrelor [Brilinta] 90 mg PO BID 7 Days #14 tablet Home Medications: Allopurinol [Zyloprim 300 MG] 300 mg PO DAILY 08/16/17 [History] Amlodipine Besylate 10 mg PO DAILY 08/16/17 [History] Aspirin [Lo-Dose Aspirin EC] 81 mg PO DAILY 08/16/17 [History] Cholecalciferol (D-3) [Vitamin D] 5,000 unit PO DAILY 08/16/17 [History] Escitalopram [Lexapro] 20 mg PO DAILY 08/16/17 [History] Fenofibrate Nanocrystallized [Tricor] 145 mg PO DAILY 08/16/17 [History] Finasteride [Proscar] 5 mg PO DAILY 08/16/17 [History] Insulin ASPART [Novolog] 5 - 15 unit SQ TIDWM 08/16/17 [History] Insulin DETEMIR [Levemir Flextouch] 40 unit SQ HS 08/16/17 [History] Insulin DETEMIR [Levemir Flextouch] 50 unit SQ QAM 08/16/17 [History] Tamsulosin [Flomax] 0.4 mg PO DAILY 08/16/17 [History] clonazePAM [Klonopin] 0.5 mg PO BID 08/16/17 [History] Potassium Chloride 10 meq PO BIDWM #60 tab.er.prt 08/20/17 [Rx] Furosemide [Lasix] 40 mg PO BID 01/27/18 [History] Losartan Potassium [Cozaar] 50 mg PO DAILY 01/27/18 [History] Lovastatin 40 mg PO QPM 01/27/18 [History] Metoprolol Succinate 200 mg PO BID 01/27/18 [History] Ticagrelor [Brilinta] 90 mg PO BID 7 Days #14 tablet 01/29/18 [Rx] Allergies/Adverse Reactions: 3 Allergy/AdvReac Type Severity Reaction Status Date / Time No Known Allergies Allergy Verified 01/05/17 18:47 Date of admission: 01/27/18 15:38 Primary care physician: Getachew Judd DO Consults: 01/28/18 07:58 Consult to Cardiac Rehabilitation-Phase1 [CONS] Routine Comment: Reason for Consult: NSTEMI Call Completed: No 01/28/18 15:18 Consult to Cardiac Rehabilitation-Phase1 [CONS] Routine Comment: Reason for Consult: AMI Call Completed: Yes Consult to Nurse Navigator [CONS] Routine Comment: Cardiology Nephrology Discharging clinician: Darin Gutierrez Anticipated date of discharge: 01/29/18 - Constitutional Vitals: Temp Pulse Resp BP Pulse Ox 98.6 F 78 16 136/77 97 01/29/18 11:02 01/29/18 11:02 01/29/18 11:02 01/29/18 11:02 01/29/18 11:02 General appearance: Present: cooperative, A&O X 3, no acute distress, obese, answers questions appropriately - Respiratory Respiratory exam: Present: CTAB. Absent: accessory muscle use, rales, rhonchi, wheezes Additional comments: Normal WOB - Cardiovascular Cardiovascular exam: Present: RRR, +S1, +S2. Absent: diastolic murmur, gallop, rubs, systolic murmur Additional comments: No BLE edema - GI/Abdominal GI/Abdominal exam: Present: normal bowel sounds, soft. Absent: distended, hepatomegaly, mass, splenomegaly, tenderness - Psychiatric Psychiatric exam: Present: normal affect, normal mood. Absent: agitated, anxious, depressed - Skin Skin exam: Present: dry, intact, warm. Absent: cyanosis, rash - Patient Status Disposition: Home, Self-Care Condition: Good Functional capacity at discharge: independent ambulation Overall status at discharge: patient is back to baseline - Discharge Instructions Follow Up With: Getachew Judd DO [Primary Care Provider] - Additional Instructions: Follow up with PCP in 2-3 days after discharge. Recheck BMP at that time ( hypokalemia and CKD). Send BMP results to mill house supervisor. Follow up with health inspector food and mill house supervisor as directed. - Diet and Activity Activity: resume usual activities as tolerated Diet: diabetic diet, low fat, low cholesterol, low salt diet, other (Cardiac Diet)
--- NOTE | 2018-01-29 13:51 | Nephrology Progress Note ---
Date of Encounter: 01/29/18 Time of Encounter: 13:48 - Assessment and Plan (1) CKD (chronic kidney disease) stage 3, GFR 30-59 ml/min Current Visit: Yes Status: Acute Patient seen for chronic kidney disease management in the face of iodinated contrast dye. He is status post cardiac catheterization. His creatinine is minimally elevated. The patient was to go home and is agreeable to having his labs drawn on Thursday to ensure that his renal function is not worsening. If he is discharged today he should have a BMP drawn on Thursday with labs sent to his primary care provider and to [place] [facility] specialist. (2) NSTEMI (non-ST elevated myocardial infarction) Current Visit: Yes Status: Acute Status post PTCA with stent placement. Per cardiology. Subjective Principal diagnosis: CKD and NSTEMI Interval history: The patient was seen. He has no new complaint. He is eating and drinking well. He wants to go home today. Objective - Vital Signs Vital signs: Vital Signs Temp Pulse Resp BP Pulse Ox 01/29/18 11:02 98.6 F 78 16 136/77 97 01/29/18 09:13 96 01/29/18 08:28 98.3 F 71 15 145/89 96 01/29/18 05:59 132/86 01/29/18 03:49 98.8 F 77 17 168/89 98 01/29/18 02:11 158/94 01/29/18 00:27 98.8 F 71 18 145/76 97 01/28/18 21:29 98.9 F 73 18 121/73 97 01/28/18 19:28 89 160/90 96 01/28/18 18:55 87 166/89 96 01/28/18 18:34 83 173/93 97 01/28/18 18:12 83 182/113 98 01/28/18 18:11 83 196/111 99 01/28/18 17:58 80 167/95 Intake and Output 01/28/18 01/29/18 01/29/18 23:59 07:59 15:59 Intake Total 240 / 240 30 / 30 506 / 506 Balance 240 / 240 30 / 30 506 / 506 Intake: IV Fluids 30 / 30 146 / 146 Nitroglycerin Premix 25 MG/250 30 / 30 46 / 46 ML 25 mg In 250 ml @ 5 MCG/MIN 3 mls/hr IVC .Q24H [facility] Rx#: [id number] Potassium Chloride 10 mEq/100mL 100 / 100 10 meq In 100 ml @ 100 mls/hr IVPB Q1H [facility] Rx#:[id number] Oral 240 / 240 360 / 360 Other: Meal Lunch Percent of Meal Consumed 100% Weight 116.5 kg Blood Glucose* 183 266 Patient Weight 01/29/18 23:59 Weight 116.5 kg - General Appearance General appearance: Present: well-developed, well-nourished, obese EENT: Present: ATNC Cardiology: Present: regular rate Neurologic: Present: alert and oriented x3 Psychiatric: Present: mood/affect appropriate - Lab 01/29/18 04:05 01/29/18 04:05 Most recent lab results Calcium 8.8 mg/dL (8.6-10.3) 01/29/18 04:05 Consult Discharge Plan - Plan Instructions: Ticagrelor (By mouth), Myocardial Infarction (DC) Additional Instructions: Follow up with PCP in 2-3 days after discharge. Recheck BMP at that time ( hypokalemia and CKD). Send BMP results to granulizing machine operator. Follow up with maintenance mechanic telephone and granulizing machine operator as directed. Referrals: Getachew Judd DO [Primary Care Provider] - (Thursday02/03/18 1:00 PM) Prescriptions: Ticagrelor [Brilinta] 90 mg PO BID 7 Days #14 tablet
--- NOTE | 2018-01-29 19:22 | Electrocardiograph Report ---
[address] [place] [address] Test Date: 2018-01-29 Pat Name: Solo Pitts Department: 112 Room: 2A Gender: M Senior Quality Control Technician: TAM : 1960 Requested By: Winston Lainez Order Number: [id number] Reading MD: Jennifer Carr Measurements Intervals [place] Rate: 70 P: 43 VA: 134 QRS: 44 QRSD: 102 T: 32 QT: 405 QTc: 426 Interpretive Statements SINUS RHYTHM POSSIBLE INFERIOR MYOCARDIAL INFARCTION, PROBABLY OLD WITH POSTERIOR EXTENSION Electronically Signed On 01-29-2018 19:21:22 EDT by Jennifer Carr
--- NOTE | 2018-01-29 19:23 | Electrocardiograph Report ---
[address] [address] Test Date: 2018-01-29 Pat Name: Solo Pitts Department: 112 Room: 2A37 Gender: M Liner Worker: TAM : 1960 Requested By: Roxane Brown Order Number: [id number] Reading MD: Jennifer Carr Measurements Intervals [place] Rate: 74 P: 50 FL: 135 QRS: 46 QRSD: 102 T: 13 QT: 412 QTc: 440 Interpretive Statements SINUS RHYTHM ST DEVIATION AND MODERATE T-WAVE ABNORMALITY, CONSIDER ANTEROLATERAL ISCHEMIA Electronically Signed On 01-29-2018 19:21:28 EDT by Jennifer Carr
--- NOTE | 2018-01-29 19:26 | Electrocardiograph Report ---
[place] [address] Test Date: 2018-01-28 Pat Name: Solo Pitts Department: 112 Room: 2A Gender: M Pattern Stamper: : 1960 Requested By: Winston Lainez Order Number: [id number] Reading MD: Jennifer Carr Measurements Intervals [place] Rate: 80 P: 49 MA: 155 QRS: 55 QRSD: 110 T: 40 QT: 386 QTc: 421 Interpretive Statements SINUS RHYTHM NONSPECIFIC ST & T-WAVE ABNORMALITY Electronically Signed On 01-29-2018 19:24:18 EDT by Jennifer Carr
--- NOTE | 2018-01-30 16:27 | Electrocardiograph Report ---
[place] [address] Test Date: 2018-01-27 Pat Name: Solo Pitts Department: 104 Room: 2A Gender: M Card Services Specialist: CHANTALE : 1960 Requested By: Arnulfo Roy Order Number: [id number] Reading MD: Jennifer Carr Measurements Intervals [place] Rate: 74 P: 9 CO: 154 QRS: 45 QRSD: 98 T: 46 QT: 388 QTc: 415 Interpretive Statements SINUS RHYTHM LEFT VENTRICULAR HYPERTROPHY AND ST-T CHANGE [VOLTAGE CRITERIA PLUS ST/T ABNORMALITY] Electronically Signed On 01-30-2018 16:26:10 EDT by Jennifer Carr
--- NOTE | 2018-01-30 16:34 | Electrocardiograph Report ---
[place] [address] Test Date: 2018-01-27 Pat Name: Solo Pitts Department: 104 Room: 2A Gender: M Lidar Scientist: CHANTALE : 1960 Requested By: Arnulfo Roy Order Number: [id number] Reading MD: Jennifer Carr Measurements Intervals [place] Rate: 68 P: 8 [place]: 167 QRS: 52 QRSD: 99 T: 31 QT: 392 QTc: 410 Interpretive Statements SINUS RHYTHM LEFT VENTRICULAR HYPERTROPHY AND ST-T CHANGE [VOLTAGE CRITERIA PLUS ST/T ABNORMALITY] Electronically Signed On 01-30-2018 16:32:25 EDT by Jennifer Carr
== END 2018-01-29 14:15 | disposition home or self-care (01) | DRG 247 ==
LOC: 2ANU 10:58 → EMEROO 10:58 → 2ANU 14:03
PROVIDERS: ADMIT Registered Nurse; ATTEND Registered Nurse

== ENCOUNTER 2019-08-19 21:35 | Inpatient (IN) ==
[2019-08-19] MEDS ORDERED: Ipratropium/Albuterol Neb 3 ML ONE (21:54)
[2019-08-19] MEDS ORDERED: Furosemide 40 MG/4 ML VIAL IVP ONE (22:09)
[2019-08-19 22:16] LABS: Basophils # 0.1 K/mcL (0.0-0.2); Basophils % 0.4 %; Eosinophils # 0.2 K/mcL (0.0-0.6); Eosinophils % 1.4 %; Hematocrit 41.7 % (37.5-50.1); Immature Granulocytes % 0.8 % (0-4); Lymphocytes # 0.8 K/mcL (0.6-4.6); Mean Corpuscular HGB Conc 34.3 g/dL (31.6-35.5); Mean Corpuscular Hemoglobin 32.1 pg (28.0-33.3); Mean Corpuscular Volume 93.5 fL (83.0-100.0); Mean Platelet Volume 11.1 fL (9.4-12.4); Monocytes # 0.6 K/mcL (0.0-1.3); Monocytes % 4.1 %; Neutrophils # 13.6 K/mcL (1.6-8.9); Platelet Count 223 K/mcL (140-400); Red Blood Count 4.46 M/mcL (4.19-5.50); Red Cell Distribution Width 14.2 % (11.5-14.5); Segmented Neutrophils % 88.3 %
[2019-08-19 22:16] LABS: VBG HCO3 23 mEq/L (21-27); VBG PCO2 50 mmHg (41-51); VBG PH 7.27 pH Units (7.32-7.42); VBG PO2 158 mmHg (25-50)
[2019-08-19 22:20] LABS: ABG Base Excess -3 mEq/L (-2 to 3); ABG HCO3 22 mEq/L (21-27); ABG Oxygen Saturation 96 % (95-98); ABG PCO2 39 mmHg (35-45); ABG PH 7.36 pH Units (7.32-7.45); ABG PO2 86 mmHg (85-104); ABG TCO2 23 mEq/L (20-26); Blood Gas Modality BiLevel
[2019-08-19 22:24] LABS: Hemoglobin 14.3 g/dL (12.9-16.9); White Blood Count 15.4 K/mcL (4.3-11.1)
[2019-08-19] MEDS: Nitroglycerin 0.4 MG TAB.SUBL SL SCH (22:31)
[2019-08-19 22:32] LABS: INR 1.1; Prothrombin Time 12.2 Seconds (9.4-12.1)
[2019-08-19 22:35] LABS: Activated Partial Thrombo Time 31.5 Seconds (26.0-36.0)
[2019-08-19 22:36] LABS: BUN/Creatinine Ratio 18 (6-26); Blood Urea Nitrogen 42 mg/dL (8-23); Carbon Dioxide 21 mEq/L (23-29); Chloride 108 mEq/L (98-107); Glucose 208 mg/dL (70-105); Osmolality,Calculated 307 (280-300); Potassium 3.9 mEq/L (3.5-5.1); Sodium 140 mEq/L (136-145); Troponin I < 0.03 ng/mL (< 0.04); eGFR For African Americans 34 (> 60); eGFR For Non-African Americans 28 (> 60)
[2019-08-20] MEDS ORDERED: Aspirin 325 MG TABLET PO ONE (00:20)
[2019-08-20] MEDS: Nitroglycerin 0.4 MG TAB.SUBL SL SCH ×2 (02:18→02:19)
[2019-08-20] MEDS: Nitroglycerin 25 MG/250 ML INFUS..BTL IVC SCH ×3 (02:18→06:46)
[2019-08-20] MEDS ORDERED: Naloxone 0.4 MG/ML INJ IVP PRN (03:14)
[2019-08-20 06:14] LABS: Mean Corpuscular HGB Conc 34.4 g/dL (31.6-35.5); Mean Corpuscular Hemoglobin 31.7 pg (28.0-33.3); Mean Corpuscular Volume 92.1 fL (83.0-100.0); Mean Platelet Volume 10.8 fL (9.4-12.4); Platelet Count 183 K/mcL (140-400); Red Blood Count 3.91 M/mcL (4.19-5.50); Red Cell Distribution Width 14.2 % (11.5-14.5); White Blood Count 8.5 K/mcL (4.3-11.1)
[2019-08-20 06:17] LABS: Hemoglobin 12.4 g/dL (12.9-16.9)
[2019-08-20 06:34] LABS: Calcium 8.9 mg/dL (8.6-10.3); Potassium 3.8 mEq/L (3.5-5.1)
[2019-08-20 06:36] LABS: Troponin I 0.06 ng/mL (< 0.04)
[2019-08-20] MEDS: Furosemide 40 MG/4 ML VIAL IVP SCH (08:13)
[2019-08-20] MEDS ORDERED: Albumin 25% 25gram/100mL 25 GM/100 ML IV.SOLN IVPB ONE (08:28)
[2019-08-20] MEDS ORDERED: Sacubitril/Valsartan 49/51 MG 1 TABLET PO SCH (09:00)
[2019-08-20] MEDS ORDERED: Perflutren Lipid Microsphere 1.3 ML in 0.9 % Sodium Chloride 8.7 ML IVP ONE (09:47)
[2019-08-20] MEDS: Cholecalciferol (D-3) 1,000 UNIT (25MCG) TABLET PO SCH (10:01)
[2019-08-20] MEDS: Aspirin Enteric Coated 81 MG Tablet PO SCH (10:01)
[2019-08-20] MEDS: Finasteride 5 MG TABLET PO SCH (10:01)
[2019-08-20] MEDS: clonazePAM 0.5 MG TABLET PO SCH ×2 (10:01→20:16)
[2019-08-20] MEDS: *HR* Heparin 5,000 UNIT/ML VIAL SQ SCH (17:32)
[2019-08-21] MEDS: *HR* Heparin 5,000 UNIT/ML VIAL SQ SCH ×2 (05:21→17:07)
[2019-08-21 06:01] LABS: Calcium 9.3 mg/dL (8.6-10.3); Potassium 3.5 mEq/L (3.5-5.1)
[2019-08-21] MEDS: Aspirin Enteric Coated 81 MG Tablet PO SCH (08:37)
[2019-08-21] MEDS: Finasteride 5 MG TABLET PO SCH (08:37)
[2019-08-21] MEDS: clonazePAM 0.5 MG TABLET PO SCH ×2 (08:37→20:06)
[2019-08-21] MEDS: Cholecalciferol (D-3) 1,000 UNIT (25MCG) TABLET PO SCH (08:37)
[2019-08-21] MEDS: Albumin 25% 25gram/100mL 25 GM/100 ML IV.SOLN IVPB SCH ×3 (09:33→23:41)
[2019-08-21] MEDS: Furosemide 40 MG/4 ML VIAL IVP SCH ×2 (12:26→20:06)
[2019-08-21] MEDS: Insulin LISPRO 300 UNITS/3 ML VIAL SQ SCH (16:51)
[2019-08-21] MEDS: Levalbuterol Neb 1.25 MG/3 ML IH SCH (20:39)
[2019-08-21 20:47] LABS: Basophils % 0.3 %; Eosinophils # 0.1 K/mcL (0.0-0.6); Eosinophils % 1.2 %; Hematocrit 36.5 % (37.5-50.1); Hemoglobin 12.1 g/dL (12.9-16.9); Immature Granulocytes % 0.7 % (0-4); Lymphocytes # 0.3 K/mcL (0.6-4.6); Mean Corpuscular HGB Conc 33.2 g/dL (31.6-35.5); Mean Corpuscular Hemoglobin 30.9 pg (28.0-33.3); Mean Corpuscular Volume 93.1 fL (83.0-100.0); Mean Platelet Volume 10.4 fL (9.4-12.4); Monocytes # 0.4 K/mcL (0.0-1.3); Monocytes % 4.4 %; Neutrophils # 8.3 K/mcL (1.6-8.9); Platelet Count 156 K/mcL (140-400); Red Blood Count 3.92 M/mcL (4.19-5.50); Red Cell Distribution Width 14.3 % (11.5-14.5); Segmented Neutrophils % 90.4 %; White Blood Count 9.1 K/mcL (4.3-11.1)
[2019-08-21] MEDS ORDERED: *HR* Metoprolol 5 MG/5 ML VIAL IVP ONE ×2 (21:04→21:09)
[2019-08-21] MEDS ORDERED: Acetaminophen 325 MG TABLET PO ONE (23:48)
[2019-08-22 01:45] LABS: Adenovirus Not Detected (Not Detect); Bordetella Pertussis Not Detected (Not Detect); Chlamydophila pneumoniae Not Detected (Not Detect); Coronavirus 229E Not Detected (Not Detect); Coronavirus HKU1 Not Detected (Not Detect); Coronavirus NL63 Not Detected (Not Detect); Coronavirus OC43 Not Detected (Not Detect); Human Metapneumovirus Not Detected (Not Detect); Human Rhinovirus/Enterovirus Not Detected (Not Detect); Influenza A Subtype 2009 H1 Not Detected (Not Detect); Influenza A Untypeable Not Detected (Not Detect); Influenza B Not Detected (Not Detect); Mycoplasma pneumoniae Not Detected (Not Detect); Parainfluenza Virus 1 DETECTED (Not Detect); Parainfluenza Virus 2 Not Detected (Not Detect); Parainfluenza Virus 3 Not Detected (Not Detect); Parainfluenza Virus 4 Not Detected (Not Detect); Respiratory Syncytial Virus Not Detected (Not Detect)
[2019-08-22 02:16] LABS: Calcium 9.5 mg/dL (8.6-10.3); Potassium 3.5 mEq/L (3.5-5.1)
[2019-08-22] MEDS: Levalbuterol Neb 1.25 MG/3 ML IH SCH ×4 (04:10→22:32)
[2019-08-22] MEDS: *HR* Heparin 5,000 UNIT/ML VIAL SQ SCH ×2 (06:15→18:01)
[2019-08-22] MEDS: Cholecalciferol (D-3) 1,000 UNIT (25MCG) TABLET PO SCH (07:38)
[2019-08-22] MEDS: Furosemide 40 MG/4 ML VIAL IVP SCH (07:38)
[2019-08-22] MEDS: Aspirin Enteric Coated 81 MG Tablet PO SCH (07:38)
[2019-08-22] MEDS: Finasteride 5 MG TABLET PO SCH (07:38)
[2019-08-22] MEDS: clonazePAM 0.5 MG TABLET PO SCH ×2 (07:38→20:57)
[2019-08-22] MEDS: Insulin LISPRO 300 UNITS/3 ML VIAL SQ SCH ×3 (07:39→16:57)
[2019-08-22] MEDS: Albumin 25% 25gram/100mL 25 GM/100 ML IV.SOLN IVPB SCH (07:39)
[2019-08-22 08:39] LABS: Estimated Average Glucose 126 mg/dl
[2019-08-22 15:36] LABS: Creatinine,Urine 92 mg/dL; Microalbumin,Urine > 1350 mg/L; Protein/Creatinine Ratio,Urine 3.58 mg/mg (0.00-0.20); Sodium, Urine 26.1 mEq/L
[2019-08-23 01:05] LABS: Calcium 9.7 mg/dL (8.6-10.3); Potassium 3.4 mEq/L (3.5-5.1)
[2019-08-23] MEDS: Levalbuterol Neb 1.25 MG/3 ML IH SCH ×4 (04:22→22:09)
[2019-08-23] MEDS: *HR* Heparin 5,000 UNIT/ML VIAL SQ SCH ×2 (06:24→16:28)
[2019-08-23] MEDS: Aspirin Enteric Coated 81 MG Tablet PO SCH (07:43)
[2019-08-23] MEDS: Finasteride 5 MG TABLET PO SCH (07:43)
[2019-08-23] MEDS: Cholecalciferol (D-3) 1,000 UNIT (25MCG) TABLET PO SCH (07:43)
[2019-08-23] MEDS: clonazePAM 0.5 MG TABLET PO SCH ×2 (07:43→20:07)
[2019-08-23] MEDS: Insulin LISPRO 300 UNITS/3 ML VIAL SQ SCH ×3 (07:44→16:23)
[2019-08-23] MEDS: Albumin 25% 25gram/100mL 25 GM/100 ML IV.SOLN IVPB SCH ×2 (13:58→20:07)
[2019-08-24] MEDS ORDERED: Acetaminophen 325 MG TABLET PO PRN (02:57)
[2019-08-24] MEDS: Levalbuterol Neb 1.25 MG/3 ML IH SCH ×4 (03:43→21:39)
[2019-08-24] MEDS: Albumin 25% 25gram/100mL 25 GM/100 ML IV.SOLN IVPB SCH ×3 (04:17→22:20)
[2019-08-24] MEDS: *HR* Heparin 5,000 UNIT/ML VIAL SQ SCH ×2 (04:18→16:56)
[2019-08-24 05:24] LABS: Calcium 9.9 mg/dL (8.6-10.3); Potassium 3.4 mEq/L (3.5-5.1)
[2019-08-24] MEDS: Insulin LISPRO 300 UNITS/3 ML VIAL SQ SCH ×3 (08:05→16:17)
[2019-08-24] MEDS: Aspirin Enteric Coated 81 MG Tablet PO SCH (08:06)
[2019-08-24] MEDS: clonazePAM 0.5 MG TABLET PO SCH ×2 (08:07→22:20)
[2019-08-24] MEDS: Finasteride 5 MG TABLET PO SCH (08:07)
[2019-08-24] MEDS: Cholecalciferol (D-3) 1,000 UNIT (25MCG) TABLET PO SCH (08:07)
[2019-08-24] MEDS ORDERED: Potassium Chloride Elixir 20 MEQ/15 ML UDC PO SCH (08:30)
[2019-08-25 02:12] LABS: Basophils % 0.1 %; Eosinophils # 0.2 K/mcL (0.0-0.6); Eosinophils % 2.5 %; Hematocrit 30.5 % (37.5-50.1); Immature Granulocytes % 0.7 % (0-4); Lymphocytes # 0.6 K/mcL (0.6-4.6); Lymphocytes % 8.4 %; Mean Corpuscular HGB Conc 33.1 g/dL (31.6-35.5); Mean Corpuscular Volume 93.6 fL (83.0-100.0); Mean Platelet Volume 11.2 fL (9.4-12.4); Monocytes # 0.3 K/mcL (0.0-1.3); Monocytes % 4.5 %; Neutrophils # 6.3 K/mcL (1.6-8.9); Platelet Count 167 K/mcL (140-400); Red Blood Count 3.26 M/mcL (4.19-5.50); Red Cell Distribution Width 13.8 % (11.5-14.5); Segmented Neutrophils % 83.8 %; White Blood Count 7.5 K/mcL (4.3-11.1)
[2019-08-25 02:14] LABS: Hemoglobin 10.1 g/dL (12.9-16.9)
[2019-08-25 02:33] LABS: Calcium 9.8 mg/dL (8.6-10.3); Magnesium 2.4 mg/dL (1.6-2.6); Phosphorous 2.8 mg/dL (2.7-4.5); Potassium 3.5 mEq/L (3.5-5.1)
[2019-08-25] MEDS: Levalbuterol Neb 1.25 MG/3 ML IH SCH ×4 (03:41→22:07)
[2019-08-25] MEDS: Albumin 25% 25gram/100mL 25 GM/100 ML IV.SOLN IVPB SCH (04:52)
[2019-08-25] MEDS: *HR* Heparin 5,000 UNIT/ML VIAL SQ SCH ×2 (05:14→17:35)
[2019-08-25] MEDS: clonazePAM 0.5 MG TABLET PO SCH ×2 (08:27→21:24)
[2019-08-25] MEDS: Finasteride 5 MG TABLET PO SCH (08:28)
[2019-08-25] MEDS: Insulin LISPRO 300 UNITS/3 ML VIAL SQ SCH ×3 (08:28→17:38)
[2019-08-25] MEDS: Cholecalciferol (D-3) 1,000 UNIT (25MCG) TABLET PO SCH (08:28)
[2019-08-25] MEDS: Aspirin Enteric Coated 81 MG Tablet PO SCH (08:28)
[2019-08-25] MEDS ORDERED: Oxymetazoline Nasal SPRAY BOTTLE NS PRN (10:41)
[2019-08-25 11:15] LABS: ABG Base Excess 0 mEq/L (-2 to 3); ABG HCO3 25 mEq/L (21-27); ABG Oxygen Saturation 89 % (95-98); ABG PCO2 43 mmHg (35-45); ABG PH 7.37 pH Units (7.32-7.45); ABG PO2 58 mmHg (85-104); ABG TCO2 27 mEq/L (20-26)
[2019-08-25] MEDS ORDERED: Azithromycin 500 MG in 0.9 % Sodium Chloride 250 ML IVPB SCH (15:00)
[2019-08-25] MEDS: cefTRIAXone 1,000 MG in Water for inj. (sterile) 10 ML IVP SCH (15:25)
[2019-08-25] MEDS: Furosemide 40 MG/4 ML VIAL IVP SCH ×2 (16:20→20:18)
[2019-08-25 22:23] LABS: Calcium 9.6 mg/dL (8.6-10.3); Magnesium 2.3 mg/dL (1.6-2.6); Phosphorous 3.1 mg/dL (2.7-4.5); Potassium 3.7 mEq/L (3.5-5.1)
[2019-08-25] MEDS: *HR* Metoprolol 5 MG/5 ML VIAL IVP PRN ×3 (22:23→22:37)
[2019-08-25] MEDS ORDERED: Amiodarone Premix 360 MG/200 ML BAG IVC ONE (22:38)
[2019-08-25] MEDS ORDERED: Amiodarone Premix 150 MG/100 ML BAG IVPB ONE (22:38)
[2019-08-25] MEDS ORDERED: Amiodarone Premix 360 MG/200 ML BAG IVC SCH (22:45)
[2019-08-26 01:52] LABS: Basophils % 0.3 %; Eosinophils # 0.3 K/mcL (0.0-0.6); Eosinophils % 3.4 %; Hematocrit 29.6 % (37.5-50.1); Hemoglobin 9.4 g/dL (12.9-16.9); Immature Granulocytes % 0.7 % (0-4); Lymphocytes # 0.7 K/mcL (0.6-4.6); Lymphocytes % 9.7 %; Mean Corpuscular HGB Conc 31.8 g/dL (31.6-35.5); Mean Corpuscular Hemoglobin 30.7 pg (28.0-33.3); Mean Corpuscular Volume 96.7 fL (83.0-100.0); Mean Platelet Volume 11.3 fL (9.4-12.4); Monocytes # 0.4 K/mcL (0.0-1.3); Neutrophils # 6.2 K/mcL (1.6-8.9); Platelet Count 166 K/mcL (140-400); Red Blood Count 3.06 M/mcL (4.19-5.50); Red Cell Distribution Width 13.9 % (11.5-14.5); Segmented Neutrophils % 80.9 %; White Blood Count 7.6 K/mcL (4.3-11.1)
[2019-08-26 02:08] LABS: Calcium 9.6 mg/dL (8.6-10.3); Magnesium 2.1 mg/dL (1.6-2.6); Phosphorous 3.2 mg/dL (2.7-4.5); Potassium 3.5 mEq/L (3.5-5.1)
[2019-08-26] MEDS: Levalbuterol Neb 1.25 MG/3 ML IH SCH ×4 (04:22→22:52)
[2019-08-26] MEDS: *HR* Heparin 5,000 UNIT/ML VIAL SQ SCH (04:42)
[2019-08-26] MEDS: Amiodarone Premix 360 MG/200 ML BAG IVC SCH ×2 (04:42→17:03)
[2019-08-26] MEDS: Cholecalciferol (D-3) 1,000 UNIT (25MCG) TABLET PO SCH (09:14)
[2019-08-26] MEDS: Furosemide 40 MG/4 ML VIAL IVP SCH ×2 (09:14→20:13)
[2019-08-26] MEDS: Apixaban 5 MG TABLET PO SCH ×2 (09:14→20:13)
[2019-08-26] MEDS: Finasteride 5 MG TABLET PO SCH (09:14)
[2019-08-26] MEDS: cefTRIAXone 1,000 MG in Water for inj. (sterile) 10 ML IVP SCH (09:14)
[2019-08-26] MEDS: clonazePAM 0.5 MG TABLET PO SCH ×2 (09:14→20:13)
[2019-08-26] MEDS: Aspirin Enteric Coated 81 MG Tablet PO SCH (09:14)
[2019-08-26] MEDS: Insulin LISPRO 300 UNITS/3 ML VIAL SQ SCH ×3 (09:34→17:02)
[2019-08-26 09:43] LABS: Thyroid Stimulating Hormone 0.809 mcIU/mL (0.340-5.600)
[2019-08-26] MEDS ORDERED: *HR* Digoxin 0.5 MG/2 ML AMPUL IVP ONE (11:13)
[2019-08-27 02:52] LABS: Basophils % 0.4 %; Eosinophils # 0.4 K/mcL (0.0-0.6); Eosinophils % 4.1 %; Hematocrit 32.2 % (37.5-50.1); Hemoglobin 10.7 g/dL (12.9-16.9); Immature Granulocytes % 0.7 % (0-4); Lymphocytes # 0.8 K/mcL (0.6-4.6); Lymphocytes % 8.6 %; Mean Corpuscular HGB Conc 33.2 g/dL (31.6-35.5); Mean Corpuscular Hemoglobin 30.8 pg (28.0-33.3); Mean Corpuscular Volume 92.8 fL (83.0-100.0); Mean Platelet Volume 11.5 fL (9.4-12.4); Monocytes # 0.5 K/mcL (0.0-1.3); Monocytes % 5.4 %; Neutrophils # 7.3 K/mcL (1.6-8.9); Platelet Count 212 K/mcL (140-400); Red Blood Count 3.47 M/mcL (4.19-5.50); Red Cell Distribution Width 13.7 % (11.5-14.5); Segmented Neutrophils % 80.8 %; White Blood Count 9.1 K/mcL (4.3-11.1)
[2019-08-27 03:12] LABS: Calcium 9.8 mg/dL (8.6-10.3); Magnesium 2.2 mg/dL (1.6-2.6); Potassium 3.5 mEq/L (3.5-5.1)
[2019-08-27] MEDS: Levalbuterol Neb 1.25 MG/3 ML IH SCH ×4 (03:43→21:58)
[2019-08-27] MEDS: Amiodarone Premix 360 MG/200 ML BAG IVC SCH ×2 (04:04→16:10)
[2019-08-27] MEDS: Apixaban 5 MG TABLET PO SCH ×2 (08:21→19:55)
[2019-08-27] MEDS: Insulin LISPRO 300 UNITS/3 ML VIAL SQ SCH ×3 (08:21→17:02)
[2019-08-27] MEDS: Cholecalciferol (D-3) 1,000 UNIT (25MCG) TABLET PO SCH (08:21)
[2019-08-27] MEDS: Furosemide 40 MG/4 ML VIAL IVP SCH ×2 (08:21→19:55)
[2019-08-27] MEDS: clonazePAM 0.5 MG TABLET PO SCH ×2 (08:21→19:54)
[2019-08-27] MEDS: Finasteride 5 MG TABLET PO SCH (08:21)
[2019-08-27] MEDS: cefTRIAXone 1,000 MG in Water for inj. (sterile) 10 ML IVP SCH (08:22)
[2019-08-27] MEDS: *HR* Amiodarone 200 MG TABLET PO SCH ×2 (13:33→19:54)
[2019-08-28 01:28] LABS: Basophils % 0.3 %; Eosinophils # 0.4 K/mcL (0.0-0.6); Eosinophils % 4.1 %; Hematocrit 29.8 % (37.5-50.1); Hemoglobin 9.7 g/dL (12.9-16.9); Immature Granulocytes % 1.4 % (0-4); Lymphocytes % 11.5 %; Mean Corpuscular HGB Conc 32.6 g/dL (31.6-35.5); Mean Corpuscular Volume 92.3 fL (83.0-100.0); Mean Platelet Volume 11.2 fL (9.4-12.4); Monocytes # 0.5 K/mcL (0.0-1.3); Monocytes % 5.8 %; Neutrophils # 6.7 K/mcL (1.6-8.9); Platelet Count 220 K/mcL (140-400); Red Blood Count 3.23 M/mcL (4.19-5.50); Red Cell Distribution Width 13.7 % (11.5-14.5); Segmented Neutrophils % 76.9 %; White Blood Count 8.7 K/mcL (4.3-11.1)
[2019-08-28 01:48] LABS: Calcium 9.3 mg/dL (8.6-10.3); Magnesium 2.1 mg/dL (1.6-2.6); Phosphorous 3.7 mg/dL (2.7-4.5); Potassium 3.5 mEq/L (3.5-5.1)
[2019-08-28] MEDS: Levalbuterol Neb 1.25 MG/3 ML IH SCH ×4 (03:55→22:13)
[2019-08-28] MEDS: *HR* Amiodarone 200 MG TABLET PO SCH ×2 (08:12→21:48)
[2019-08-28] MEDS: Cholecalciferol (D-3) 1,000 UNIT (25MCG) TABLET PO SCH (08:13)
[2019-08-28] MEDS: Finasteride 5 MG TABLET PO SCH (08:13)
[2019-08-28] MEDS: clonazePAM 0.5 MG TABLET PO SCH ×2 (08:13→21:48)
[2019-08-28] MEDS: Apixaban 5 MG TABLET PO SCH ×2 (08:13→21:48)
[2019-08-28] MEDS: cefTRIAXone 1,000 MG in Water for inj. (sterile) 10 ML IVP SCH (08:14)
[2019-08-28] MEDS: Insulin LISPRO 300 UNITS/3 ML VIAL SQ SCH ×3 (08:14→17:33)
[2019-08-29 02:12] LABS: Basophils % 0.3 %; Eosinophils # 0.4 K/mcL (0.0-0.6); Eosinophils % 4.1 %; Hematocrit 28.5 % (37.5-50.1); Hemoglobin 9.3 g/dL (12.9-16.9); Immature Granulocytes % 1.5 % (0-4); Lymphocytes # 0.9 K/mcL (0.6-4.6); Lymphocytes % 10.5 %; Mean Corpuscular HGB Conc 32.6 g/dL (31.6-35.5); Mean Corpuscular Hemoglobin 30.7 pg (28.0-33.3); Mean Corpuscular Volume 94.1 fL (83.0-100.0); Mean Platelet Volume 11.5 fL (9.4-12.4); Monocytes # 0.5 K/mcL (0.0-1.3); Monocytes % 5.6 %; Neutrophils # 6.8 K/mcL (1.6-8.9); Platelet Count 214 K/mcL (140-400); Red Blood Count 3.03 M/mcL (4.19-5.50); Red Cell Distribution Width 13.7 % (11.5-14.5); White Blood Count 8.8 K/mcL (4.3-11.1)
[2019-08-29 02:29] LABS: Calcium 9.4 mg/dL (8.6-10.3); Magnesium 2.2 mg/dL (1.6-2.6); Phosphorous 3.6 mg/dL (2.7-4.5); Potassium 2.9 mEq/L (3.5-5.1)
[2019-08-29] MEDS: Levalbuterol Neb 1.25 MG/3 ML IH SCH ×2 (04:35→10:46)
[2019-08-29] MEDS: *HR* Amiodarone 200 MG TABLET PO SCH (07:54)
[2019-08-29] MEDS: clonazePAM 0.5 MG TABLET PO SCH (07:54)
[2019-08-29] MEDS: Cholecalciferol (D-3) 1,000 UNIT (25MCG) TABLET PO SCH (07:54)
[2019-08-29] MEDS: cefTRIAXone 1,000 MG in Water for inj. (sterile) 10 ML IVP SCH (07:55)
[2019-08-29] MEDS: Apixaban 5 MG TABLET PO SCH (07:55)
[2019-08-29] MEDS: Finasteride 5 MG TABLET PO SCH (07:56)
[2019-08-29] MEDS: Insulin LISPRO 300 UNITS/3 ML VIAL SQ SCH ×2 (08:48→12:24)
[2019-08-29] MEDS: Potassium Chloride Elixir 20 MEQ/15 ML UDC PO SCH ×2 (09:01→11:19)
[2019-08-29 11:46] VITALS: BP 142/79
[2019-08-29] MEDS ORDERED: *HR* Amiodarone 200 MG TABLET PO SCH (21:00)
== END 2019-08-29 15:49 | disposition home or self-care (01) | DRG 291 ==
LOC: EMEROOARM 21:35 → 2NNU 21:35 → SUATTDRO 23:57 → 2NNU 08-20 01:21
PROVIDERS: ADMIT Internal Medicine; ATTEND Internal Medicine